=== PATIENT | male | born 1950 | race Caucasian/White ===

== ENCOUNTER 2021-04-12 08:37 | Outpatient (REF) | payer MEDICARE, SELFPAY ==
[2021-04-12 11:13] LABS: Hematocrit 36.9 % (42-52); Hemoglobin 12.3 g/dl (14.0-18.0); Mean Corpuscular HGB Conc 33.3 g/dl (31.0-36.0); Mean Corpuscular Hemoglobin 29.5 pg (27.0-33.0); Mean Corpuscular Volume 88.5 fL (80-98); Mean Platelet Volume 10.5 fL (9.4-12.4); Platelet Count 209 X10*3/uL (160-400); Red Blood Count 4.17 X10*6/uL (4.60-5.80); Red Cell Distribution Width 12.6 % (11.0-16.0); White Blood Count 6.8 X10*3/uL (4.8-10.8)
[2021-04-12 11:21] LABS: Estimated Average Glucose 140 mg/dL; Hemoglobin A1c % 6.5 %
[2021-04-12 11:58] LABS: Alanine Aminotransferase 27 U/L (0-40); Albumin Level 4.5 g/dL (3.5-5.0); Alkaline Phosphatase 73 U/L (39-117); Anion Gap 16 (12-20); Aspartate Amino Transferase 19 U/L (5-37); Bilirubin Total 0.4 mg/dL (0.0-1.0); Blood Urea Nitrogen 15 mg/dL (9-16); Calcium 9.6 mg/dL (8.4-10.2); Carbon Dioxide 24 mmol/L (22-29); Chloride 105 mmol/L (96-108); Estimated Glomerular Filt Rate > 60; Glucose Random 151 mg/dL (60-115); Potassium 4.7 mmol/L (3.3-5.1); Sodium 140 mmol/L (135-145)
[2021-04-12 12:09] LABS: Creatinine Urine 68.89 mg/dL; Microalbum/Creatinine Ratio Ur 18.8 ug/mg cr
== END 2021-04-12 08:38 | disposition home or self-care (01) ==
LOC: HO.MANLDS 08:37
PROVIDERS: Visit Provider Internal Medicine
DX: E11.9 Type 2 diabetes mellitus without complications (principal)
CPT/HCPCS: 36415; 80053; 82043; 83036; 85027

== ENCOUNTER 2021-08-16 11:55 | Outpatient (REF) | payer MEDICARE, SELFPAY ==
[2021-08-16 13:17] LABS: Alanine Aminotransferase 41 U/L (0-40); Albumin Level 4.4 g/dL (3.5-5.0); Alkaline Phosphatase 77 U/L (39-117); Anion Gap 14 (12-20); Aspartate Amino Transferase 26 U/L (5-37); Bilirubin Total 0.5 mg/dL (0.0-1.0); Blood Urea Nitrogen 17 mg/dL (9-16); Calcium 9.2 mg/dL (8.4-10.2); Carbon Dioxide 25 mmol/L (22-29); Chloride 103 mmol/L (96-108); Cholesterol 176 mg/dL; Estimated Glomerular Filt Rate > 60; Glucose Fasting 160 mg/dL (60-99); HDL Cholesterol 40 mg/dL; LDL Cholesterol Calculated 71 mg/dl; Potassium 5.2 mmol/L (3.3-5.1); Sodium 137 mmol/L (135-145); Total Protein 7.2 g/dL (6.5-8.0); Triglycerides 326 mg/dL
[2021-08-16 13:19] LABS: Creatinine Urine 61.64 mg/dL; Microalbum/Creatinine Ratio Ur 38.9 ug/mg cr
[2021-08-16 13:43] LABS: Estimated Average Glucose 137 mg/dL; Hemoglobin A1c % 6.4 %
== END 2021-08-16 11:56 | disposition home or self-care (01) ==
LOC: HO.MANLDS 11:55
PROVIDERS: PCP Internal Medicine; Visit Provider Internal Medicine
DX: E11.9 Type 2 diabetes mellitus without complications (principal)
CPT/HCPCS: 36415; 80053; 80061; 82043; 83036

== ENCOUNTER 2022-02-28 11:05 | Outpatient (REF) | payer MEDICARE, SELFPAY ==
[2022-02-28 13:27] LABS: Estimated Average Glucose 128 mg/dL; Hemoglobin A1C 150.8502 umol/L; Hemoglobin A1c % 6.1 %
[2022-03-03 04:04] LABS: ~HepC Num1 0.07 S/CO (0.00-0.79); ~Hepatitis C Antibody Nonreactive (Nonreactive)
== END 2022-02-28 11:06 | disposition home or self-care (01) ==
LOC: HO.MANLDS 11:05
PROVIDERS: PCP Internal Medicine; Visit Provider Internal Medicine
DX: Z11.59 Encounter for screening for other viral diseases (principal); E11.9 Type 2 diabetes mellitus without complications
CPT/HCPCS: 36415; 83036; 86803

== ENCOUNTER 2022-07-23 12:10 | Outpatient (REF) | payer MEDICARE, SELFPAY ==
[2022-07-23 19:16] LABS: Alanine Aminotransferase 32 U/L (0-40); Albumin Level 4.4 g/dL (3.5-5.0); Alkaline Phosphatase 75 U/L (39-117); Anion Gap 20 (12-20); Aspartate Amino Transferase 26 U/L (5-37); Bilirubin Total 0.5 mg/dL (0.0-1.0); Blood Urea Nitrogen 15 mg/dL (9-16); Calcium 9.6 mg/dL (8.4-10.2); Carbon Dioxide 22 mmol/L (22-29); Chloride 104 mmol/L (96-108); Estimated Glomerular Filt Rate > 60; Glucose Random 64 mg/dL (60-115); Magnesium 1.9 mg/dL (1.6-2.6); Potassium 4.7 mmol/L (3.3-5.1); Sodium 141 mmol/L (135-145); Total Protein 7.2 g/dL (6.5-8.0)
[2022-07-25 12:06] LABS: Calcium (PTHI) 9.8 mg/dL (8.6-10.3); PTHI 22 pg/mL (16-77)
== END 2022-07-23 12:11 | disposition home or self-care (01) ==
LOC: HO.MANLDS 12:10
PROVIDERS: Visit Provider Physician Assistant
DX: I21.4 Non-ST elevation (NSTEMI) myocardial infarction (principal); R53.83 Other fatigue
CPT/HCPCS: 36415; 80053; 83735; 83970

== ENCOUNTER 2022-12-26 11:22 | Outpatient (REF) | payer MEDICARE, SELFPAY ==
[2022-12-26 13:27] LABS: Estimated Average Glucose 134 mg/dL; Hemoglobin A1c % 6.3 %
== END 2022-12-26 11:23 | disposition home or self-care (01) ==
LOC: HO.MANLDS 11:22
PROVIDERS: Visit Provider Internal Medicine
DX: E11.9 Type 2 diabetes mellitus without complications (principal)
CPT/HCPCS: 36415; 83036

== ENCOUNTER 2023-01-10 20:06 | Emergency (ER) | payer MEDICARE, SELFPAY ==
[2023-01-10] VITALS (7 sets, daily range): BP systolic 151–200; BP diastolic 53–74; PULSE 82–102; RESP 12–20; TEMP 36.7–36.8; O2SAT 96–99; BMI 29.8
--- NOTE | ~2023-01-10 | CT_ITS ---
EXAMINATION CTA CHEST, ABDOMEN AND PELVIS CLINICAL INFORMATION: Pain. Rule out aortic dissection. COMPARISON: None. TECHNIQUE: Multidetector volumetric CT imaging of the chest, abdomen and pelvis was obtained after the administration of 70 mL Omnipaque 350 intravenous contrast without immediate adverse reactions. Coronal and sagittal reformats were reviewed. This CT examination was performed using dose optimization techniques as appropriate, variously including the following: *Automated exposure control *Adjustment of mA and/or kV according to patient size (this includes techniques or standardized protocols for targeted exams where dose is matched to indication/reason for exam; i.e. extremities or head) *Use of iterative reconstruction technique DLP: 1091 mGy-cm FINDINGS: VASCULAR: No aortic aneurysm, penetrating atherosclerotic ulceration or dissection. Assessment for intramural hematoma is limited due to the lack of a noncontrast phase, however there is no obvious intimal thickening to suggest that diagnosis. The aorta that show moderate calcific atherosclerotic change. 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 There is high-grade focal stenosis of the superior mesenteric artery just distal to the takeoff of a replaced right hepatic artery. Inferior mesenteric artery is patent. Bilateral iliac and femoral arteries are patent. NONVASCULAR: CHEST: Mild emphysema. Diffuse mild bronchial wall thickening without bronchiectasis. No parenchymal consolidation or pneumonitis. Mild cardiomegaly. No pericardial effusion. Triple vessel coronary calcifications. No mediastinal, hilar or supraclavicular lymphadenopathy. Imaged thyroid gland is normal. Chest wall are unremarkable. ABDOMEN/PELVIS: Liver normal in size, contour and morphology. No focal liver lesions. Cholecystectomy. Pancreas, spleen, adrenal glands and kidneys are unremarkable. A simple cyst in the lower pole of the right kidney is benign. No follow-up imaging recommended. No bowel related abnormalities. Fiducial markers in the prostate. Bladder unremarkable. MUSCULOSKELETAL: No acute or suspicious osseous abnormalities. CT/CT angio abdomen pelvis IMPRESSION: * No aortic aneurysm or dissection. * No acute findings within the chest, abdomen or pelvis. * Triple vessel coronary calcifications. * Mild emphysema and airways disease. 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
--- NOTE | ~2023-01-10 | CT_ITS ---
EXAMINATION: CT HEAD WITHOUT CONTRAST CLINICAL INFORMATION: Altered mental status COMPARISON: None available. TECHNIQUE: Contiguous axial imaging was performed from the skull base to vertex without intravenous administration of contrast. This CT examination was performed using dose optimization techniques as appropriate, variously including the following: *Automated exposure control *Adjustment of mA and/or kV according to patient size (this includes techniques or standardized protocols for targeted exams where dose is matched to indication/reason for exam; i.e. extremities or head) *Use of iterative reconstruction technique DLP: 884 mGy-cm FINDINGS: Residual intravascular contrast from the previous CTA of the chest, abdomen and pelvis is present. This limits assessment for intracranial bleeding. No significant intraparenchymal hemorrhage. No extra-axial collection. Butts-white matter interfaces distinct. Mild patchy subcortical and periventricular white matter low-attenuation changes statistically relates to chronic small vessel ischemic disease. No calvarial skull base fracture. Paranasal sinuses are clear. CT/CT head/brain wo IV con IMPRESSION: * No acute intracranial pathology. * Mild chronic white matter small vessel ischemic changes.
--- NOTE | 2023-01-10 08:47 | ECG_ITS ---
Test Reason : cp Blood Pressure : / mmHG Vent. Rate : 094 BPM Atrial Rate : 094 BPM P-R Int : 154 ms QRS Dur : 086 ms QT Int : 328 ms P-R-T Axes : 061 055 055 degrees QTc Int : 410 ms Normal sinus rhythm Normal ECG When compared with ECG of 10-JAN-2023 20:11, Premature ventricular complexes are no longer Present Referred By: Laya Meneses Electronically Signed By:Dallas Elaine
--- NOTE | 2023-01-10 20:09 | ECG_ITS ---
Test Reason : cp Blood Pressure : / mmHG Vent. Rate : 097 BPM Atrial Rate : 097 BPM P-R Int : 210 ms QRS Dur : 078 ms QT Int : 366 ms P-R-T Axes : 026 019 016 degrees QTc Int : 464 ms Sinus rhythm with 1st degree A-V block with occasional Premature ventricular complexes Nonspecific ST abnormality Abnormal ECG No previous ECGs available Referred By: Laya Meneses Electronically Signed By:KRISTEL MEZA
--- NOTE | 2023-01-10 20:19 | ED_ITS ---
HPI - Chest Pain General Chief Complaint: Chest Pain Stated Complaint: chest pain Time Seen by Provider: 01/10/23 20:09 History of Present Illness HPI narrative: Patient is a 72-year-old male presented today with having chest pain sudden onset radiating to the back. [place] with a history of coronary artery disease status post stent complaining of excruciating chest pain going from the front radiating to the back. Has a history of hypertension. Unable to give any more detail as to what kind of past medical history he has. Patient denies any fever chills no coughing or congestion upper respiratory symptom. Screaming in pain. Related Data Allergies Allergy/AdvReac Type Severity Reaction Status Date / Time Unable to Assess Allergy Verified 01/10/23 20:10 Review of Systems Review of Systems: Positive chest pain Yes all other systems are reviewed and are negative [facility] Past Medical History Attestation statement: The following information was validated with the patient. Social History Social History Advance Directives: No Advance Directives Information Provided: Yes Physical Exam Vital Signs: Vital Signs: Last Vital Signs Temp 98.1 F 01/10/23 21:45 Pulse 82 01/10/23 23:40 Resp 12 01/10/23 23:40 BP 153/53 H 01/10/23 23:40 Pulse Ox 96 01/10/23 23:40 O2 Del Method Room Air 01/10/23 23:40 O2 Flow Rate 2 01/10/23 21:45 BMI result Body Mass Index 29.8 Appearance: Alert. Oriented X3. Complaining of excruciating pain. Eyes: Pupils equal, round and reactive to light. ENT: Pharynx normal. Neck: Normal inspection. Neck supple. No lymph nodes noted. No crepitus CVS: Normal heart rate and rhythm. Pulses normal. Normal S1 and S2 Respiratory: No respiratory distress. Breath sounds normal. No Wheezing. No rales Abdomen: Soft and nontender. No rigidity. No distention. good BS x4 Skin: Skin warm and dry. Normal skin color. Normal skin turgor. Extremities: No lower extremity edema. Neurovascular intact to all extremities. No Lacerations. No Rash Neuro: Oriented X 3. No motor deficit. No sensory deficit. Moving all extermities. No slurred speech Medications Administered Discontinued Medications Generic Name Dose Route Start Last Admin Trade Name Farida PRN Reason Stop Dose Admin Al Hydroxide/Mg Hydroxide 30 ml 01/11/23 00:24 01/11/23 00:33 Magnesium Hydrox/Alum Hydrox 30 Ml Oral.Susp PO 01/11/23 00:25 30 ml ONCE ONE Administration Dicyclomine HCl 10 mg 01/11/23 00:24 01/11/23 00:33 Dicyclomine Hcl 10 Mg Capsule PO 01/11/23 00:25 10 mg ONCE ONE Administration Iohexol 100 ml 01/10/23 20:47 01/10/23 20:47 Iohexol 350 Mg/Ml 100 Ml Infus..Btl IV 01/10/23 20:48 70 ml ONCE ONE Administration Lidocaine HCl 15 ml 01/11/23 00:24 01/11/23 00:33 Lidocaine Hcl Viscous 2 % 15 Ml Solution MUCOUS MEM 01/11/23 00:25 15 ml ONCE ONE Administration Morphine Sulfate 4 mg 01/10/23 20:15 01/10/23 20:44 Morphine Sulfate 4 Mg/Ml Cartridge IVPUSH 01/10/23 20:16 4 mg ONCE ONE Administration Protocol Medical Decision Making Medical Decision Making [facility] Narrative: Patient presents today with having extreme chest pain that goes from the front to the back. Patient appears lethargic when he arrived. Appears grossly intoxicated. Patient's EKG showed no evidence for a STEMI. Patient's blood pressure elevated. Grabbing his chest with a previous history of coronary artery disease and stents a CTA of the chest abdomen pelvis was done to rule out the possibility of dissection. This CTA was negative. No dissection noted. No pneumonia no pneumothorax no rib fracture. No gross abdominal pathology noted. Patient's troponin was 10, 2nd set was also about 10. Third set was 13. Grossly negative. No evidence for ACS. Patient's alcohol is elevated. At 140. Explained to patient the need to not drive when he is grossly intoxicated. Patient states understanding. He is being discharged home. Close follow-up on an outpatient basis. His symptom improved after GI cocktail. His history is not consistent with a pulmonary emboli. Differential Diagnosis Differential Diagnoses: The differential diagnosis associated with the presentation includes ACS, dissection, pneumonia, pneumothorax Lab Data [facility] Lab Attestation statement: I reviewed the patient's lab results. 01/10/23 20:18 01/10/23 20:18 Labs: Lab Results 01/10/23 01/10/23 01/10/23 Range/Units 20:18 20:18 20:18 WBC 11.6 H (4.8-10.8) X10*3/uL RBC 4.25 L (4.60-5.80) X10*6/uL Hgb 12.8 L (14.0-18.0) g/dl Hct 37.3 L (42.0-52.0) % MCV 87.8 (80.0-98.0) fL MCH 30.1 (27.0-33.0) pg MCHC 34.3 (31.0-36.0) g/dl RDW 12.4 (11.0-16.0) % Plt Count 238 (160-400) X10*3/uL MPV 10.2 (9.4-12.4) fL Immature Gran % (Auto) 0.3 (0.0-0.4) % Neut % (Auto) 58.3 (45-73) % Lymph % (Auto) 27.2 (20-40) % [place] % (Auto) 11.4 H (2-11) % Eos % (Auto) 2.2 (0-4) % Baso % (Auto) 0.6 (0-2) % Lymph # (Auto) 3.2 (1.2-4.9) X10*3/uL [place] # (Auto) 1.3 H (0.1-1.2) X10*3/uL Eos # (Auto) 0.3 (0.0-0.4) X10*3/uL Baso # (Auto) 0.1 (0.0-0.2) X10*3/uL Abs Immat Gran (auto) 0.04 H (0.00-0.03) X10*3/uL Absolute Neuts (auto) 6.7 (2.0-8.3) x10*3/uL Absolute Nucleated RBC 0.000 (0.0-0.012) X10*3/uL Nucleated RBC % (auto) 0.0 (0.0-0.2) /100WBC PT 10.2 (10.0-13.1) SEC INR 0.9 (0.9-1.1) D-Dimer High Sensitivty 345 NG/ML Sodium 140 (135-145) mmol/L Potassium 4.7 (3.3-5.1) mmol/L Chloride 105 (96-108) mmol/L Carbon Dioxide 22 (22-29) mmol/L Anion Gap 18 (12-20) BUN 17 H (9-16) mg/dL Creatinine 1.10 (0.5-1.4) mg/dL Estim Creat Clear Calc 62.5 Estimated GFR > 60 Random Glucose 130 H (60-115) mg/dL Calcium 9.3 (8.4-10.2) mg/dL Magnesium 2.2 (1.6-2.6) mg/dL Troponin I High Sens (<3.5-35.0) ng/L Ethyl Alcohol mg/dL COVID-19 ([facility]) (Negative) COVID-19 Clin Com 01/10/23 01/10/23 01/10/23 Range/Units 20:18 20:18 22:07 WBC (4.8-10.8) X10*3/uL RBC (4.60-5.80) X10*6/uL Hgb (14.0-18.0) g/dl Hct (42.0-52.0) % MCV (80.0-98.0) fL MCH (27.0-33.0) pg MCHC (31.0-36.0) g/dl RDW (11.0-16.0) % Plt Count (160-400) X10*3/uL MPV (9.4-12.4) fL Immature Gran % (Auto) (0.0-0.4) % Neut % (Auto) (45-73) % Lymph % (Auto) (20-40) % [place] % (Auto) (2-11) % Eos % (Auto) (0-4) % Baso % (Auto) (0-2) % Lymph # (Auto) (1.2-4.9) X10*3/uL [place] # (Auto) (0.1-1.2) X10*3/uL Eos # (Auto) (0.0-0.4) X10*3/uL Baso # (Auto) (0.0-0.2) X10*3/uL Abs Immat Gran (auto) (0.00-0.03) X10*3/uL Absolute Neuts (auto) (2.0-8.3) x10*3/uL Absolute Nucleated RBC (0.0-0.012) X10*3/uL Nucleated RBC % (auto) (0.0-0.2) /100WBC PT (10.0-13.1) SEC INR (0.9-1.1) D-Dimer High Sensitivty NG/ML Sodium (135-145) mmol/L Potassium (3.3-5.1) mmol/L Chloride (96-108) mmol/L Carbon Dioxide (22-29) mmol/L Anion Gap (12-20) BUN (9-16) mg/dL Creatinine (0.5-1.4) mg/dL Estim Creat Clear Calc Estimated GFR Random Glucose (60-115) mg/dL Calcium (8.4-10.2) mg/dL Magnesium (1.6-2.6) mg/dL Troponin I High Sens 10.0 10.8 (<3.5-35.0) ng/L Ethyl Alcohol 140 mg/dL COVID-19 ([facility]) (Negative) COVID-19 Clin Com 01/10/23 01/11/23 Range/Units 23:00 00:54 WBC (4.8-10.8) X10*3/uL RBC (4.60-5.80) X10*6/uL Hgb (14.0-18.0) g/dl Hct (42.0-52.0) % MCV (80.0-98.0) fL MCH (27.0-33.0) pg MCHC (31.0-36.0) g/dl RDW (11.0-16.0) % Plt Count (160-400) X10*3/uL MPV (9.4-12.4) fL Immature Gran % (Auto) (0.0-0.4) % Neut % (Auto) (45-73) % Lymph % (Auto) (20-40) % [place] % (Auto) (2-11) % Eos % (Auto) (0-4) % Baso % (Auto) (0-2) % Lymph # (Auto) (1.2-4.9) X10*3/uL [place] # (Auto) (0.1-1.2) X10*3/uL Eos # (Auto) (0.0-0.4) X10*3/uL Baso # (Auto) (0.0-0.2) X10*3/uL Abs Immat Gran (auto) (0.00-0.03) X10*3/uL Absolute Neuts (auto) (2.0-8.3) x10*3/uL Absolute Nucleated RBC (0.0-0.012) X10*3/uL Nucleated RBC % (auto) (0.0-0.2) /100WBC PT (10.0-13.1) SEC INR (0.9-1.1) D-Dimer High Sensitivty NG/ML Sodium (135-145) mmol/L Potassium (3.3-5.1) mmol/L Chloride (96-108) mmol/L Carbon Dioxide (22-29) mmol/L Anion Gap (12-20) BUN (9-16) mg/dL Creatinine (0.5-1.4) mg/dL Estim Creat Clear Calc Estimated GFR Random Glucose (60-115) mg/dL Calcium (8.4-10.2) mg/dL Magnesium (1.6-2.6) mg/dL Troponin I High Sens 13.4 (<3.5-35.0) ng/L Ethyl Alcohol mg/dL COVID-19 ([facility]) Negative (Negative) COVID-19 Clin Com See Note Independent Interpretation I performed an independent interpretation of an: EKG Interpretation: Patient's EKG showed a heart rate of 80 MO QRS QTC within normal limits there is no acute ST segment elevation noted. Radiology Impression Discussion of test interpretation with radiology: I have reviewed the radiologist's reading. External Record Review External record reviewed: Inpatient record Chronic Conditions Patient?s care impacted by: Hypertension ACS Discharge Plan Discharge Clinical Impression: Chest pain, Alcohol intoxication Patient Disposition: Home, Self-Care Instructions: Chest Pain (DC), Alcohol Intoxication (ED) Referrals: Physician,Unknown J [Primary Care Provider] - 01/13/23
[2023-01-10 20:23] LABS: MANUAL DIFF FLAG NO
[2023-01-10 20:24] LABS: Basophils Absolute Auto 0.1 X10*3/uL (0.0-0.2); Basophils Percent Auto 0.6 % (0-2); Eosinophils Absolute Auto 0.3 X10*3/uL (0.0-0.4); Eosinophils Percent Auto 2.2 % (0-4); Hematocrit 37.3 % (42.0-52.0); Hemoglobin 12.8 g/dl (14.0-18.0); Imm Gran Abs Auto 0.04 X10*3/uL (0.00-0.03); Imm Gran Pct Auto 0.3 % (0.0-0.4); Lymphocytes Absolute Auto 3.2 X10*3/uL (1.2-4.9); Lymphocytes Percent Auto 27.2 % (20-40); Mean Corpuscular HGB Conc 34.3 g/dl (31.0-36.0); Mean Corpuscular Hemoglobin 30.1 pg (27.0-33.0); Mean Corpuscular Volume 87.8 fL (80.0-98.0); Mean Platelet Volume 10.2 fL (9.4-12.4); Monocytes Absolute Auto 1.3 X10*3/uL (0.1-1.2); Monocytes Percent Auto 11.4 % (2-11); Neutrophils Absolute Auto 6.7 x10*3/uL (2.0-8.3); Neutrophils Percent Auto 58.3 % (45-73); Platelet Count 238 X10*3/uL (160-400); Red Blood Count 4.25 X10*6/uL (4.60-5.80); Red Cell Distribution Width 12.4 % (11.0-16.0); White Blood Count 11.6 X10*3/uL (4.8-10.8)
--- NOTE | 2023-01-10 20:25 | PC.NURSE ---
Pt alert and oriented to self and situation. Reports severe chest pain. Guarding at the chest area. Speaking in short sentences. EKG obtained. 20G IV line started on the left hand after multiple attempts. Labs drawn and sent. MD at bedside. Pt currently at Ct scan.
[2023-01-10 20:30] LABS: INTERNATIONAL NORM RATIO 0.9 (0.9-1.1); Prothrombin Time 10.2 SEC (10.0-13.1)
[2023-01-10 20:32] LABS: D Dimer High Sensitivity 345 NG/ML
[2023-01-10 20:40] LABS: Ethanol 140 mg/dL
[2023-01-10 20:44] LABS: Anion Gap 18 (12-20); Blood Urea Nitrogen 17 mg/dL (9-16); Calcium 9.3 mg/dL (8.4-10.2); Carbon Dioxide 22 mmol/L (22-29); Chloride 105 mmol/L (96-108); Creatinine Clr Calc Pharmacy 62.5; Estimated Glomerular Filt Rate > 60; Glucose Random 130 mg/dL (60-115); Magnesium 2.2 mg/dL (1.6-2.6); Potassium 4.7 mmol/L (3.3-5.1); Sodium 140 mmol/L (135-145)
[2023-01-10] MEDS: Morphine Sulfate 4 MG/ML CARTRIDGE IVPUSH (20:44)
[2023-01-10] MEDS: iohexoL 350 MG/ML 100 ML INFUS..BTL IV (20:47)
--- NOTE | 2023-01-10 21:50 | MHC.EDTECH ---
Patients vitals were obtained and patient voided in urinal 850cc of clear yellow urine. call landers in reach
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
[2023-01-10 22:34] LABS: Troponin-I High Sensitivity 10.8 ng/L (<3.5-35.0)
[2023-01-10 23:21] LABS: COVID-19 Test Negative (Negative); IDNOW Serial# 6674DD1D
[2023-01-11] MEDS: Dicyclomine HCl 10 MG CAPSULE PO (00:33)
[2023-01-11] MEDS: Lidocaine HCl Viscous 2 % 15 ML SOLUTION MUCOUS MEM (00:33)
[2023-01-11] MEDS: Magnesium Hydrox/Alum Hydrox 30 ML ORAL.SUSP PO (00:33)
--- NOTE | 2023-01-11 00:57 | PC.NURSE ---
Pt medicated as ordered. Tolerated well. Lab sample collected and sent to the lab. Pt aware of plan of care.
[2023-01-11 01:19] LABS: Troponin-I High Sensitivity 13.4 ng/L (<3.5-35.0)
[2023-01-11 01:51] VITALS: BP 169/53; PULSE 77; RESP 14; TEMP 36.8; O2SAT 93
--- NOTE | 2023-01-11 01:52 | PC.NURSE ---
Pt aox4 resting at the bedside in no apparent distress. IV line removed with no complications. Pt tolerated well. Discharge instructions reviewed with pt. Pt verbalizes understanding.
== END 2023-01-11 01:53 | disposition home or self-care (01) ==
PROVIDERS: Emergency Provider Emergency Medicine Emergency Medical Services
DX: R07.9 Chest pain, unspecified (principal); F10.920 Alcohol use, unspecified with intoxication, uncomplicated; Y90.6 Blood alcohol level of 120-199 mg/100 ml; Z20.822 Contact with and (suspected) exposure to COVID-19; I10 Essential (primary) hypertension
CPT/HCPCS: 36415; 70450; 71275; 74174; 80048; 82077; 83735; 84484; 85025; 85379; 85610; 87635; 93005; 96374; 99284; J2270; Q9967

== ENCOUNTER 2023-07-14 12:40 | Outpatient (REF) | payer MEDICARE, SELFPAY ==
[2023-07-14 15:17] LABS: Estimated Average Glucose 140 mg/dL; Hemoglobin A1c % 6.5 % (<6.0)
[2023-07-14 15:23] LABS: Alanine Aminotransferase 12 U/L (0-40); Albumin Level 4.6 g/dL (3.5-5.0); Alkaline Phosphatase 85 U/L (39-117); Anion Gap 15 (12-20); Aspartate Amino Transferase 15 U/L (5-37); Bilirubin Total 0.5 mg/dL (0.0-1.0); Blood Urea Nitrogen 20 mg/dL (9-16); Calcium 10.2 mg/dL (8.4-10.2); Carbon Dioxide 24 mmol/L (22-29); Chloride 101 mmol/L (96-108); Estimated Glomerular Filt Rate > 60; Glucose Random 152 mg/dL (60-115); Potassium 4.2 mmol/L (3.3-5.1); Sodium 136 mmol/L (135-145); Total Protein 7.8 g/dL (6.5-8.0)
== END 2023-07-14 12:41 | disposition home or self-care (01) ==
LOC: HO.MANLDS 12:40
PROVIDERS: Visit Provider Internal Medicine
DX: I10 Essential (primary) hypertension (principal); E11.9 Type 2 diabetes mellitus without complications
CPT/HCPCS: 36415; 80053; 83036

== ENCOUNTER → 2024-06-05 23:59 | Outpatient (BNV) | payer MEDICARE, SELFPAY | PROVIDERS: Visit Provider Internal Medicine Cardiovascular Disease | DX: I21.11 ST elevation (STEMI) myocardial infarction involving right coronary artery (principal) | CPT/HCPCS: 92941; 92944; 92978; 93458; 99152 ==

== ENCOUNTER 2025-03-17 10:48 | Outpatient (REF) | payer MEDICARE, SELFPAY ==
[2025-03-17 13:22] LABS: MANUAL DIFF FLAG NO
[2025-03-17 13:31] LABS: Basophils Percent Auto 0.4 % (0-2); Eosinophils Absolute Auto 0.2 X10*3/uL (0.0-0.4); Eosinophils Percent Auto 1.7 % (0-4); Hematocrit 35.9 % (42.0-52.0); Imm Gran Abs Auto 0.03 X10*3/uL (0.00-0.03); Imm Gran Pct Auto 0.3 % (0.0-0.4); Lymphocytes Absolute Auto 1.9 X10*3/uL (1.2-4.9); Lymphocytes Percent Auto 20.5 % (20-40); Mean Corpuscular HGB Conc 33.4 g/dl (31.0-36.0); Mean Corpuscular Hemoglobin 29.1 pg (27.0-33.0); Mean Corpuscular Volume 86.9 fL (80.0-98.0); Monocytes Absolute Auto 0.9 X10*3/uL (0.1-1.2); Monocytes Percent Auto 9.6 % (2-11); Neutrophils Absolute Auto 6.2 x10*3/uL (2.0-8.3); Neutrophils Percent Auto 67.5 % (45-73); Platelet Count 220 X10*3/uL (160-400); Red Blood Count 4.13 X10*6/uL (4.60-5.80); Red Cell Distribution Width 12.2 % (11.0-16.0); White Blood Count 9.2 X10*3/uL (4.8-10.8)
[2025-03-17 14:06] LABS: Estimated Average Glucose 177 mg/dL; Hemoglobin A1c % 7.8 % (<6.0)
[2025-03-17 14:09] LABS: Creatinine Urine 55.67 mg/dL; Microalbum/Creatinine Ratio Ur 23.3 ug/mg cr (<30)
[2025-03-17 14:35] LABS: Prostate Specific Antigen < 0.10 ng/mL (<0.05-4.0)
[2025-03-17 14:53] LABS: Anion Gap 10 (12-20)
[2025-03-17 14:56] LABS: Alanine Aminotransferase 25 U/L (0-40); Albumin Level 4.3 g/dL (3.5-5.0); Alkaline Phosphatase 80 U/L (39-117); Aspartate Amino Transferase 23 U/L (5-37); Bilirubin Total 0.4 mg/dL (0.0-1.0); Blood Urea Nitrogen 17 mg/dL (9-16); Calcium 9.5 mg/dL (8.4-10.2); Carbon Dioxide 28 mmol/L (22-29); Chloride 104 mmol/L (96-108); Cholesterol 118 mg/dL (<200); Estimated Glomerular Filt Rate > 60; Glucose Random 203 mg/dL (60-115); HDL Cholesterol 41 mg/dL (>40); LDL Cholesterol Calculated 41 mg/dL (<100); Potassium 4.6 mmol/L (3.3-5.1); Sodium 137 mmol/L (135-145); Total Protein 6.9 g/dL (6.5-8.0); Triglycerides 181 mg/dL (<150)
== END 2025-03-17 10:49 | disposition home or self-care (01) ==
LOC: HO.MANLDS 10:48
PROVIDERS: Visit Provider Internal Medicine
DX: E78.2 Mixed hyperlipidemia (principal); I10 Essential (primary) hypertension; E11.9 Type 2 diabetes mellitus without complications; Z12.5 Encounter for screening for malignant neoplasm of prostate
CPT/HCPCS: 36415; 80053; 80061; 82043; 82570; 83036; 84153; 85025

== ENCOUNTER 2025-06-28 15:36 | Outpatient (REF) | payer MEDICARE, SELFPAY ==
--- OUTSIDE RECORDS SUMMARY | 2016-11-17 01:00 | XMS_ITS | Encounter Summary ---
Author Organization [facility] Address [address] [place] [address] Phone Care Team Providers Care Business Assistant Name Role Phone MariluzFredrick thornton Cody DANIELS Primary Care Provider [phone] Reason for Visit * MRI/CAT Scan - Closed Specialty Diagnoses / Procedures Referred By Tina coles Referred To Contact Procedures MRI Abdomen Outside (No Interpretation) Juan Billy MD [address] [place] [address] Phone: tel: [email or web address] Referral ID Status Reason Start Date Expiration Date Visits Re quested Visits Authorized [id number] Closed 12/02/2016 12/02/2017 1 1 Encounter Details Date Type Department Care Team (Late st Contact Info) Description 11/17/2016 Hospital Encounter [facility] [address] [place] [address] Juan Billy MD [address] [place] [address] Social History Tobacco Use Types Packs/Day Years Used Date Smoking Tobacco: Never Smokeless Tobacco: Never Alcohol Use Standard Drinks/Week Comments Not Currently 0 (1 standard drink = 0.6 oz pur e alcohol) Occ Home Health Assessment: Transportation Answer Date Recorded Lack of Transportation (Medical) Yes 06/14/2025 Lack of Transportation (Non-Medical) Yes 06/14/2025 Patient Unable or Declines to Respond No 06/14/2025 Education Answer Date Recorded Are you interested in more education? Not on carlos alberto e 02/05/2023 Are you concerned about learning? Not on file 02/05/2023 No 02/05/2023 No 02/05/2023 Food Answer Date Recorded Within the past 6 months we worried whether our food would run out before we got money to buy more. Never True 06/23/2025 Within the past 6 months the food we bought just didn't last and we didn't have enough money to get more. Never True Residential Stability Answer Date Recor ded What is your housing situation today? I have indra sing 06/23/2025 How many times have you move d in the past 12 months? Zero (I did not move) 06/23/2025 Paying for Meds Answer Date Recorded Do you have trouble paying for medicines? No 06/23/2025 Paying Utility Bills Answer Date Record ed Do you have trouble paying your heating or elect ricity bill? No 06/23/2025 Transportation Answer Date Recorded Has the lack of transportati on kept you from medical appointments or from getting medications? No 06/23/2025 Digital Access Answer Date Recorded No 06/23/2025 Yes 06/23/2025 Do you have reliable internet access at home? Ye s 06/23/2025 Do you have a device (e.g., phone, tablet, computer) with a working camera? Yes 06/23/2025 Intimate Partner Violence Answer Date R ecorded Are you denied basic needs s uch as food, clothing, or medical care? No 06/23/2025 In the past 12 months have y ou been in a relationship with a person who hurts, threatens, or tries to control you? No 06/23/2025 Are you denied basic needs s uch as food, clothing, or medical care? No 06/23/2025 In the past 12 months have y ou been in a relationship with a person who hurts, threatens, or tries to control you? No 06/23/2025 Sex and Gender Information Value Date Recorded Sex Assigned at Male 04/12/2018 10:53 AM EDT Legal Sex Male 5:57 PM EST Gender Identity Male 04/12/2018 10:53 AM EDT Sexual Orientation Straight 10/19/2017 9: 43 AM EST Occupation Industry Job Start Date Job End Date retired, worked 34 yrs at [employer] Not on file Not on file Not on file documented as of this encounter Functional Status * Calculated C-SSRS Risk Score (Lifetime/Recent) Answer Date of Assessment Author No Risk Indicated 06/23/2025 3:28 PM EDT Cheli Melchor, MARCELINA * [place] Suicide Severity Rating Scale (Screener/Recent Self-Report) Question Answer Date of Assessment Author 1. Wish to be (Past 1 Month) No 06/23/2025 3:28 PM EDT Cheli Melchor, MARCELINA 2. Non-Specific Active Suicidal Thoughts (Past 1 Month) No 06/23/2025 3:28 PM EDT Cheli Melchor, MARCELINA 6. Suicidal Behavior (Lifetime) No 06/23/2025 3:28 PM EDT Cheli Melchor RN documented as of this encounter Plan of Treatment Upcoming Encounters Date Type Department Care Team (Late st Contact Info) Description 06/23/2025 Procedure Pass Event Monitor [address] [place] [id number] 07/12/2025 8:30 AM EDT Appointment Non-Invasive Cardiology [address] [place] [address] Gene Oreilly, CATTLE DIPPER [address] [place] [id number] 07/21/2025 9:15 AM EDT Appointment Event Monitor [address] [place] [address] [place] [address] Gene Oreilly, CATTLE DIPPER [address] [place] [id number] 09/05/2025 9:30 AM EST Office Visit [facility] [address] [place] [address] Manpreet Huber MD [address] [place] [id number] 09/25/2025 11:00 AM EST Office Visit [facility] [address], [address] [place] [address] Gene Oreilly, CATTLE DIPPER [address] [place] [address] [email or web address] documented as of this encounter Goals Goal Patient Goal Type Associated Problems Recent Progress Patient-Stated? Author Acute Care Plan Acute Care Plan Cheli Pal RN Note: Current Management Plans: Clinical: Jesus is a 69 yo male with history of asthma, laryngeal spasm, vocal cord dysfunction and pseudoseizures who has had an increase in presentation to our hospital in acute respiratory distress. The intent of this acute care plan is to alert medical staff when patient arrives of noninvasive measures that should be reviewed and provided to patient prior to intubation. Patient does have anxiety and depression, and this has been a albarran factor in increasing his level of vocal cord dysfunction and leading to increase respiratory distress. Psychosocial updates include: early jail, loss of financial stability, psychological and physical limitations, and most recently separation and planned divorce Current Homecare: Patient is followed by [facility] Sheet Rock Applicator Nancy who is working to connect patient with home TELEVISION INSTALLER and BH services. On Arrival to ED: When patient presents with respiratory distress utilize the follow techniques to assist in prevention of intubation: 1. Remind patient to take deep breath 2. Encourage patient to pant with tongue out 3. Medicate with Ativan 4. Typical medical workup can still be obtained during this period (CXR and ABG) 5. Review possibility of BIPAP instead of intubation to relieve laryngospasms 6. Review current stressors and if consult should be made for BH 7. Verify patient compliance of medication administration If patient is to be discharged home from ED: Send Case Management Consult in [facility] to follow up that homecare services are in place and if additional services are needed this can then be coordinated If patient is to be admitted to Hospital: Consult should be made for BH and services upon admission [facility] Psychiatric and Psychosocial Considerations: Anxiety and Depression and recent separation and pending divorce Issues/Plan: Lack of connection to therapist in the community. Plan SW to connect with INSURANCE PROCESSING CLERK to determine if appointment has been made for outpatient mental health follow up and patient assigned a therapist.CM also will work with [facility] to connect patient to SW/RN home services. SW will also discuss the possibility of LYSSA. Issues/Plan: High risk of respiratory distress. Plan once patient is admitted to the unit medical staff should follow the same noninvasive strategies provided in the ED: When patient presents with respiratory distress utilize the follow techniques to assist in prevention of intubation: 1. Remind patient to take deep breath 2. Encourage patient to pant with tongue out 3. Medicate with Ativan 4. Typical medical workup can still be obtained during this period (CXR and ABG) 5. Review possibility of BIPAP instead of intubation to relieve laryngospasms 6. Review current stressors and if consult should be made for BH 7. Verify patient compliance of medication administration Patient Care Team: Patient Care Team: Fredrick Barkley DO as PCP - General (Internal Medicine) Manpreet Huber MD (Intensive Care) Al[facility] Specialists: Care Plan Endorsed or authored by: Cheli Busby RN Director of Case Management and Social Work Reviewed on 04/27/2019 with Ute alcantar CM , Ava GARCIA, Romana RUGGIERO, Kelsie Musa CM documented as of this encounter Procedures Procedure Name Priority Date/Time Associated Diagnosis Comments MRI ABDOMEN OUTSIDE (NO INTERPRETATION) Routine 11/17/2016 12:00 AM EST documented in this encounter Results * MRI Abdomen Outside (No Interpretation) (11/17/2016 12:00 AM EST) Narrative [facility] IMG INTERFACES - 12/02/2016 10:01 AM EST This study is for PACS storage only and not for interpretation. us Juan Billy MD IMG OUTSIDE IMAGING W/OUT INTERPRETATION Final Result [facility] INTERFACES documented in this encounter Visit Diagnoses Not on filedocumented in this encounter Additional Health Concerns Infection Onset Date Last Indicated Resolved Time CoV-Risk 05/14/2020 05/16/2020 05/30/2020 1:23 AM EDT CoV-Risk 06/11/2022 06/11/2022 06/22/2022 1:22 AM EDT CoV-Risk 06/04/2024 06/04/2024 06/15/2024 1:21 AM EDT CoV-Risk Comment:Per note documentation 05/13/2025 05/13/2025 11:51 PM EDT documented as of this encounter Care Teams Business Assistant Relationship Specialty Start Date End Date Fredrick Barkley DO [address] [place] [address] [email or web address] PCP - General 04/11/14 08/16/17 documented as of this encounter Additional Source Comments The information contained in this document represents components of the legal health record. It is not the complete legal health record.[facility]
--- OUTSIDE RECORDS SUMMARY | 2025-06-23 10:30 | XMS_ITS | Encounter Summary ---
Author Organization [facility] Address [address] [place] [address] Phone Care Team Providers Care Scratch Brusher Name Role Phone Manpreet Huber MD Unavailable [phone] Alfonzo Luis DO Unavailable [phone] Mary Willard SALESPERSON [employer] Unavailable [phone] Fredrick Barkley DO Primary Care Provider [phone] Reason for Referral * MRI/CAT Scan - New Request Specialty Diagnoses / Procedures Referred By Tina coles Referred To Contact Radiology Diagnoses Chest pain, unspecified type Procedures NC Myocardial Perfusion Pharmacologic Stress Multiple Gene Oreilly CNP [address] [place] [address] Phone: tel: fax: mailto:[email or web address] Referral ID Status Reason Start Date Expiration Date V isits Requested Visits Authorized [id number] New Request 06/23/2025 1 1 * - New Request Specialty Diagnoses / Procedures Referred By Tina coles Referred To Contact Diagnoses Paroxysmal atrial fibrillation Procedures MCT (Mobile Cardiac Telemetry) Gene Oreilly CNP [address] [place] [address] Phone: tel: fax: mailto:[email or web address] Referral ID Status Reason Start Date Expiration Date V isits Requested Visits Authorized [id number] New Request 06/23/2025 1 1 Reason for Visit * Consultation (Routine) - Authorized Specialty Diagnoses / Procedures Referred By Tina coles Referred To Contact Cardiology Diagnoses fuv Procedures FOLLOW UP Fredrick Barkley, DO [address] [place] [address] [place] [address] Phone: tel: fax: mailto:[email or web address] [address] Floor, [address] [place] [address] Phone: tel: fax: Referral ID Status Reason Start Date Expiration Date V isits Requested Visits Authorized [id number] Authorized 05/24/2025 05/24/2026 99 99 Encounter Details Date Type Department Care Team (Latest Contact Info) Description 06/23/2025 10:30 AM EDT Office Visit [facility] [address] [place] [address] [address]rd Floor, [address] [place] [address] Gene Oreilly CNP [address] [place] [address] [email or web address] Atrial fibrillation (Primary Dx); Paroxysmal atrial fibrillation; Chest pain, unspecified type; Coronary artery disease involving [place] coronary artery of [place] heart without angina pectoris Social History Tobacco Use Types Packs/Day Years [...] End Date retired, worked 34 yrs at [employer] Not on file Not on file Not on file documented as of this encounter Last Filed Vital Signs Vital Sign Reading Time Taken Comments Blood Pressure 124/80 06/23/2025 10:38 AM EDT Pulse 98 06/23/2025 10:38 AM EDT Temperature - - Respiratory Rate - - Oxygen Saturation 99% 06/23/2025 10:38 AM EDT Inhaled Oxygen Concentration - - Weight 105.7 kg (233 lb) 06/23/2025 10:38 AM EDT Height 177.8 cm (5' 10 ) 06/23/2025 10:38 AM EDT Body Mass Index 33.43 06/23/2025 10:38 AM EDT documented in this encounter Functional Status * Calculated C-SSRS Risk Score (Lifetime/Recent) Answer Date of Assessment Author No Risk Indicated 06/23/2025 3:28 PM EDT Cheli Melchor RN * [place] Suicide Severity Rating Scale (Screener/Recent Self-Report) Question Answer Date of Assessment Author 1. Wish to be (Past 1 Month) No 06/23/2025 3:28 PM EDT Cheli Melchor RN 2. Non-Specific Active Suicidal Thoughts (Past 1 Month) No 06/23/2025 3:28 PM EDT Cheli Melchor, MARCELINA 6. Suicidal Behavior (Lifetime) No 06/23/2025 3:28 PM EDT Cheli Melchor, MARCELINA documented as of this encounter Miscellaneous Notes * Assessment & Plan Note - Gene Oreilly CNP - 06/23/2025 11:11 AM EDT Associated Problem(s): Atrial fibrillation EKG today showing sinus rhythm at rate 94 bpm, normal axis, no significant ST or T wave abnormality. There is a first-degree AV block. He was recently taken off of beta-mark therapy due to symptomatic bradycardia. Will continue Xarelto 20 mg daily He was supposed to get a MCT monitor on discharge from the hospital, this was never done for some reason. I am reordering the MCT monitor. * Assessment & Plan Note - Gene Oreilly CNP - 06/23/2025 11:10 AM EDT Associated Problem(s): Coronary artery disease involving [place] coronary artery of [place] heart S/p PCI to LAD in Jul 2022 and to mid RCA in May 2024. For the past 2 months has been experiencing chest discomfort which can happen at rest but notably worsens with exertion. Previously this has been attributed to his cervical spinal stenosis however heis concerned because he states this is the exact same symptom he had prior to his PCI a year ago. Will try to expedite an updated nuclear stress test Continue current doses of Plavix/Xarelto Continue rosuvastatin 40 mg For antianginal therapy I would have him start amlodipine 5 mg daily, I am going to reduce his lisinopril to 5 mg daily as his blood pressure is typically in the 120s systolic. I did give him a prescription for sublingual nitroglycerin to be taken as needed. ED precautions discussed documented in this encounter Plan of Treatment Upcoming Encounters Date Type Department Care Team (Late st Contact Info) Description 06/23/2025 Procedure Pass Event Monitor [address] [place] [address] 07/12/2025 8:30 AM EDT Appointment Non-Invasive Cardiology [address] [place] [address] Gene Oreilly CNP [address] [place] [address] 07/21/2025 9:15 AM EDT Appointment Event Monitor [address] [place] [address] Gene Oreilly CNP [address] [place] [address] 09/05/2025 9:30 AM EST Office Visit [facility] [address] [place] [address] Manpreet Huber MD [address] [place] [address] 09/25/2025 11:00 AM EST Office Visit [facility] [address] Floor, [address] [place] [address] Gene Oreilly, ENVIRONMENTAL HEALTH SANITARIAN [address] [place] [address] [email or web address] Scheduled Orders Name Type Priority Associated Diagnoses Orde r Schedule ECG 12-LEAD ECG Routine Atrial fibrillation Ordered: 06/23/2025 MCT (Mobile Cardiac Telemetry) Cardiac Monitors Routine Paroxysmal atrial fibrillation Expected: 06/23/2025, Expires: 12/21/2025 NC Myocardial Perfusion Pharmacologic Stress Multiple Nuclear Cardiology Routine Chest pain, unspecified type Expected: 06/23/2025, Expires: 09/22/2025 documented as of this encounter Goals Goal [...] increase respiratory distress. Psychosocial updates include: early care home, loss of financial stability, psychological and physical limitations, and most recently separation and planned divorce Current Homecare: Patient is followed by [facility] Insurance Marine Gear Keeper Nancy who is working to connect patient with home [employer] REPA[employer] SUPERVISOR and services. On Arrival to ED: When patient [...] from ED: Send Case Management Consult in [facility] to follow up that homecare services are in place and if additional services are needed this can then be coordinated If patient is to be admitted to Hospital: Consult should be made for and services upon admission [facility] Psychosocial Considerations: Anxiety and Depression and recent separation and pending divorce Issues/Plan: Lack of connection to therapist in the community. Plan SW to connect with [employer] OPER[employer] to determine if appointment has been made for outpatient mental health follow up and patient assigned a therapist.CM also will work with Clary MOSLEY to connect patient to SW/RN home services. SW will also discuss the possibility of [facility]. Issues/Plan: High risk of respiratory distress. Plan [...] and if consult should be made for 7. Verify patient compliance of medication administration Patient Care Team: Patient Care Team: Fredrick Barkley DO as PCP - General (Internal Medicine) Manpreet Huber MD (Intensive Care) [facility] Specialists: Care Plan Endorsed or authored by: Cheli Busby RN Director of Case Management and Social Work Reviewed on 04/27/2019 with Ute alcantar CM , Ava GARCIA, Romana RUGGIERO, Kelsie Musa documented as of this encounter Visit Diagnoses Diagnosis Atrial fibrillation- Primary Paroxysmal atrial fibrillation Atrial fibrillation Chest pain, unspecified type Coronary artery disease involving [place] coronary artery of [place] heart without angina pectoris documented in this encounter Additional Health Concerns Assessment Noted Time PHQ-9 Depression Total Score: 8 09/02/20 22 9:53 AM EST documented as of this encounter Care Teams Scratch Brusher Relationship Specialty Start Date End Date Fredrick Barkley DO [address] [place] [id number] [email or web address] PCP - General Internal Medicine 05/05/25 Manpreet Huber MD [address] [place] [id number] [email or web address] Intensive Care 02/24/19 Alfonzo Luis DO [address] [place] [id number] [email or web address] Oncologist Hematology and Oncology 09/03/20 Mary Willard FNP [address] [place] [phone] [email or web address] Registered Nurse Nurse Practitioner 12/01/24 documented as of this encounter Additional Source Comments The information contained in this document represents components of the legal health record. It is not the complete legal health record.[facility]
--- OUTSIDE RECORDS SUMMARY | 2025-06-23 18:49 | XMS_ITS | Encounter Summary ---
Author Organization [facility] Address [address] [place] [address] Phone Care Team Providers Care Lining Layer Name Role Phone Manpreet Huber MD Unavailable [phone] Alfonzo Luis DO Unavailable [phone] Mary Willard IN CLASSROOM TUTOR Unavailable [phone] Fredrick Barkley DO Primary Care Provider [phone] Reason for Visit * Reason Comments Chest Pain Encounter Details Date Type Department Care Team (Late st Contact Info) Description 06/23/2025 6:49 PM EDT - 06/24/2025 2:01 AM EDT Emergency [facility] [address] [place] [address] Ly Cho MD [address] [place] [address] [email or web address] Discharge Disposition: Home or Self Care Social History Tobacco Use Types Packs/Day Years [...] ecorded Are you denied basic needs [facility] as food, clothing, or medical care? No 06/23/2025 In the past 12 months have y ou been in a relationship with a person who hurts, threatens, or tries to control you? No 06/23/2025 Are you denied basic needs [facility] as food, clothing, or medical care? No [...] End Date retired, worked 34 yrs at [employer] Not on file Not on file Not on file documented as of this encounter Last Filed Vital Signs Vital Sign Reading Time Taken Comments Blood Pressure 123/56 06/24/2025 1:15 AM EDT Pulse 85 06/24/2025 1:15 AM EDT Temperature 36.7 C (98.1 F) 06/24/2025 1:15 AM EDT Respiratory Rate 17 06/24/2025 1:15 AM EDT Oxygen Saturation 96% 06/24/2025 1:15 AM EDT Inhaled Oxygen Concentration - - Weight 105.7 kg (233 lb) 06/23/2025 10:58 PM EDT Height 177.8 cm (5' 10 ) 06/23/2025 10:58 PM EDT Body Mass Index 33.43 06/23/2025 10:58 PM EDT documented in this encounter Functional Status * Calculated C-SSRS Risk Score (Lifetime/Recent) Answer Date of Assessment Author No Risk Indicated 06/23/2025 3:28 PM EDT Cheli Melchor RN * [place] Suicide Severity Rating Scale (Screener/Recent Self-Report) Question Answer Date of Assessment Author 1. Wish to be (Past 1 Month) No 06/23/2025 3:28 PM EDT Cheli Melchor RN 2. Non-Specific Active Suicidal Thoughts (Past 1 Month) No 06/23/2025 3:28 PM EDT Cheli Melchor, MARCELINA 6. Suicidal Behavior (Lifetime) No 06/23/2025 3:28 PM EDT Cheli Melchor RN documented as of this encounter Discharge Instructions * Discharge Instructions* Ly Cho MD - 06/24/2025 1:10 AM EDT You were seen in the emergency department for chest pain. Your EKG did not show evidence of a heartattack or abnormal heart rhythm and your blood work is reassuring without evidence of injury to theheart or any other organ dysfunction. The CAT scans of your abdomen and chest did show some narrowing of the arteries in your stomach, your celiac artery and your superior mesenteric artery. I have included the contact information for one of the local vascular surgeons, Dr. Singh, I recommend youschedule a follow-up appointment to keep a close eye on these blood vessels. Please also follow-up with a finisher cold rolling as well as your primary care physician. Return to the emergency department at any time for any new or worsening symptoms including abdominal pain, nausea or vomiting, fevers, chest pain, shortness of breath or leg swelling, or for any other concerns * Attachments The following attachments cannot be sent through Care Everywhere. * Chest Pain (Kiswahili) documented in this encounter Medications at Time of Discharge abiraterone (ZYTIGA) 250 mg TabIndications:Pro state cancer Take 4 tablets (1,000 mg total) by mouth daily. 120 tablet 11 07/06/2024 acetaminophen (TYLENOL) 325 mg tablet Take 3 tablets (975 mg total) by mouth every 8 (eight) hours as needed for pain (specific location in comments). 05/21/2025 amLODIPine (NORVASC) 5 MG tablet Take 1 tablet (5 mg total) by mouth daily. 30 tablet 5 06/23/2025 azelastine (ASTELIN) 137 mcg (0.1 %) nasal spray 1 spray by Nasal route 2 (two) times a day. Use in each nostril as directed 30 mL 12 03/22/2024 blood sugar diagnostic (GLUCOSE BLOOD) Strp strips ONETOUCH ULTRA BLUE TEST STRIPS test once a day blood sugar diagnostic (ONETOUCH ULTRA TEST) Strp strips OneTouch Ultra Blue Test Strips test once a day blood-glucose Misc meter OneTouch Verio Flex Meter cholecalciferol (VITAMIN D3) 25 MCG (1,000 unit) tablet Take 1,000 Units by mouth daily. clopidogrel (PLAVIX) 75 mg tablet Take 1 tablet (75 mg total) by mouth daily. 90 tablet 3 12/06/2024 DULoxetine (CYMBALTA) 60 MG capsule Take 1 capsule (60 mg total) by mouth 2 (two) times a day. 60 capsule 2 08/23/2019 ferrous gluconate 324 mg (38 mg elemental) tablet Take 1 tablet (324 mg total) by mouth daily. 60 tablet 05/22/2025 fluticasone propionate (FLONASE) 50 mcg/actuation nasal spray 1 spray by Nasal route daily. 16 g 2 05/16/2025 gabapentin (NEURONTIN) 100 MG capsule Take 2 capsules (200 mg total) by mouth 3 (three) times a day. 300 capsule 05/21/2025 glipiZIDE (GLUCOTROL) 5 MG tablet Take 5 mg by mouth daily. 05/08/2021 lancets 28 gauge Misc lidocaine 4 % Place 1 patch onto the skin daily. 30 patch 05/22/2025 lisinopril (PRINIVIL,ZESTRIL) 10 MG tablet Take 0.5 tablets (5 mg total) by mouth daily. 45 tablet 3 06/23/2025 LORazepam (ATIVAN) 0.5 MG tablet Take 1 tablet (0.5 mg total) by mouth every 8 (eight) hours as needed for anxiety (Symptoms of vocal cord dysfunction). 20 tablet 05/16/2025 nitroglycerin (NITROSTAT) 0.[address] 1 tablet (0.4 mg total) under the tongue every 5 (five) minutes as needed for chest pain. 25 tablet 3 06/23/2025 OLANZapine (ZYPREXA) 5 MG tablet Take 0.5 tablets (2.5 mg total) by mouth nightly at bedtime. 30 tablet 1 05/16/2025 rivaroxaban (XARELTO) 20 mg TabIndications:Par oxysmal atrial fibrillation Take 1 tablet (20 mg total) by mouth daily with dinner. 90 tablet 3 12/06/2024 rosuvastatin (CRESTOR) 40 MG tablet Take 1 tablet (40 mg total) by mouth daily. 90 tablet 3 12/06/2024 tamsulosin (FLOMAX) 0.4 mg Cap Take 0.4 mg by mouth nightly. 1/2 HOUR AFTER LAST MEAL OF THE DAY traZODone (DESYREL) 150 MG tablet Take 150 mg by mouth nightly. azelastine (ASTEPRO) 205.5 mcg (0.15 %) E. Lopez 1 spray by Each Nare route daily. 30 mL 11 03/17/2024 predniSONE (DELTASONE) 5 MG tablet TAKE 1 TABLET(5 MG) BY MOUTH DAILY WITH BREAKFAST 90 tablet 3 04/06/2024 documented as of this encounter ED Notes * Estrella Bello RN - 06/24/2025 2:00 AM EDT ED Discharge Nursing Note Reviewed D/C instructions with Pt. Pt verbalized understanding. Pt assisted out of department with EMS. Report given to EMS. * Kimberly Montes RN - 06/23/2025 9:30 PM EDT ED Nursing Progress Note Attempted to place IV on patient at this time per provider. Pt adamant that he needs an US guided IV. Pt let this RN look for a vein, but midway though looking, pt again insisted on US. US RN notified, reports he will be able to place IV shortly. * Cheli Melchor RN - 06/23/2025 3:27 PM EDT BIBA, bedside report given. Pt started with CP this am and saw finisher cold rolling who did an EKG and scheduled pt for a F/U appt in July. CP continued at home and pt took Nitro spray x 3 without relief.Asa 324mg given by EMS.HR 110-130 pre hospital. afib hx. Pain mid chest that radiates into his shoulder blades. Pain worse with movement. Critical QTC on EKG, reviewed with RADHA Davis. * Karen Pena PA-C - 06/23/2025 3:21 PM EDT Chief Complaint Chief Complaint Patient presents with Chest Pain History of Present Illness 75-year-old male, with PMHx A-fib on Xarelto, pulmonary embolism, DM 2, CAD s/p PCI into the LAD and RCA, hypertension, hyperlipidemia, presenting for evaluation of chest pain. The patient reports that he developed chest pain this morning as he was laying down. The pain is substernal and radiates throughout his chest to his shoulder blades and down his right arm. He describes the pain as a grabbing sensation, but also ripping. He reports some sweats and exertional shortness of breath. Painful to sit upright and take a deep breath. He took nitroglycerin at home, but reports this did not have an effect of his pain. He was provided a loading dose of aspirin by EMS. He had a cardiology appointment today where he did mention this pain. He was ordered for a Holter monitorand stress test which he says will not be done until next month and that he cannot wait this long. Unless otherwise specified, I have reviewed and agree with the triage and nursing notes. ROS A ten point review of systems was negative except what was noted in the HPI. Review of Systems Past Medical History Past Medical History: Diagnosis Date Alcohol abuse Anxiety Asthma [id number] NML FEV1, uses Xopenex as needed, meter tester primary Cecile Atrial fibrillation Benign prostatic hyperplasia Callosity Chronic rhinitis Coronary artery disease s/p PCI in 2020 Depressive disorder Episodes of decreased attentiveness and alertness felt c/w a conversion disorder GERD (gastroesophageal reflux disease) History of pulmonary embolism 04/04/2019 Hyperlipidemia Hypertensive disorder Laryngospasm laryngospasm and vocal cord dysfunction due to Sz/panic attacks and possible conversion d/o, improved on phenobarb. STEFAN on CPAP Since 12/20 (decreased to 5mgH20) Panic disorder with agoraphobia Parkinsons Prostate cancer [address] Luis, leuprolide every 3 months, diagnosis 2016 radiation treatment, recurrence 2019 PTSD (post-traumatic stress disorder) Pulmonary embolism Seizures with fevers as a child. Type 2 diabetes mellitus with diabetic neuropathy With neuropathy Past Surgical History Past Surgical History: Procedure Laterality Date ATRIAL ABLATION SURGERY ablation for AVNRT CARDIAC CATHETERIZATION cardiac catheterization, no coronary disease CHOLECYSTECTOMY ESOPHAGOGASTRODUODENOSCOPY N/A 12/17/2017 Performed by Manpreet Fuentes MD at [facility] ENDOSCOPY [facility] Home Medications Prior to Admission medications Medication Sig abiraterone (ZYTIGA) 250 mg Tab 1,000 mg, Oral, Daily acetaminophen (TYLENOL) 325 mg tablet 975 mg, Oral, Every 8 hours PRN amLODIPine (NORVASC) 5 MG tablet 5 mg, Oral, Daily azelastine (ASTELIN) 137 mcg (0.1 %) nasal spray 1 spray, Nasal, 2 times daily, Use in each nostrilas directed blood sugar diagnostic (GLUCOSE BLOOD) Strp strips ONETOUCH ULTRA BLUE TEST STRIPS test once a day blood sugar diagnostic (ONETOUCH ULTRA TEST) Strp strips OneTouch Ultra Blue Test Strips test once a day blood-glucose Misc meter OneTouch Verio Flex Meter cholecalciferol (VITAMIN D3) 25 MCG (1,000 unit) tablet 1,000 Units, Daily clopidogrel (PLAVIX) 75 mg tablet 75 mg, Oral, Daily DULoxetine (CYMBALTA) 60 MG capsule 60 mg, Oral, 2 times daily ferrous gluconate 324 mg (38 mg elemental) tablet 324 mg, Oral, Daily fluticasone propionate (FLONASE) 50 mcg/actuation nasal spray 1 spray, Nasal, Daily gabapentin (NEURONTIN) 100 MG capsule 200 mg, Oral, 3 times daily glipiZIDE (GLUCOTROL) 5 MG tablet 5 mg, Daily lancets 28 gauge Misc lidocaine 4 % 1 patch, Transdermal, Every 24 hours lisinopril (PRINIVIL,ZESTRIL) 10 MG tablet 5 mg, Oral, Daily LORazepam (ATIVAN) 0.5 MG tablet 0.5 mg, Oral, Every 8 hours PRN nitroglycerin (NITROSTAT) 0.4 MG SL tablet 0.4 mg, Sublingual, Every 5 min PRN OLANZapine (ZYPREXA) 5 MG tablet 2.5 mg, Oral, Nightly predniSONE (DELTASONE) 5 MG tablet TAKE 1 TABLET(5 MG) BY MOUTH DAILY WITH BREAKFAST rivaroxaban (XARELTO) 20 mg Tab 20 mg, Oral, Daily with dinner rosuvastatin (CRESTOR) 40 MG tablet 40 mg, Oral, Daily tamsulosin (FLOMAX) 0.4 mg Cap 0.4 mg, Nightly traZODone (DESYREL) 150 MG tablet 150 mg, Nightly azelastine (ASTEPRO) 205.5 mcg (0.15 %) E. Lopez 1 spray, Each Nare, Daily Allergies Allergies Allergen Reactions Albuterol Shortness Of Breath and Unknown Quetiapine Swelling Buspar [Buspirone] Tremor Social and Family History Social History Tobacco Use Smoking status: Never Smokeless tobacco: Never Substance Use Topics Alcohol use: Not Currently Comment: Occ Social History Substance and Sexual Activity Drug Use No Family History Problem Relation Age of Onset Diabetes mellitus Sibling Cancer Sibling Breast cancer Mother Alcohol abuse Father Physical Exam Vital Signs: ED Triage Vitals [06/23/25 1528] Encounter Vitals Group BP 106/64 Systolic BP Percentile Diastolic BP Percentile Heart Rate (!) 109 Respiratory Rate 20 Temperature 36 ??C (96.8 ??F) Temp Source Tympanic SpO2 92 % Weight Height Head Circumference Peak Flow Pain Score Pain Loc Pain Education Exclude from Growth Chart Physical Exam Vitals and nursing note reviewed. Constitutional: General: He is not in acute distress. Appearance: He is obese. HENT: Head: Normocephalic. Cardiovascular: Rate and Rhythm: Normal rate and regular rhythm. Pulses: Radial pulses are 2+ on the right side and 2+ on the left side. Heart sounds: Murmur heard. Pulmonary: Effort: Pulmonary effort is normal. Breath sounds: Normal breath sounds. Chest: Chest wall: Tenderness present. Abdominal: Palpations: Abdomen is soft. Tenderness: There is no abdominal tenderness. Musculoskeletal: Right lower leg: No tenderness. No edema. Left lower leg: No tenderness. No edema. Skin: General: Skin is warm and dry. Neurological: General: No focal deficit present. Mental Status: He is alert. Laboratory Testing Results for orders placed or performed during the hospital encounter of 06/23/25 Troponin Specimen: Blood Result Value Ref Range Troponin-T, HS Gen5 13 0 - 14 ng/L Troponin Specimen: Blood Result Value Ref Range Troponin-T, HS Gen5 13 0 - 14 ng/L Basic metabolic panel Specimen: Blood Result Value Ref Range SODIUM 138 133 - 146 mmol/L CHLORIDE 101 96 - 108 mmol/L POTASSIUM 4.2 3.3 - 5.1 mmol/L CO2 23 21 - 35 mmol/L BUN 18 6 - 19 mg/dL CREATININE 1.10 0.5 - 1.5 mg/dL GLUCOSE 287 (H) 70 - 99 mg/dL CALCIUM 9.7 8.4 - 10.3 mg/dL EGFR 70 >59 mL/min/1.73m2 ANION GAP 18 10 - 20 mmol/L CBC and differential Specimen: Blood Result Value Ref Range WBC 7.37 4.00 - 11.00 K/uL RBC 3.80 (L) 4.50 - 5.90 M/uL HGB 11.1 (L) 13.5 - 17.5 g/dL HCT 33.6 (L) 41.0 - 53.0 % PLT 225 150 - 450 K/uL MCV 88.4 80.0 - 100.0 fL MCH 29.2 27.0 - 31.0 pg MCHC 33.0 32.0 - 36.0 g/dL RDW 12.6 11.5 - 14.5 % MPV 11.0 8.4 - 12.0 fL NRBC 0.00 0.00 /100 WBCs ABSOLUTE NRBC 0.00 0.00 K/uL DIFF METHOD Auto NEUTS 68.3 48.0 - 76.0 % LYMPHS 20.2 18.0 - 41.0 % MONOS 9.5 4.0 - 11.0 % EOS 1.1 0.0 - 5.0 % BASOS 0.5 0.0 - 1.5 % Granulocytes, immature (%) 0.4 0.0 - 0.9 % ABSOLUTE NEUTS 5.03 1.92 - 7.60 K/uL ABSOLUTE LYMPHS 1.49 0.72 - 4.10 K/uL ABSOLUTE MONOS 0.70 0.16 - 1.10 K/uL ABSOLUTE EOS 0.08 0.00 - 0.50 K/uL ABSOLUTE BASOS 0.04 0.00 - 0.15 K/uL Granulocytes, immature 0.03 0.00 - 0.09 K/uL Radiology Testing XR Chest Final Result No acute abnormality. Angio Chest (Results Pending) CT Angio Abdomen/Pelvis (Results Pending) ED Medication from 06/23/2025 1521 to 06/23/2025 2337 Date/Time Order Dose Route Action Action by Comments 06/23/2025 8201 EDT iohexoL (OMNIPAQUE-350) 350 mg iodine/mL solution 100 mL 100 mL Intravenous Given Gilmar Raygoza -- [facility] Assessment and Plan: 75 y/o M presents to the emergency department for evaluation of chest pain. EKG obtained on arrival showing sinus tachycardia, heart rate 109, QTc 568 ms. High-sensitivity troponins are normal. Patient is describing chest pain radiating to his shoulders with some element of ripping in nature;murmur on exam. History of aortic valve disease. CTA obtained to rule out dissection. Considered acute coronary syndrome. The patient has coronary artery disease with prior stenting. Initial EKG and troponins are reassuring. I did repeat his EKG given that he has been in the department for 6 hours at time of initial provider contact still complaining of chest pain. New EKG shows sinus rhythm withfirst-degree AV block, inferior infarct cited on prior EKGs. No significant ST segment depression or elevation. His pain did not respond to nitroglycerin at home. Plan to consult cardiology as patient does have a moderate HEART score. With pleuritic pain, pulmonary embolism was considered; however,the patient is anticoagulated. This seems less likely. When having the patient sit upright to auscultate his lungs, he did report worsening pain. Pushing over the chest wall did seem to provoke this pain as well. There could be a strong musculoskeletal component. Category 1: Tests, Studies or Independent Historians: Prior Data Reviewed: Prior notes reviewed. ED Course as of 06/23/252336Jun 23, [id number] On my read of CTA, I do not see evidence of dissection. Pending discussion with cardiology. [AR] 2335 Dr. Whiteside reassured that troponins are normal. With pain since this morning, if truly ischemic pain, troponins would be abnormally high. Does not feel this is insurance follow up representative of ACS. If normalCTA, anticipate discharge home with close outpatient follow-up. [AR] ED Course User Index [AR] Karen Pena PA-C Clinical Impressions as of 06/23/252336 Chest pain, unspecified type Clinical Impression Diagnosis Description Comment Final diagnosis Chest pain, unspecified type Chest pain, unspecified type -- Disposition: Signed out Karen Pena PA-C 06/23/252336 * Ly Cho MD - 06/23/2025 3:21 PM EDT ED Course ED Course as of 06/24/25108Jun 23, [id number] On my read of CTA, I do not see evidence of dissection. Pending discussion with cardiology. [AR] 2335 Dr. Whiteside reassured that troponins are normal. With pain since this morning, if truly ischemic pain, troponins would be abnormally high. Does not feel this is insurance follow up representative of ACS. If normalCTA, anticipate discharge home with close outpatient follow-up. [AR] ED Course User Index [AR] Karen Pena PA-C Clinical Impressions as of 06/24/25108 Chest pain, unspecified type Assessment and Plan: Signed out to me pending CTA results which demonstrate no acute pathology but noted severe stenosisof the celiac and SMA. No abdominal pain, chest pain resolved with GI cocktail. Cardiac workup is negative with flat troponins, nonischemic EKG. Stable for discharge with outpatient PCP, vascular and cardiology follow-up and strict return precautions. Patient understands and agrees with plan peer Attestation: I saw the patient as part of a shared visit with the advanced practice practitioner. I personally made or approved the management plan and take responsibility for the patient management. Ly Cho MD 06/24/25108 documented in this encounter Plan of Treatment Upcoming Encounters Date Type Department Care Team (Late st Contact Info) Description 06/23/2025 Procedure Pass Event Monitor [address] [place] [address] 07/12/2025 8:30 AM EDT Appointment Non-Invasive Cardiology [address] [place] [address] Gene Oreilly, ELENI [address] [place] [id number] 07/21/2025 9:15 AM EDT Appointment Event Monitor [address] [place] [address] Gene Oreilly, ELENI [address] [place] [id number] 09/05/2025 9:30 AM EST Office Visit [facility] [address] [place] [id number] Manpreet Huber MD [address] [place] [phone] 09/25/2025 11:00 AM EST Office Visit [facility] [address], [address] [place] [address] Gene Oreilly, FLOORING SALESPERSON [address] [place] [address] [email or web address] documented as of this encounter Goals Goal [...] increase respiratory distress. Psychosocial updates include: early custodial, loss of financial stability, psychological and physical limitations, and most recently separation and planned divorce Current Homecare: Patient is followed by [facility] [employer] Grocery Carrier Nancy who is working to connect patient with home ACCOUNTS PAYABLE OR RECEIVABLE CLERK and BH services. On Arrival to ED: [...] from ED: Send Case Management Consult in [facility] to follow up that homecare services [...] the community. Plan SW to connect with INJECTION MAINTENANCE TECHNICIAN to determine if appointment has been made for outpatient mental health follow up and patient assigned a therapist.CM also will work with Clary MOSLEY to connect patient to SW/RN home services. SW will also discuss the possibility of [facility]. Issues/Plan: High risk of respiratory distress. Plan [...] Procedure Name Priority Date/Time Associated Diagnosis Comments CT ANGIO ABDOMEN/PELVIS WITH AND WITHOUT CONTRAST Routine 06/23/2025 10:[address] ANGIO CHEST WITH AND WITHOUT CONTRAST Routine 06/23/2025 10:51 PM EDT ECG 12-LEAD STAT 06/23/2025 10:06 PM EDT XR CHEST PA AND LATERAL 2 VIEWS Routine 06/23/2025 9:28 PM EDT TROPONIN STAT 06/23/2025 5:03 PM EDT CBC AND DIFFERENTIAL STAT 06/23/2025 3:58 PM EDT TROPONIN STAT 06/23/2025 3:58 PM EDT BASIC METABOLIC PANEL STAT 06/23/2025 3:58 PM EDT ECG 12-LEAD STAT 06/23/2025 3:32 PM EDT documented in this encounter Results * CT ANGIO ABDOMEN/PELVIS WITH AND WITHOUT CONTRAST (06/23/2025 10:51 PM EDT) Anatomical Region Laterality Modality Abdomen, Abdominal Vasculature C omputed Tomography 06/24/2025 12:1 5 AM EDT Impressions 06/24/2025 12:30 AM EDT 1. No aortic dissection or alternative CT explanation for symptoms. 2. Mesenteric vessels are patent without evidence of end-organ hypoperfusion. 3. 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 Narrative 06/24/2025 12:[address] ANGIO ABDOMEN/PELVIS WITH AND WITHOUT CONTRAST, CT ANGIO CHEST WITH AND WITHOUT CONTRAST Referring clinician's provided indication for this examination in Epic: * Abdominal pain, aortic dissection suspected TECHNIQUE: 1. Multidetector-row CTA of the chest was performed before and after administration of intravenous contrast using tailored dose modulation techniques. Images were reconstructed in the axial, coronal, and sagittal planes, including angiographic image post-processing. 2. Multidetector-row CTA of the abdomen and pelvis was performed with intravenous contrast using tailored dose modulation techniques. Images were reconstructed in the axial, coronal, and sagittal planes, including angiographic image post- processing. COMPARISON: CT chest 06/04/2024, CT abdomen pelvis 12/02/2021. FINDINGS: VASCULAR: Aorta: There is no aortic dissection, aneurysm, intramural hematoma, or occlusion. Atherosclerosis. Contrast Extravasation: None. Pulmonary Arteries: Well opacified without pulmonary embolus. Branch Arteries: No stenosis, occlusion, or dissection involving the arch vessel origins. The celiac axis, SMA and JOSIAS are patent. Severe narrowing at the origin of the celiac axis due to atherosclerosis and mild narrowing at the origin of the SMA. There is severe narrowing proximally of the SMA due to atherosclerosis (8/) with distal reconstitution. Renal arteries are patent bilaterally. Aorto-iliac system is patent without significant stenosis bilaterally. NON-VASCULAR: CHEST: Devices/Tubes/Lines: None. Lungs: No pulmonary nodules or consolidation. The airways are clear. Pleura: No pleural effusion or pneumothorax. Mediastinum: No thyroid nodules. Heart and pericardium are normal. Moderate amount of coronary calcifications. Lymph Nodes: No enlarged supraclavicular, axillary, mediastinal, or hilar lymph nodes. Chest Wall: No chest wall mass. Bones/Soft Tissues: No significant abnormality. ABDOMEN/PELVIS: Liver: No focal lesions. Biliary: Cholecystectomy. No biliary ductal dilatation. Spleen: No splenomegaly or focal lesions. Pancreas: No masses or ductal dilatation. Adrenal Glands: No nodules. Kidneys/Ureters: Right parapelvic renal cyst. No solid masses, stones, or hydronephrosis. Bowel: Normal appendix. Normal small bowel and colon. Peritoneum/Retroperitoneum: No masses, pneumoperitoneum, or fluid. Lymph Nodes: No lymphadenopathy. Pelvic Organs/Bladder: No mass. Bones/Soft Tissues: No significant abnormality. L4-5 posterior fusion. Procedure Note César Grey MD - 06/24/2025 CT ANGIO ABDOMEN/PELVIS WITH AND WITHOUT CONTRAST, CT ANGIO CHEST WITH ANDWITHOUT CONTRAST Referring clinician's provided indication for this examination in Epic: *Abdominal pain, aortic dissection suspected TECHNIQUE: 1. Multidetector-row CTA of the chest was performed before and afteradministration of intravenous contrast using tailored dose modulationtechniques. Images were reconstructed in the axial, coronal, and sagittalplanes, including angiographic image post-processing. 2. Multidetector-row CTA of the abdomen and pelvis was performed withintravenous contrast using tailored dose modulation techniques. Imageswere reconstructed in the axial, coronal, and sagittal planes, includingangiographic image post- processing. COMPARISON: CT chest 06/04/2024, CT abdomen pelvis 12/02/2021. FINDINGS: VASCULAR: Aorta: There is no aortic dissection, aneurysm, intramural hematoma, orocclusion. Atherosclerosis. Contrast Extravasation: None. Pulmonary Arteries: Well opacified without pulmonary embolus. Branch Arteries: No stenosis, occlusion, or dissection involving the archvessel origins. The celiac axis, SMA and JOSIAS are patent. Severe narrowingat the origin of the celiac axis due to atherosclerosis and mild narrowingat the origin of the SMA. There is severe narrowing proximally of the SMAdue to atherosclerosis (8/102) with distal reconstitution. Renal arteriesare patent bilaterally. Aorto-iliac system is patent without significantstenosis bilaterally. NON-VASCULAR: CHEST: Devices/Tubes/Lines: None. Lungs: No pulmonary nodules or consolidation. The airways are clear. Pleura: No pleural effusion or pneumothorax. Mediastinum: No thyroid nodules. Heart and pericardium are normal.Moderate amount of coronary calcifications. Lymph Nodes: No enlarged supraclavicular, axillary, mediastinal, or hilarlymph nodes. Chest Wall: No chest wall mass. Bones/Soft Tissues: No significant abnormality. ABDOMEN/PELVIS: Liver: No focal lesions. Biliary: Cholecystectomy. No biliary ductal dilatation. Spleen: No splenomegaly or focal lesions. Pancreas: No masses or ductal dilatation. Adrenal Glands: No nodules. Kidneys/Ureters: Right parapelvic renal cyst. No solid masses, stones, orhydronephrosis. Bowel: Normal appendix. Normal small bowel and colon. Peritoneum/Retroperitoneum: No masses, pneumoperitoneum, or fluid. Lymph Nodes: No lymphadenopathy. Pelvic Organs/Bladder: No mass. Bones/Soft Tissues: No significant abnormality. L4-5 posterior fusion. IMPRESSION: 1. No aortic dissection or alternative CT explanation for symptoms. 2. Mesenteric vessels are patent without evidence of end-organhypoperfusion. 3. 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 Karen Pena PA-C IMG CT ABD/PELVIS Final Resu lt * CT ANGIO CHEST WITH AND WITHOUT CONTRAST (06/23/2025 10:51 PM EDT) Anatomical Region Laterality Modality Chest, Thoracic Vasculature Comp uted Tomography 06/24/2025 12:1 5 AM EDT Impressions 06/24/2025 12:30 AM EDT 1. No aortic dissection or alternative CT explanation for symptoms. 2. Mesenteric vessels are patent without evidence of end-organ hypoperfusion. 3. 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 Narrative 06/24/2025 12:[address] ANGIO ABDOMEN/PELVIS WITH AND WITHOUT CONTRAST, CT ANGIO CHEST WITH AND WITHOUT CONTRAST Referring clinician's provided indication for this examination in Epic: * Abdominal pain, aortic dissection suspected TECHNIQUE: 1. Multidetector-row CTA of the chest was performed before and after administration of intravenous contrast using tailored dose modulation techniques. Images were reconstructed in the axial, coronal, and sagittal planes, including angiographic image post-processing. 2. Multidetector-row CTA of the abdomen and pelvis was performed with intravenous contrast using tailored dose modulation techniques. Images were reconstructed in the axial, coronal, and sagittal planes, including angiographic image post- processing. COMPARISON: CT chest 06/04/2024, CT abdomen pelvis 12/02/2021. FINDINGS: VASCULAR: Aorta: There is no aortic dissection, aneurysm, intramural hematoma, or occlusion. Atherosclerosis. Contrast Extravasation: None. Pulmonary Arteries: Well opacified without pulmonary embolus. Branch Arteries: No stenosis, occlusion, or dissection involving the arch vessel origins. The celiac axis, SMA and JOSIAS are patent. Severe narrowing at the origin of the celiac axis due to atherosclerosis and mild narrowing at the origin of the SMA. There is severe narrowing proximally of the SMA due to atherosclerosis (8/102) with distal reconstitution. Renal arteries are patent bilaterally. Aorto-iliac system is patent without significant stenosis bilaterally. NON-VASCULAR: CHEST: Devices/Tubes/Lines: None. Lungs: No pulmonary nodules or consolidation. The airways are clear. Pleura: No pleural effusion or pneumothorax. Mediastinum: No thyroid nodules. Heart and pericardium are normal. Moderate amount of coronary calcifications. Lymph Nodes: No enlarged supraclavicular, axillary, mediastinal, or hilar lymph nodes. Chest Wall: No chest wall mass. Bones/Soft Tissues: No significant abnormality. ABDOMEN/PELVIS: Liver: No focal lesions. Biliary: Cholecystectomy. No biliary ductal dilatation. Spleen: No splenomegaly or focal lesions. Pancreas: No masses or ductal dilatation. Adrenal Glands: No nodules. Kidneys/Ureters: Right parapelvic renal cyst. No solid masses, stones, or hydronephrosis. Bowel: Normal appendix. Normal small bowel and colon. Peritoneum/Retroperitoneum: No masses, pneumoperitoneum, or fluid. Lymph Nodes: No lymphadenopathy. Pelvic Organs/Bladder: No mass. Bones/Soft Tissues: No significant abnormality. L4-5 posterior fusion. Procedure Note Potter, Christopher A, MD - 06/24/2025 CT ANGIO ABDOMEN/PELVIS WITH AND WITHOUT CONTRAST, CT ANGIO CHEST WITH ANDWITHOUT CONTRAST Referring clinician's provided indication for this examination in Epic: *Abdominal pain, aortic dissection suspected TECHNIQUE: 1. Multidetector-row CTA of the chest was performed before and afteradministration of intravenous contrast using tailored dose modulationtechniques. Images were reconstructed in the axial, coronal, and sagittalplanes, including angiographic image post-processing. 2. Multidetector-row CTA of the abdomen and pelvis was performed withintravenous contrast using tailored dose modulation techniques. Imageswere reconstructed in the axial, coronal, and sagittal planes, includingangiographic image post- processing. COMPARISON: CT chest 06/04/2024, CT abdomen pelvis 12/02/2021. FINDINGS: VASCULAR: Aorta: There is no aortic dissection, aneurysm, intramural hematoma, orocclusion. Atherosclerosis. Contrast Extravasation: None. Pulmonary Arteries: Well opacified without pulmonary embolus. Branch Arteries: No stenosis, occlusion, or dissection involving the archvessel origins. The celiac axis, SMA and JOSIAS are patent. Severe narrowingat the origin of the celiac axis due to atherosclerosis and mild narrowingat the origin of the SMA. There is severe narrowing proximally of the SMAdue to atherosclerosis () with distal reconstitution. Renal arteriesare patent bilaterally. Aorto-iliac system is patent without significantstenosis bilaterally. NON-VASCULAR: CHEST: Devices/Tubes/Lines: None. Lungs: No pulmonary nodules or consolidation. The airways are clear. Pleura: No pleural effusion or pneumothorax. Mediastinum: No thyroid nodules. Heart and pericardium are normal.Moderate amount of coronary calcifications. Lymph Nodes: No enlarged supraclavicular, axillary, mediastinal, or hilarlymph nodes. Chest Wall: No chest wall mass. Bones/Soft Tissues: No significant abnormality. ABDOMEN/PELVIS: Liver: No focal lesions. Biliary: Cholecystectomy. No biliary ductal dilatation. Spleen: No splenomegaly or focal lesions. Pancreas: No masses or ductal dilatation. Adrenal Glands: No nodules. Kidneys/Ureters: Right parapelvic renal cyst. No solid masses, stones, orhydronephrosis. Bowel: Normal appendix. Normal small bowel and colon. Peritoneum/Retroperitoneum: No masses, pneumoperitoneum, or fluid. Lymph Nodes: No lymphadenopathy. Pelvic Organs/Bladder: No mass. Bones/Soft Tissues: No significant abnormality. L4-5 posterior fusion. IMPRESSION: 1. No aortic dissection or alternative CT explanation for symptoms. 2. Mesenteric vessels are patent without evidence of end-organhypoperfusion. 3. 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 Karen Pena PA-C IMG CT CHEST Final Result * ECG 12-LEAD (06/23/2025 10:06 PM EDT) Ventricular Rate EKG/MIN 74 BPM [facility] Atrial Rate 74 BPM [facility] MI Interval 222 ms [facility] QRS Duration 80 ms [facility] QT Interval 414 ms [facility] QTC Interval 459 ms [facility] P Ware 9 degrees [facility] R Wave [place] -13 degrees [facility] T Wave [place] 10 degrees [facility] 06/23/2025 10:0 6 PM EDT 06/24/2025 11:23 AM EDT Narrative [facility] - 06/24/2025 11:23 AM EDT Sinus rhythm with 1st degree A-V block Inferior infarct (cited on or before 02-Apr-2010) Abnormal ECG When compared with ECG of 23-Jun-2025 15:32, MI interval has increased Vent. rate has decreased by 36 bpm Confirmed by Alex Whiteside ([id number]) on 06/24/2025 11:23:47 AM Karen Pena PA-C ECG ORDERABLES Final Result [facility] * XR CHEST PA AND LATERAL 2 VIEWS (06/23/2025 9:28 PM EDT) Anatomical Region Laterality Modality Chest Computed Radiogr aphy 06/23/2025 10:1 8 PM EDT Impressions 06/23/2025 10:20 PM EDT No acute abnormality. Narrative 06/23/2025 10:20 PM EDT XR CHEST PA AND LATERAL 2 VIEWS Referring clinician's provided indication for this examination in [facility]: Pain COMPARISON: XR CHEST PORTABLE FINDINGS: Devices/Tubes/Lines: None. Lungs: No focal consolidation or pulmonary edema. Pleura: No pleural effusion or pneumothorax. Heart/Mediastinum: Normal heart and mediastinum. Bones/Soft Tissues: No significant abnormality. Procedure Note Jaylene Sarmiento MD - 06/23/2025 XR CHEST PA AND LATERAL 2 VIEWS Referring clinician's provided indication for this examination in [facility]:Pain COMPARISON: XR CHEST PORTABLE FINDINGS: Devices/Tubes/Lines: None. Lungs: No focal consolidation or pulmonary edema. Pleura: No pleural effusion or pneumothorax. Heart/Mediastinum: Normal heart and mediastinum. Bones/Soft Tissues: No significant abnormality. IMPRESSION: No acute abnormality. Karen Pena PA-C IMG XR CHEST Final Result * Troponin (06/23/2025 5:03 PM EDT) Troponin-T, HS Gen5 13 0 - 14 ng/L [facility] Blood 06/23/2025 5:03 PM EDT 06/23/2025 5:25 PM EDT Wilber Davis PA-C LAB BLOOD ORDERABLES Final Res ult [address] [address] * Troponin (06/23/2025 3:58 PM EDT) Troponin-T, HS Gen5 13 0 - 14 ng/L [facility] Blood 06/23/2025 3:58 PM EDT 06/23/2025 4:10 PM EDT Wilber Davis PA-C LAB BLOOD ORDERABLES Final Res ult [address] [address] * (ABNORMAL) Basic metabolic panel (06/23/2025 3:58 PM EDT) SODIUM 138 133 - 146 mmol/L [facility] CHLORIDE 101 96 - 108 mmol/L [facility] POTASSIUM 4.2 3.3 - 5.1 mmol/L [facility] CO2 23 21 - 35 mmol/L [facility] BUN 18 6 - 19 mg/dL [facility] CREATININE 1.10 0.5 - 1.5 mg/dL [facility] GLUCOSE 287(H) 70 - 99 mg/dL [facility] CALCIUM 9.7 8.4 - 10.3 mg/dL [facility] EGFR 70 >59 mL/min/1.7 3m2 [facility] Comment:Estimated glomerular filtration rate calculated using the CKD-EPI refit equation. ANION GAP 18 10 - 20 mmol/L [facility] Blood 06/23/2025 3:58 PM EDT 06/23/2025 4:10 PM EDT Wilber Davis PA-C LAB BLOOD ORDERABLES Final Res ult [address] [address] * (ABNORMAL) CBC and differential (06/23/2025 3:58 PM EDT) WBC 7.37 4.00 - 11.00 K/uL [facility] RBC 3.80(L) 4.50 - 5.90 M/uL [facility] HGB 11.1(L) 13.5 - 17.5 g/dL [facility] HCT 33.6(L) 41.0 - 53.0 % [facility] PLT 225 150 - 450 K/uL [facility] MCV 88.4 80.0 - 100.0 fL [facility] MCH 29.2 27.0 - 31.0 pg [facility] MCHC 33.0 32.0 - 36.0 g/dL [facility] RDW 12.6 11.5 - 14.5 % [facility] MPV 11.0 8.4 - 12.0 fL [facility] NRBC 0.00 0.00 /100 WBCs [facility] ABSOLUTE NRBC 0.00 0.00 K/uL [facility] DIFF METHOD Auto [facility] NEUTS 68.3 48.0 - 76.0 % [facility] LYMPHS 20.2 18.0 - 41.0 % [facility] MONOS 9.5 4.0 - 11.0 % [facility] EOS 1.1 0.0 - 5.0 % [facility] BASOS 0.5 0.0 - 1.5 % [facility] Granulocytes, immature (%) 0.4 0.0 - 0.9 % [facility] ABSOLUTE NEUTS 5.03 1.92 - 7.60 K/uL [facility] ABSOLUTE LYMPHS 1.49 0.72 - 4.10 K/uL [facility] ABSOLUTE MONOS 0.70 0.16 - 1.10 K/uL [facility] ABSOLUTE EOS 0.08 0.00 - 0.50 K/uL [facility] ABSOLUTE BASOS 0.04 0.00 - 0.15 K/uL [facility] Granulocytes, immature 0.03 0.00 - 0.09 K/uL [facility] Blood 06/23/2025 3:58 PM EDT 06/23/2025 4:10 PM EDT Wilber Davis PA-C LAB BLOOD ORDERABLES Final Res ult [facility] [address] [place] [address] * ECG 12-LEAD (06/23/2025 3:32 PM EDT) Ventricular Rate EKG/MIN 110 BPM [facility] Atrial Rate 110 BPM [facility] MI Interval 136 ms [facility] QRS Duration 86 ms [facility] QT Interval 420 ms [facility] QTC Interval 568 ms [facility] R Wave [place] 8 degrees [facility] T Wave [place] 2 degrees [facility] 06/23/2025 3:32 PM EDT 06/24/2025 11:23 AM EDT Narrative [facility] - 06/24/2025 11:23 AM EDT Critical Test Result: Long QTc Sinus tachycardia Inferior infarct (cited on or before 02-Apr-2010) Prolonged QT Abnormal ECG When compared with ECG of 10-Jun-2025 00:08, Aberrant conduction is no longer Present MI interval has decreased Confirmed by Alex Whiteside ([id number]) on 06/24/2025 11:23:45 AM us Peter Levin MD ECG ORDERABLES Final Result [facility] documented in this encounter Visit Diagnoses Diagnosis Chest pain, unspecified type- Primary Celiac artery stenosis Stricture of artery documented in this encounter Administered Medications Inactive Administered Medications - up to 3 most recent administrations Medication Order MAR Action Action Date Dose Rate Site acetaminophen (TYLENOL) tablet 975 mg 975 mg, Oral, Once, On Thu06/23/25 at 2345, For 1 dose Given 06/23/2025 11:52 PM EDT 975 mg aluminum-magnesium hydroxide-simethicone (MAALOX) 200-200-20 mg/5 mL oral suspension 30 mL 30 mL, Oral, Once, On 06/24/25 at 0045, For 1 dose, Shake Well Given 06/24/2025 1:01 AM EDT 30 mL iohexoL (OMNIPAQUE-350) 350 mg iodine/mL solution 100 mL 100 mL, Intravenous, Once as needed, pre procedure/treatment, Starting on Thu06/23/25 at 2243, For 1 dose, Procedural Contrast/Med Active Now, Each mL contains 755 mg of iohexol equivalent to 350 mg of organic iodine. Given 06/23/2025 10:43 PM EDT 100 mL lidocaine 2 % oral solution 15 mL 15 mL, Mouth/Throat, Once, On 06/24/25 at 0045, For 1 dose Given 06/24/2025 1:02 AM EDT 15 mL sodium chloride (NS) 0.9 % syringe flush 3 mL 3 mL, Intravenous, As needed, line care, Starting on Thu06/23/25 at 1536, Per Institutional IV Line Care Policy. documented in this encounter Active and Recently Administered Medications Times are shown in EDT. Scheduled Medication Order 06/22/2025 06/23/2025 06/24/2025 acetaminophen (TYLENOL) tablet 975 mg (COMPLETED) 975 mg, Oral, Once, On Thu06/23/25 at 2345, For 1 dose 2352 (Given - Provider: Estrella Bello RN) aluminum-magnesium hydroxide-simethicone (MAALOX) 200-200-20 mg/5 mL oral suspension 30 mL (COMPLETED) 30 mL, Oral, Once, On 06/24/25 at 0045, For 1 dose, Shake Well 0101 (Given - Provid er: Estrella Bello RN) lidocaine 2 % oral solution 15 mL (COMPLETED) 15 mL, Mouth/Throat, Once, On 06/24/25 at 0045, For 1 dose 0102 (Given - Provid er: Estrella Bello RN) PRN Medication Order 06/22/2025 06/23/2025 06/24/2025 iohexoL (OMNIPAQUE-350) 350 mg iodine/mL solution 100 mL (COMPLETED) 100 mL, Intravenous, Once as needed, pre procedure/treatment, Starting on Thu06/23/25 at 2243, For 1 dose, Procedural Contrast/Med Active Now, Each mL contains 755 mg of iohexol equivalent to 350 mg of organic iodine. 2243 (Given - Provider: Gilmar Raygoza) sodium chloride (NS) 0.9 % syringe flush 3 mL 3 mL, Intravenous, As needed, line care, Starting on Thu06/23/25 at 1536, Per Institutional IV Line Care Policy. documented in this encounter Additional Health Concerns Assessment Noted Time PHQ-9 Depression Total Score: 8 09/02/20 22 9:53 AM EST documented as of this encounter Care Teams Lining Layer Relationship Specialty Start Date End Date Fredrick Barkley DO [address] [place] [phone] [email or web address] PCP - General Internal Medicine 05/05/25 Manpreet Huber MD [address] [place] [phone] [email or web address] Intensive Care 02/24/19 Alfonzo Luis DO [address] [place] [phone] [email or web address] Primary Oncologist Hematology and Oncology 09/03/20 Mary Willard FNP [address] [place] [phone] [email or web address] Registered Nurse Nurse Practitioner 12/01/24 documented as of this encounter Additional Source Comments The information contained in this document represents components of the legal health record. It is not the complete legal health record.[facility]
[2025-06-28 18:53] LABS: Hemoglobin A1C 176.8065 umol/L; Total Hemoglobin (HGBA1C) 2916.9904 umol/L
--- OUTSIDE RECORDS SUMMARY | 2025-06-28 18:56 | XMS_ITS | Encounter Summary ---
Author Organization [facility] Address [address] [place] [address] [place] [phone] Phone Care Team Providers Care [employer] Weapon System Operator Name Role Phone Fredrick Barkley DO Primary Care Provider [phone] Manpreet Huber MD Unavailable [phone] Alfonzo Luis DO Unavailable [phone] Mary Willard CORN GROWER Unavailable [phone] Aysha Clark COGNOS ANALYST Unavailable [phone] Fredrick Barkley DO Primary Care Provider [phone] Encounter Details Date Type Department Care Team (Late st Contact Info) Description 05/14/2020 Procedure Pass [facility], Ct Scan - [address] [address] Social History Tobacco Use Types Packs/Day Years Used Date Smoking Tobacco: Never Smokeless Tobacco: Never Alcohol Use Standard Drinks/Week Comments No 0 (1 standard drink = 0.6 oz pure alcohol) prior abuse, reports none since 2010 Sex and Gender Information Value Date Recorded Sex Assigned at Male 04/12/2018 10:53 AM EDT Legal Sex Male 5:57 PM EST Gender Identity Male 04/12/2018 10:53 AM EDT Sexual Orientation Straight 10/19/2017 9: 43 AM EST Occupation Industry Job Start Date Job End Date retired, worked 34 yrs at [employer] Not on file Not on file Not on file documented as of this encounter Plan of Treatment Upcoming Encounters Date Type Department Care Team (Late st Contact Info) Description 06/23/2025 Procedure Pass Event Monitor [address] [place] [address] 07/12/2025 8:30 AM EDT Appointment Non-Invasive Cardiology [address] [place] [place] [address] Gene Oreilly, ELENI [address] [place] [phone] 07/21/2025 9:15 AM EDT Appointment Event Monitor [address] [place] [address] Gene Oreilly, SEED CLEANING MACHINE OPERATOR [address] [place] [phone] 09/05/2025 9:30 AM EST Office [place] [facility] [place], Allergy and Critical Care Medicine [address] [place] [address] [place] [address] Manpreet Huber MD [address] 2nd [place] [address] 09/25/2025 11:00 AM EST Office Visit [facility] [address] Floor, [address] [place] [address] Gene Oreilly, EELNI [address] [place] [phone] documented as of this encounter Goals Goal [...] increase respiratory distress. Psychosocial updates include: early skilled nursing, loss of financial stability, psychological and physical limitations, and most recently separation and planned divorce Current Homecare: Patient is followed by [facility] [employer] Processing Worker Nancy who is working to connect patient with home COGNOS ANALYST and BH services. On Arrival to ED: [...] from ED: Send Case Management Consult in [facility] to follow up that homecare services are in place and if additional services are needed this can then be coordinated If patient is to be admitted to Hospital: Consult should be made for BH and SW services upon admission [facility] and Psychosocial Considerations: Anxiety and Depression and recent separation and pending divorce Issues/Plan: Lack of connection to therapist in the community. Plan SW to connect with TIMBER REPAIRER to determine if appointment has been made for outpatient mental health follow up and patient assigned a therapist. also will work with Clary MOSLEY to [...] 04/27/2019 with Ute alcantar CM , Ava Bland PA, Romana Bernardo SW, Kelsie Musa CM documented as of this encounter Visit Diagnoses Not on filedocumented in this encounter Additional Health Concerns Infection Onset Date Last Indicated Resolved Time CoV-Risk 05/14/2020 05/16/2020 05/30/2020 1:23 AM EDT CoV-Risk 06/11/2022 06/11/2022 06/22/2022 1:22 AM EDT CoV-Risk 06/04/2024 06/04/2024 06/15/2024 1:21 AM EDT [facility] Comment:Per note documentation 05/13/2025 05/13/2025 11:51 PM EDT documented as of this encounter Care Teams [employer] We[employer] System Operator Relationship Specialty Start Date End Date Fredrick Barkley DO [email or web address] PCP - General Internal Medicine 08/17/17 05/04/25 Fredrick Barkley DO [address] [place] [address] [email or web address] PCP - General Internal Medicine 05/05/25 Manpreet Huber MD [address] [place] [phone] [email or web address] Intensive Care 02/24/19 Alfonzo Luis DO [address] [place] [address] [email or web address] Primary Oncologist Hematology and Oncology 09/03/20 Mary Willard FNP [address] [place] [address] Registered Nurse Nurse Practitioner 12/01/24 Aysha Clark NP [address] [place], [place] [id number] [email or web address] Nurse Practitioner Nurse Practitioner 12/14/24 12/22/24 documented as of this encounter Additional Source Comments The information contained in this document represents components of the legal health record. It is not the complete legal health record.[facility]
--- OUTSIDE RECORDS SUMMARY | 2025-06-28 18:56 | XMS_ITS | Encounter Summary ---
Author Organization [facility] Address [address] [facility] [address] [place] [address] Phone Care Team Providers Care P D Driver Name Role Phone Fredrick Barkley DO Primary Care Provider [phone] Master Huber MD Unavailable [phone] Alfonzo Luis DO Unavailable [phone] Mary Willard ENGRAVING OPERATOR Unavailable [phone] Aysha Clark AVIONICS TECHNICIAN Unavailable [phone] Fredrick Barkley DO Primary Care Provider [phone] Reason for Referral * MRI/CAT Scan - Closed Specialty Diagnoses / Procedures Referred By Tina coles Referred To Contact Radiology Diagnoses Malignant neoplasm of prostate Procedures CT Pelvis Ary Martin PA Phone: tel: fax: [email or web address] Referral ID Status Reason Start Date Expiration Date Visits Re quested Visits Authorized [id number] Closed 01/24/2019 01/24/2020 1 1 Encounter Details Date Type Department Care Team (Latest Contact Info) Description 01/24/2019 Transcribe Orders [facility] Department [address] [place] [address] Ary Martin PA [address] [place] [address] [email or web address] Malignant neoplasm of prostate (Primary Dx) Social History Tobacco Use Types Packs/Day Years [...] End Date retired, worked 34 yrs at [employer] Not on file Not on file Not on file documented as of this encounter Plan of Treatment Upcoming Encounters Date Type Department Care Team (Late st Contact Info) Description 06/23/2025 Procedure Pass Event Monitor [address] [place] [address] 07/12/2025 8:30 AM EDT Appointment Non-Invasive Cardiology [address] [place] [address] Gene Oreilly, CLOTH BOIL OFF MACHINE OPERATOR [address] [place] [address] 07/21/2025 9:15 AM EDT Appointment Event Monitor [address] [place] [address] eGne Oreilly, CLOTH BOIL OFF MACHINE OPERATOR [address] [place] [address] 09/05/2025 9:30 AM EST Office Visit [facility] 10 [facility] [place] [address] Master Huber MD 10 [facility] 2nd [place] [address] 09/25/2025 11:00 AM EST Office Visit [facility] [address] 3rd Floor, [address] [place] [address] Gene Oreilly, CLOTH BOIL OFF MACHINE OPERATOR [address] [place] [address] [email or web address] documented as of this encounter Results * CT PELVIS WITH CONTRAST (02/07/2019 9:57 AM EDT) Anatomical Region Laterality Modality Pelvis Computed Tomogra phy 02/07/2019 10:2 0 AM EDT Impressions 02/07/2019 10:26 AM EDT No lymphadenopathy, metastatic deposits, or other significant interval change from 04/25/2017 apparent. TOTAL CTDIvol: 16.80 mGy POS [id number] Narrative 02/07/2019 10:26 AM EDT COMPARISON: 04/25/2017 CT TECHNIQUE: Helical scanning was performed from the iliac crests through the pubic symphysis following oral and intravenous administration of contrast material. Sagittal and coronal reformats were generated and reviewed. Automated exposure control was utilized. FINDINGS: Prostate bed is stable in appearance with radiation seeds again noted. No pelvic sidewall mass, inguinal, or iliac chain lymphadenopathy have developed in the interim. No free fluid collections are noted. Appendix and visualized bowel are unremarkable. Bladder is relatively collapsed. No abdominal wall hernia noted. No iliac aneurysm. Stable post-fusion changes are present at the L4-5 level. No traumatic or destructive bony lesions have developed. Chronic presumed post-surgical cystic changes are present in the medial iliac bones. Automated exposure control utilized. Procedure Note Master Delgado MD - 02/07/2019 COMPARISON: 04/25/2017 CT TECHNIQUE: Helical scanning was performed from the iliac crests throughthe pubic symphysis following oral and intravenous administration ofcontrast material. Sagittal and coronal reformats were generated andreviewed. Automated exposure control was utilized. FINDINGS: Prostate bed is stable in appearance with radiation seeds again noted. Nopelvic sidewall mass, inguinal, or iliac chain lymphadenopathy havedeveloped in the interim. No free fluid collections are noted. Appendixand visualized bowel are unremarkable. Bladder is relatively collapsed.No abdominal wall hernia noted. No iliac aneurysm. Stable post-fusionchanges are present at the L4-5 level. No traumatic or destructive bonylesions have developed. Chronic presumed post-surgical cystic changes arepresent in the medial iliac bones. Automated exposure control utilized. IMPRESSION: No lymphadenopathy, metastatic deposits, or other significant intervalchange from 04/25/2017 apparent. TOTAL CTDIvol: 16.80 mGy POS [id number] Ary GARCIA IMG CT XSPECIALTY ORDERABL ES Final Result documented in this encounter Visit Diagnoses Diagnosis Malignant neoplasm of prostate- Primary Malignant neoplasm of prostate documented in this encounter Additional Health Concerns Infection Onset Date Last Indicated Resolved Time CoV-Risk 05/14/2020 05/16/2020 05/30/2020 1:23 AM EDT CoV-Risk 06/11/2022 06/11/2022 06/22/2022 1:22 AM EDT CoV-Risk 06/04/2024 06/04/2024 06/15/2024 1:21 AM EDT CoV-Risk Comment:Per note documentation 05/13/2025 05/13/2025 11:51 PM EDT documented as of this encounter Care Teams P D Driver Relationship Specialty Start Date End Date Fredrick Barkley DO PCP - General Internal Medicine 08/17/17 05/04/25 Fredrick Barkley DO [address] [facility] [place] [address] PCP - General Internal Medicine 05/05/25 Master Huber MD [address] [place] [address] Intensive Care 02/24/19 Alfonzo Luis DO 30 [place] [address] [email or web address] Primary Oncologist Hematology and Oncology 09/03/20 Mary Willard FNP [address] [place] [address] [email or web address] Registered Nurse Nurse Practitioner 12/01/24 Aysha Clark NP [address] [place] [address] [email or web address] Nurse Practitioner Nurse Practitioner 12/14/24 12/22/24 documented as of this encounter Additional Source Comments The information contained in this document represents components of the legal health record. It is not the complete legal health record.[facility]
--- OUTSIDE RECORDS SUMMARY | 2025-06-28 18:56 | XMS_ITS | Encounter Summary ---
Author Organization [facility] Address [address] [facility] [address] [place] [address] Phone Care Team Providers Care Electrician Radio Name Role Phone Fredrick Barlkey DO Primary Care Provider [phone] Manpreet Huber MD Unavailable [phone] Alfonzo Luis DO Unavailable [phone] Mary Willard FIRE DEPARTMENT MARINE ENGINEER Unavailable [phone] Aysha Clark MMA FIGHTER Unavailable [phone] Fredrick Barkley DO Primary Care Provider [phone] Encounter Details Date Type Department Care Team (Late st Contact Info) Description 02/02/2021 Procedure Pass [facility], Ct Scan - [address] [address] Social History Tobacco Use Types Packs/Day Years Used Date Smoking Tobacco: Never Smokeless Tobacco: Never Alcohol Use Standard Drinks/Week Comments Not Currently 6 (1 standard drink = 0.6 oz pur e alcohol) 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 Sex and Gender Information Value Date Recorded Sex Assigned at Male 04/12/2018 10:53 AM EDT Legal Sex Male 5:57 PM EST Gender Identity Male 04/12/2018 10:53 AM EDT Sexual Orientation Straight 10/19/2017 9: 43 AM EST Occupation Industry Job Start Date Job End Date retired, worked 34 yrs at [employer] Not on file Not on file Not on file documented as of this encounter Functional Status * Calculated C-SSRS Risk Score (Lifetime/Recent) Answer Date of Assessment Author No Risk Indicated 02/02/2021 3:48 AM EDT Adeline Abarca, MARCELINA * [place] Suicide Severity Rating Scale (Screener/Recent Self-Report) Question Answer Date of Assessment Author 1. Wish to be (Past 1 Month) No 021 3:48 AM EDT Adeline Bryan, MARCELINA 2. Non-Specific Active Suici bryson Thoughts (Past 1 Month) No 02/02/2021 3:48 AM EDT Reggie Bryan, MARCELINA 6. Suicidal Behavior (Lifetime) No 3:48 AM EDT Adeline Bryan, MARCELINA documented as of this encounter Plan of Treatment Upcoming Encounters Date Type Department Care Team (Late st Contact Info) Description 06/23/2025 Procedure Pass Event Monitor [address] [place] [address] 07/12/2025 8:30 AM EDT Appointment Non-Invasive Cardiology [address] [place] [address] Gene Oreilly, LABORER/GRADE CHECK [address] [place] [address] 07/21/2025 9:15 AM EDT Appointment Event Monitor [address] [place] [address] Gene Oreilly, LABORER/GRADE CHECK [address] [place] [address] 09/05/2025 9:30 AM EST Office Visit [facility] Critical [facility] 10 [place] [address] Manpreet Huber MD [address] [address] 09/25/2025 11:00 AM EST Office Visit [facility] [address] Floor, [address] [place] [address] Gene Oreilly, LABORER/GRADE CHECK [address] [place] [address] [email or web address] documented as of this encounter Goals Goal [...] increase respiratory distress. Psychosocial updates include: early [place] [facility], loss of financial stability, psychological and physical limitations, and most recently separation and planned divorce Current Homecare: Patient is followed by [facility] [employer] [place] Pilot Nancy who is working to connect patient with home MMA FIGHTER and BH services. On Arrival to ED: [...] from ED: Send Case Management Consult in [facility] to follow up that homecare services are [...] the community. Plan SW to connect with COMBINE INSPECTOR to determine if appointment has been made [...] Onset Date Last Indicated Resolved Time CoV-Risk 06/11/2022 06/11/2022 06/22/2022 1:22 AM EDT CoV-Risk 06/04/2024 06/04/2024 06/15/2024 1:21 AM EDT CoV-Risk Comment:Per note documentation 05/13/2025 05/13/2025 11:51 PM EDT documented as of this encounter Care Teams Electrician Radio Relationship Specialty Start Date End Date Fredrick Barkley DO PCP - General Internal Medicine 08/17/17 05/04/25 Fredrick Barkley DO [address] [place] [address] PCP - General Internal Medicine 05/05/25 Manpreet Huber MD [address] [place] [address] [email or web address] Intensive Care 02/24/19 Alfonzo Luis DO [address] [place] [address] [email or web address] Primary Oncologist Hematology and Oncology 09/03/20 Mary Willard FNP [address] [place] [address] [email or web address] Registered Nurse Nurse Practitioner 12/01/24 Aysha Clark NP [address] [place] [address] [email or web address] Nurse Practitioner Nurse Practitioner 12/14/24 12/22/24 documented as of this encounter Additional Source Comments The information contained in this document represents components of the legal health record. It is not the complete legal health record.[facility]
--- OUTSIDE RECORDS SUMMARY | 2025-06-28 18:56 | XMS_ITS | Encounter Summary ---
Author Organization [facility] Address [address] [facility] [address] [place] [address] Phone Care Team Providers Care Video Game Designer Name Role Phone Fredrick Barkley DO Primary Care Provider [phone] Manpreet Huber MD Unavailable [phone] Alfonzo Luis DO Unavailable [phone] Mary Willard DISABILITY BENEFITS SPECIALIST Unavailable [phone] Aysha Clark TREATING MACHINE OPERATOR Unavailable [phone] Fredrick Barkley DO Primary Care Provider [phone] Encounter Details Date Type Department Care Team (Late st Contact Info) Description 01/28/2022 Procedure Pass [facility], Ct Scan - [address] [address] Social History Tobacco Use Types Packs/Day Years [...] End Date retired, worked 34 yrs at [employer] Not on file Not on file Not on file documented as of this encounter Functional Status * Calculated C-SSRS Risk Score (Lifetime/Recent) Answer Date of Assessment Author No Risk Indicated 01/28/2022 10:13 PM EDT Mary Pimentel RN * [place] Suicide Severity Rating Scale (Screener/Recent Self-Report) Question Answer Date of Assessment Author 1. Wish to be (Past 1 Month) No 022 10:13 PM EDT Mary Mccloud, MARCELINA 2. Non-Specific Active Suici bryson Thoughts (Past 1 Month) No 01/28/2022 10:13 PM EDT Sa christian Mccloud RN 6. Suicidal Behavior (Lifetime) No 10:13 PM EDT Mary Mccloud RN documented as of this encounter Plan of Treatment Upcoming Encounters Date Type Department Care Team (Late st Contact Info) Description 06/23/2025 Procedure Pass Event Monitor [address] [place] [address] 07/12/2025 8:30 AM EDT Appointment Non-Invasive Cardiology [address] [place] [address] Gene Oreilly, PLANT WRAPPER [address] [place] [address] 07/21/2025 9:15 AM EDT Appointment Event Monitor [address] [place] [address] Gene Oreilly, PLANT WRAPPER [address] [place] [address] 09/05/2025 9:30 AM EST Office Visit [facility], Allergy and Critical Care Medicine 10 [facility] [place] [address] Manpreet Huber MD 10 [facility] 2nd [place] [address] 09/25/2025 11:00 AM EST Office Visit [facility] [address] Floor, [address] [place] [address] Gene Oreilly, PLANT WRAPPER 50 [place] [address] [email or web address] documented as of this encounter Goals [...] increase respiratory distress. Psychosocial updates include: early nursing home, loss of financial stability, psychological and physical limitations, and most recently separation and planned divorce Current Homecare: Patient is followed by [facility] Insurance Railroad Worker Nancy who is working to connect patient with home TREATING MACHINE OPERATOR and BH services. On Arrival to ED: [...] Send Case Management Consult in [facility] to follow up that homecare services are [...] the community. Plan SW to connect with CHOIR SINGER to determine if appointment has been made [...] Ute alcantar CM , Ava GARCIA, Romana Bernardo SW, Kelsie Musa CM documented as of this encounter Visit Diagnoses Not on filedocumented in this encounter Additional Health Concerns Infection Onset Date Last Indicated Resolved Time CoV-Risk 06/11/2022 06/11/2022 06/22/2022 1:22 AM EDT CoV-Risk 06/04/2024 06/04/2024 06/15/2024 1:21 AM EDT CoV-Risk Comment:Per note documentation 05/13/2025 05/13/2025 11:51 PM EDT documented as of this encounter Care Teams Video Game Designer Relationship Specialty Start Date End Date Fredrick Barkley DO [email or web address] PCP - General Internal Medicine 08/17/17 05/04/25 Fredrick Barkley DO [address] [place] [address] PCP - General Internal Medicine 05/05/25 Manpreet Huber MD [address] [place] [address] [email or web address] Intensive Care 02/24/19 Alfonzo Luis DO [address] [place] [address] [email or web address] Primary Oncologist Hematology and Oncology 09/03/20 Mary Willard FNP [address] [place] [address] [email or web address] Registered Nurse Nurse Practitioner 12/01/24 Aysha Calrk NP [address] [place] [address] [email or web address] Nurse Practitioner Nurse Practitioner 12/14/24 12/22/24 documented as of this encounter Additional Source Comments The information contained in this document represents components of the legal health record. It is not the complete legal health record.[facility]
--- OUTSIDE RECORDS SUMMARY | 2025-06-28 18:56 | XMS_ITS | Encounter Summary ---
Author Organization [facility] Address [address] [facility] [address] [place] [address] Phone Care Team Providers Care Director Investor Relations Name Role Phone Fredrick Barkley DO Primary Care Provider [phone] Manpreet Huber MD Unavailable [phone] [email or web address] Luis DO Unavailable [phone] Mary Willard STAFF CONSULTANT Unavailable [phone] OPERATOR Unavailable [phone] Fredrick Barkley DO Primary Care Provider [phone] Encounter Details Date Type Department Care Team (Late st Contact Info) Description 09/27/2021 Procedure Pass [facility], Ct Scan - [address] [address] Social History Tobacco Use Types Packs/Day Years [...] End Date retired, worked 34 yrs at [employer] Not on file Not on file Not on file documented as of this encounter Plan of Treatment Upcoming Encounters Date Type Department Care Team (Late st Contact Info) Description 06/23/2025 Procedure Pass Event Monitor [address] [place] [address] 07/12/2025 8:30 AM EDT Appointment Non-Invasive Cardiology [address] [place] [address] Gene Oreilly, ELENI [address] [place] [address] [email or web address] 07/21/2025 9:15 AM EDT Appointment Event Monitor [address] [place] [address] Gene Oreilly, VETERINARY LABORATORY DIAGNOSTICIAN [address] [place] [address] [email or web address] 09/05/2025 9:30 AM EST Office Visit [facility] Pulmonary, Allergy and Critical Care Medicine 10 [facility] [place] [address] Manpreet Huber MD 10 [facility] 2nd [place] [address] 09/25/2025 11:00 AM EST Office Visit [facility] [address] [facility] 3rd Floor, [address] [place] [address] Gene Oreilly, ELENI [address] [place] [address] documented as of this encounter Goals Goal [...] divorce Current Homecare: Patient is followed by [facility] Insurance Imaging Account Manager Nancy who is working to connect patient with home CABLE WAY OPERATOR and BH services. On Arrival to [...] from ED: Send Case Management Consult in [facility] to follow up that homecare services [...] the community. Plan SW to connect with PHOTOCOMPOSING KEYBOARD OPERATOR to determine if appointment has been [...] documented as of this encounter Care Teams Director Investor Relations Relationship Specialty Start Date End Date Fredrick Barkley DO [email or web address] PCP - General Internal Medicine 08/17/17 05/04/25 Fredrick Barkley DO [address] [place] [address] [email or web address] PCP - General Internal Medicine 05/05/25 Manpreet Huber MD [address] [place] [address] [email or web address] Intensive Care 02/24/19 Alfonzo Luis DO 30 [place] [address] [email or web address] Primary Oncologist Hematology and Oncology 09/03/20 Mary Willard FNP [address] [place] [address] [email or web address] Registered Nurse Nurse Practitioner 12/01/24 Aysha Clark, CABLE WAY OPERATOR [address] [place] [address] [email or web address] Nurse Practitioner Nurse Practitioner 12/14/24 12/22/24 documented as of this encounter Additional Source Comments The information contained in this document represents components of the legal health record. It is not the complete legal health record.[facility]
--- OUTSIDE RECORDS SUMMARY | 2025-06-28 18:56 | XMS_ITS | Encounter Summary ---
Author Organization [facility] Address [address] [place] [address] Phone Care Team Providers Care Ceramic Tile Installation Helper Name Role Phone Fredrick Barkley DO Primary Care Provider [phone] Manpreet Huber MD Unavailable [phone] Alfonzo Luis DO Unavailable [phone] Mary Willard PRIMARY OPERATOR Unavailable [phone] Aysha Clark NP Unavailable [phone] Fredrick Barkley DO Primary Care Provider [phone] Encounter Details Date Type Department Care Team (Latest Contact Info) Description 06/11/2020 Transcribe Orders [facility] Laboratory [address] [place] [address] Alfonzo Luis DO [address] [place] [address] [email or web address] Prostate cancer (Primary Dx) Social History Tobacco Use Types [...] End Date retired, worked 34 yrs at [employer] Not on file Not on file Not on file documented as of this encounter Plan of Treatment Upcoming Encounters Date Type Department Care Team (Late st Contact Info) Description 06/23/2025 Procedure Pass Event Monitor [address] [place] [address] 07/12/2025 8:30 AM EDT Appointment Non-Invasive Cardiology [address] [place] [address] Gene Oreilly, CARD GRINDER HELPER [address] [place] [address] 07/21/2025 9:15 AM EDT Appointment Event Monitor [address] [place] [address] Gene Oreilly, CARD GRINDER HELPER [address] [place] [address] 09/05/2025 9:30 AM EST Office Visit [facility], Allergy and Critical Care Medicine [address] [facility] [place] [address] Manpreet Huber MD [address] [facility] 2nd [place] [address] 09/25/2025 11:00 AM EST Office Visit [facility] [address], [address] [place] [address] Gene Oreilly, CARD GRINDER HELPER [address] [place] [address] documented as of this encounter Goals Goal Patient Goal Type Associated Problems Recent Progress Patient-Stated? Author Acute Care Plan Acute Care Plan Cheli Pal, MARCELINA Note: Current Management Plans: Clinical: Jesus is [...] increase respiratory distress. Psychosocial updates include: early half-way, loss of financial stability, psychological and physical limitations, and most recently separation and planned divorce Current Homecare: Patient is followed by [facility] Insurance Ocular Care Technologist Nancy who is working to connect patient with home COMMUNITY OUTREACH MANAGER and BH services. On Arrival to ED: [...] from ED: Send Case Management Consult in [facility] to follow up that [...] the community. Plan SW to connect with PERMIT COORDINATOR to determine if appointment has been made for outpatient mental health follow up and patient assigned a therapist. also will work with Clary MOSLEY to connect patient to SW/ home services. SW will also discuss the [...] Musa CM documented as of this encounter Results * PSA (screening) (06/11/2020 12:06 PM EDT) PSA 2.18 0 - 4.00 ng/mL [facility] Blood 06/11/2020 12:0 6 PM EDT 06/11/2020 12:10 PM EDT us Alfonzo Luis DO LAB BLOOD ORDERABLES Final Result Performing Organization Address City/State/[facility] Co de Phone Number [address] [address] documented in this encounter Visit Diagnoses Diagnosis Prostate cancer- Primary Malignant neoplasm of prostate documented in this encounter Additional Health Concerns Infection Onset Date Last Indicated Resolved Time CoV-Risk 06/11/2022 06/11/2022 06/22/2022 1:22 AM EDT CoV-Risk 06/04/2024 06/04/2024 06/15/2024 1:21 AM EDT CoV-Risk Comment:Per note documentation 05/13/2025 05/13/2025 11:51 PM EDT documented as of this encounter Care Teams Ceramic Tile Installation Helper Relationship Specialty Start Date End Date Fredrick Barkley DO PCP - General Internal Medicine 08/17/17 05/04/25 Fredrick Barkley DO [address] [place] [address] PCP - General Internal Medicine 05/05/25 Manpreet Huber MD [address] [place] [address] [email or web address] Intensive Care 02/24/19 Alfonzo Luis DO [address] [place] [address] [email or web address] Primary Oncologist Hematology and Oncology 09/03/20 Mary Willard FNP [address] [place] [address] [email or web address] Registered Nurse Nurse Practitioner 12/01/24 Aysha Clark NP [address] [place] [address] [email or web address] Nurse Practitioner Nurse Practitioner 12/14/24 12/22/24 documented as of this encounter Additional Source Comments The information contained in this document represents components of the legal health record. It is not the complete legal health record.[facility]
--- OUTSIDE RECORDS SUMMARY | 2025-06-28 18:56 | XMS_ITS | Encounter Summary ---
Author Organization [facility] Address [address] [facility] [address] [place] [address] Phone Care Team Providers Care Diamond Polisher Name Role Phone Fredrick Barkley DO Primary Care Provider [phone] Manpreet Huber MD Unavailable [phone] Alfonzo Luis DO Unavailable [phone] Mary Willard PRINTING PRESSMAN Unavailable [phone] Aysha Clark TRAINING SPECIALIST Unavailable [phone] Fredrick Barkley DO Primary Care Provider + Encounter Details Date Type Department Care Team (Late st Contact Info) Description 06/24/2024 Procedure Pass Echo Lab [address] [place], [place] [id number] Social History Tobacco Use Types Packs/Day Years Used Date Smoking Tobacco: Never Smokeless Tobacco: Never Alcohol Use Standard Drinks/Week Comments Yes 0 (1 standard drink = 0.6 oz pur e alcohol) Occ Education Answer Date Recorded Are you interested in more education? Not on carlos alberto e 02/05/2023 Are you concerned about learning? Not on file 02/05/2023 No 02/05/2023 No 02/05/2023 Digital Access Answer Date Recorded No 03/08/2023 No 03/08/2023 Reliable internet access at home? Not on file 03/08/2023 Device with a working camera? Not on file Sex and Gender Information Value Date Recorded Sex Assigned at Male 04/12/2018 10:53 AM EDT Legal Sex Male 5:57 PM EST Gender Identity Male 04/12/2018 10:53 AM EDT Sexual Orientation Straight 10/19/2017 9: 43 AM EST Occupation Industry Job Start Date Job End Date retired, worked 34 yrs at [employer] Not on file Not on file Not on file documented as of this encounter Plan of Treatment Upcoming Encounters Date Type Department Care Team (Late st Contact Info) Description 06/23/2025 Procedure Pass Event Monitor [address] [place] [address] 07/12/2025 8:30 AM EDT Appointment Non-Invasive Cardiology [address] [place] [address] Gene Oreilly, CRUSHING MILL OPERATOR [address] [place] [address] 07/21/2025 9:15 AM EDT Appointment Event Monitor [address] [place] [address] Gene Oreilly, CRUSHING MILL OPERATOR [address] [place] [address] 09/05/2025 9:30 AM EST Office Visit [facility] Pulmonary, Allergy and Critical Care Medicine [address] [facility] [place] [address] Manpreet Huber MD [address] [facility] 2nd [place] [address] 09/25/2025 11:00 AM EST Office Visit [facility] [address], [address] [place] [address] Gene Oreilly, CRUSHING MILL OPERATOR [address] [place] [address] documented as of this encounter Goals Goal Patient Goal Type Associated Problems Recent Progress Patient-Stated? Author Acute Care Plan Acute Care Plan No Busby, Cheli, RN Note: Current Management Plans: Clinical: Jesus [...] increase respiratory distress. Psychosocial updates include: early residential, loss of financial stability, psychological and physical limitations, and most recently separation and planned divorce Current Homecare: Patient is followed by [facility] Insurance Electric Trucker Nancy who is working to connect patient with home TRAINING SPECIALIST and services. On Arrival to ED: When [...] ED: Send Case Management Consult in [facility] to follow up that homecare services are [...] the community. Plan SW to connect with [facility] to determine if appointment has been made [...] Onset Date Last Indicated Resolved Time CoV-Risk Comment:Per note documentation 05/13/2025 05/13/2025 11:51 PM EDT Assessment Noted Time PHQ-9 Depression Total Score: 8 09/02/20 22 9:53 AM EST documented as of this encounter Care Teams Diamond Polisher Relationship Specialty Start Date End Date Fredrick Barkley DO [email or web address] PCP - General Internal Medicine 08/17/17 05/04/25 Fredrick Barkley DO [address] [place] [address] [email or web address] PCP - General Internal Medicine 05/05/25 Manpreet Huber MD [address] [place] [address] [email or web address] Intensive Care 02/24/19 Alfonzo Luis DO [address] [place] [address] [email or web address] Primary Oncologist Hematology and Oncology 09/03/20 Mary Willard FNP 30 [place] [address] [email or web address] Registered Nurse Nurse Practitioner 12/01/24 Aysha Clark NP [address] [place] [address] [email or web address] Nurse Practitioner Nurse Practitioner 12/14/24 12/22/24 documented as of this encounter Additional Source Comments The information contained in this document represents components of the legal health record. It is not the complete legal health record.[facility]
--- OUTSIDE RECORDS SUMMARY | 2025-06-28 18:56 | XMS_ITS | Encounter Summary ---
Author Organization [facility] Address [address] [facility] [address] [place] [address] Phone Care Team Providers Care Musical String Maker Name Role Phone Fredrick Barkley DO Primary Care Provider [phone] Manpreet Huber MD Unavailable [phone] Alfonzo Luis DO Unavailable [phone] Mary Willard INTERNAL COMMUNICATIONS INTERN Unavailable [phone] Aysha Clark PATIENT REGISTRATION CLERK Unavailable [phone] Fredrick Barkley DO Primary Care Provider + Encounter Details Date Type Department Care Team (Late st Contact Info) Description 06/04/2024 Procedure Pass [facility], Ct Scan - [address] [address] Social History Tobacco Use Types Packs/Day Years [...] End Date retired, worked 34 yrs at [employer] Not on file Not on file Not on file documented as of this encounter Functional Status * Calculated C-SSRS Risk Score (Lifetime/Recent) Answer Date of Assessment Author No Risk Indicated 06/04/2024 12:59 PM EDT Molly Epstein RN * [place] Suicide Severity Rating Scale (Screener/Recent Self-Report) Question Answer Date of Assessment Author 1. Wish to be (Past 1 Month) No 06/04/2024 12:59 PM EDT Jennifer Bunn, MARCELINA 2. Non-Specific Active Suicidal Thoughts (Past 1 Month) No 06/04/2024 12:59 PM EDT Jennifer Bunn, MARCELINA 6. Suicidal Behavior (Lifetime) No 06/04/2024 12:59 PM EDT Jennifer Bunn RN documented as of this encounter Plan of Treatment Upcoming Encounters Date Type Department Care Team (Late st Contact Info) Description 06/23/2025 Procedure Pass Event Monitor [address] [place] [address] 07/12/2025 8:30 AM EDT Appointment Non-Invasive Cardiology [address] [place] [address] Gene Oreilly, TELEPHONE CLERK [address] [place] [address] 07/21/2025 9:15 AM EDT Appointment Event Monitor [address] [place] [address] Gene Oreilly, ELENI [address] [place] [address] 09/05/2025 9:30 AM EST Office Visit [facility] Pulmonary, Allergy and Critical Care Medicine [address] [place] [address], [place] [address] Manpreet Huber MD [address] [facility] [address] [facility] [address] 2nd [place] [address] [email or web address] 09/25/2025 11:00 AM EST Office Visit [facility] [address] [facility] [address] [place] [address] Gene Oreilly, TELEPHONE CLERK [address] [place] [address] [email or web address] documented as of this encounter Goals Goal [...] increase respiratory distress. Psychosocial updates include: early correction, loss of financial stability, psychological and physical limitations, and most recently separation and planned divorce Current Homecare: Patient is followed by [facility] Insurance Professor Of Food Biochemistry Nancy who is working to connect patient with home PATIENT REGISTRATION CLERK and BH services. On Arrival to [...] the community. Plan SW to connect with POWER TOOL REPAIRER to determine if appointment has been [...] Onset Date Last Indicated Resolved Time CoV-Risk 06/04/2024 06/04/2024 06/15/2024 1:21 AM EDT CoV-Risk Comment:Per note documentation 05/13/2025 05/13/2025 11:51 PM EDT Assessment Noted Time PHQ-9 Depression Total Score: 8 09/02/20 22 9:53 AM EST documented as of this encounter Care Teams Musical String Maker Relationship Specialty Start Date End Date Fredrick Barkley DO PCP - General Internal Medicine 08/17/17 05/04/25 Fredrick Barkley DO [address] [place] [address] [email or web address] PCP - General Internal Medicine 05/05/25 Manpreet Huber MD [address] [place] [address] [email or web address] Intensive Care 02/24/19 Alfonzo Luis DO [address] [place] [address] [email or web address] Primary Oncologist Hematology and Oncology 09/03/20 Mary Willard FNP [address] [place] [address] [email or web address] Registered Nurse Nurse Practitioner 12/01/24 Aysha Clark NP [address] [place] [address] [email or web address] Nurse Practitioner Nurse Practitioner 12/14/24 12/22/24 documented as of this encounter Additional Source Comments The information contained in this document represents components of the legal health record. It is not the complete legal health record.[facility]
--- OUTSIDE RECORDS SUMMARY | 2025-06-28 18:56 | XMS_ITS | Encounter Summary ---
Author Organization [facility] Address [address] [place] [address] [place] [address] Phone Care Team Providers Care Copy Editor Name Role Phone Fredrick Barkley DO Primary Care Provider [phone] Manpreet Huber MD Unavailable [phone] Alfonzo Luis DO Unavailable [phone] Mary Willard CAREERS ADVISER Unavailable [phone] Aysha Clark ACID EXTRACTOR Unavailable [phone] Fredrick Barkley DO Primary Care Provider [phone] Encounter Details Date Type Department Care Team (Late st Contact Info) Description 04/09/2019 Procedure Pass [facility], [address] [address] Social History Tobacco Use Types Packs/Day Years [...] Sign Reading Time Taken Comments Blood Pressure - - Pulse - - Temperature - - Respiratory Rate - - Oxygen Saturation - - Inhaled Oxygen Concentration - - Weight 98.4 kg (217 lb) 04/09/2019 10:33 AM EDT Height 175.3 cm (5' 9 ) 04/09/2019 10:33 AM EDT Body Mass Index 32.05 04/09/2019 10:33 AM EDT documented in this encounter Plan of Treatment Upcoming Encounters Date Type Department Care Team (Late st Contact Info) Description 06/23/2025 Procedure Pass Event Monitor [address] [place] [address] 07/12/2025 8:30 AM EDT Appointment Non-Invasive Cardiology [address] [place] [address] Gene Oreilly, PAPER AND PULP MILL WORKER [address] [place] [address] 07/21/2025 9:15 AM EDT Appointment Event Monitor [address] [place] [address] Gene Oreilly, PAPER AND PULP MILL WORKER [address] [place] [address] 09/05/2025 9:30 AM EST Office Visit [facility] Pulmonary, Allergy and Critical Care Medicine [address] [facility] [place] [address] Manpreet Huber MD [address] [place] [address] 2nd [place] [address] 09/25/2025 11:00 AM EST Office Visit [facility] [address]rd Floor, [address] [place] [address] Gene Oreilly, PAPER AND PULP MILL WORKER [address] [place] [address] documented as of this encounter Visit Diagnoses Not on filedocumented in this encounter Additional Health Concerns Infection Onset Date Last Indicated Resolved Time CoV-Risk 05/14/2020 05/16/2020 05/30/2020 1:23 AM EDT CoV-Risk 06/11/2022 06/11/2022 06/22/2022 1:22 AM EDT CoV-Risk 06/04/2024 06/04/2024 06/15/2024 1:21 AM EDT CoV-Risk Comment:Per note documentation 05/13/2025 05/13/2025 11:51 PM EDT documented as of this encounter Care Teams Copy Editor Relationship Specialty Start Date End Date Fredrick Barkley DO [email or web address] PCP - General Internal Medicine 08/17/17 05/04/25 Fredrick Barkley DO [address] [place] [address] [email or web address] PCP - General Internal Medicine 05/05/25 Manpreet Huber MD [address] [place] [address] [email or web address] Intensive Care 02/24/19 Alfonzo Luis DO [address] [place] [address] [email or web address] Primary Oncologist Hematology and Oncology 09/03/20 Mary Willard FNP [address] [place] [address] [email or web address] Registered Nurse Nurse Practitioner 12/01/24 Aysha Clark, ANDRÉS [address] [place] [address] [email or web address] Nurse Practitioner Nurse Practitioner 12/14/24 12/22/24 documented as of this encounter Additional Source Comments The information contained in this document represents components of the legal health record. It is not the complete legal health record.[facility]
--- OUTSIDE RECORDS SUMMARY | 2025-06-28 18:56 | XMS_ITS | Encounter Summary ---
Author Organization [facility] Address [address] [facility] [address] [place] [address] Phone Care Team Providers Care Director Of Restaurant Operations Name Role Phone Fredrick Barkley DO Primary Care Provider [phone] Manpreet Huber MD Unavailable [phone] Alfonzo Luis DO Unavailable [phone] Mary Willard BUFFING LINE SET UP WORKER Unavailable [phone] Aysha Clark STRAND AND BINDER CONTROLLER Unavailable [phone] Fredrick Barkley DO Primary Care Provider [phone] Reason for Referral * MRI/CAT Scan - Closed Specialty Diagnoses / Procedures Referred By Tina coles Referred To Contact Radiology Diagnoses Prostate cancer Procedures NM Bone Scan Whole Body Ary Martin PA Phone: tel: fax: [email or web address] Referral ID Status Reason Start Date Expiration Date Visits Re quested Visits Authorized [id number] Closed 01/24/2019 01/24/2020 2 2 Encounter Details Date Type Department Care Team (Latest Contact Info) Description 01/24/2019 Transcribe Orders [facility] Department [address] [place] [address] Ary Martin PA [address] [address] [place] [address] [email or web address] Prostate cancer (Primary Dx) Social History Tobacco [...] End Date retired, worked [address] [employer] [employer] [facility] [employer] Not on file Not on file Not on file documented as of this encounter Plan of Treatment Upcoming Encounters Date Type Department Care Team (Late st Contact Info) Description 06/23/2025 Procedure Pass Event Monitor [address] [place] [address] 07/12/2025 8:30 AM EDT Appointment Non-Invasive Cardiology [address] [place] [address] Gene Oreilly, CITRIX ADMINISTRATOR [address] [place] [address] [email or web address] 07/21/2025 9:15 AM EDT Appointment Event Monitor [address] [place] [address] Gene Oreilly, CITRIX ADMINISTRATOR [address] [place] [address] 09/05/2025 9:30 AM EST Office Visit [facility] 10 [place] [address] Manpreet Huber MD [address] [address] 09/25/2025 11:00 AM EST Office Visit [facility] [address] 3rd Floor, [address] [place] [address] Gene Oreilly, CITRIX ADMINISTRATOR [address] [place] [address] [email or web address] documented as of this encounter Results * NM Bone Scan Whole Body (02/07/2019 11:22 AM EDT) Anatomical Region Laterality Modality Shoulder Right, Shoulder Lef t, Arm Left, Arm Right, Elbow Left, Elbow Right, Forearm Left, Forearm Right, Wrist Right, Wrist Left, Hand Left, Hand Right, Hip Left, Hip Right, Hip Bilateral, Thigh Left, Thigh Right, Knee Left, Knee Right, Knee Bilateral, Leg Left, Leg Right, Ankle Left, Ankle Right, Foot Left, Foot Right, Pelvis Nucle ar Medicine 02/07/2019 11:2 3 AM EDT Impressions 02/07/2019 11:28 AM EDT No definitive findings of bony metastatic disease are confirmed. S/S: Elevated PSA, history of prostate carcinoma POS - [id number] Narrative 02/07/2019 11:28 AM EDT DOSE: 24.9 mCi Tc-99m labeled MDP COMPARISON: Prior bone scan 01/07/[address] pelvis 02/07/2019 FINDINGS: Whole body imaging is obtained. There are 2 functioning kidneys. The increased activity evident previously in the approximate L2 vertebral body centrum is less intense and is likely secondary to degenerative change. Minor activity at the manubrial sternal junction is also noted and is unchanged. This is likely degenerative in nature. There is slight activity in the left hip which is also likely degenerative. No definitive findings of bony metastatic disease are seen. Procedure Note Jovani Rhodes MD - 02/07/2019 DOSE: 24.9 mCi Tc-99m labeled MDP COMPARISON: Prior bone scan 01/07/[address] pelvis 02/07/2019 FINDINGS: Whole body imaging is obtained. There are 2 functioning kidneys. The increased activity evident previously in the approximate L2 vertebralbody centrum is less intense and is likely secondary to degenerativechange. Minor activity at the manubrial sternal junction is also noted andis unchanged. This is likely degenerative in nature. There is slightactivity in the left hip which is also likely degenerative. No definitive findings of bony metastatic disease are seen. IMPRESSION: No definitive findings of bony metastatic disease are confirmed. S/S: Elevated PSA, history of prostate carcinoma POS - [id number] Ary GARCIA IMG NM BONE SCAN Final Res ult documented in this encounter Visit Diagnoses Diagnosis Prostate cancer- Primary Malignant neoplasm of prostate Prostate cancer Malignant neoplasm of prostate documented in this encounter Additional Health Concerns Infection Onset Date Last Indicated Resolved Time CoV-Risk 05/14/2020 05/16/2020 05/30/2020 1:23 AM EDT CoV-Risk 06/11/2022 06/11/2022 06/22/2022 1:22 AM EDT CoV-Risk 06/04/2024 06/04/2024 06/15/2024 1:21 AM EDT CoV-Risk Comment:Per note documentation 05/13/2025 05/13/2025 11:51 PM EDT documented as of this encounter Care Teams Director Of Restaurant Operations Relationship Specialty Start Date End Date Fredrick Barkley DO [email or web address] PCP - General Internal Medicine 08/17/17 05/04/25 Fredrick Barkley DO [address] [place] [address] PCP - General Internal Medicine 05/05/25 Manpreet Huber MD [address] [address] Intensive Care 02/24/19 Alfonzo Luis DO 30 [place] [address] [email or web address] Primary Oncologist Hematology and Oncology 09/03/20 Mary Willard FNP [address] [place] [address] [email or web address] Registered Nurse Nurse Practitioner 12/01/24 Aysha Clark NP [address] [place] [address] [email or web address] Nurse Practitioner Nurse Practitioner 12/14/24 12/22/24 documented as of this encounter Additional Source Comments The information contained in this document represents components of the legal health record. It is not the complete legal health record.[facility]
--- OUTSIDE RECORDS SUMMARY | 2025-06-28 18:56 | XMS_ITS | Encounter Summary ---
Author Organization [facility] Address [address] [facility] [address] [place] [address] Phone Care Team Providers Care Casual Shoe Inspector Name Role Phone Fredrick Barkley DO Primary Care Provider [phone] Manpreet Huber MD Unavailable [phone] Alfonzo Luis DO Unavailable [phone] Mary Willard DISHING MACHINE OPERATOR Unavailable [phone] Aysha Clark MARKETING ADMINISTRATIVE ASSISTANT Unavailable [phone] Fredrick Barkley DO Primary Care Provider + Encounter Details Date Type Department Care Team (Latest Contact Info) Description 01/18/2019 Transcribe Orders [facility] Laboratory [address] [facility] 2nd [place] [address] Ruby Honeycutt PA [address] [place] [address] [email or web address] Malignant neoplasm of prostate (Primary Dx) Social [...] worked [address] [facility] [facility] Not on file Not on file Not on file documented as of this encounter Plan of Treatment Upcoming Encounters Date Type Department Care Team (Late st Contact Info) Description 06/23/2025 Procedure Pass Event Monitor [address] [place] [address] 07/12/2025 8:30 AM EDT Appointment Non-Invasive Cardiology [address] [place] [address] Gene Oreilly, EDUCATION PROFESSIONAL 50 [place] [address] 07/21/2025 9:15 AM EDT Appointment Event Monitor [address] [place] [address] Gene Oreilly, EDUCATION PROFESSIONAL [address] [place] [address] 09/05/2025 9:30 AM EST Office Visit [facility] [address] [facility] [place] [address] Manpreet Huber MD 10 [facility] 2nd [place] [address] 09/25/2025 11:00 AM EST Office Visit [facility] [address], [address] [place] [address] Gene Oreilly, EDUCATION PROFESSIONAL 50 [place] [address] documented as of this encounter Results * PSA (screening) (01/18/2019 8:52 AM EDT) PSA 2.23 0 - 4.00 ng/mL [facility] Blood 01/18/2019 8:52 AM EDT 01/18/2019 8:59 AM EDT us Ruby GARCIA LAB BLOOD ORDERABLES Final Result [facility] 30 [place] [address] documented in this encounter Visit Diagnoses Diagnosis Malignant neoplasm of prostate- Primary documented in this encounter Additional Health Concerns Infection Onset Date Last Indicated Resolved Time CoV-Risk 05/14/2020 05/16/2020 05/30/2020 1:23 AM EDT CoV-Risk 06/11/2022 06/11/2022 06/22/2022 1:22 AM EDT CoV-Risk 06/04/2024 06/04/2024 06/15/2024 1:21 AM EDT CoV-Risk Comment:Per note documentation 05/13/2025 05/13/2025 11:51 PM EDT documented as of this encounter Care Teams Casual Shoe Inspector Relationship Specialty Start Date End Date Fredrick Barkley DO [email or web address] PCP - General Internal Medicine 08/17/17 05/04/25 Fredrick Barkley DO [address] [place] [address] PCP - General Internal Medicine 05/05/25 Manpreet Huber MD [address] [place] [address] [email or web address] Intensive Care 02/24/19 Alfonzo Luis DO 30 [place] [address] [email or web address] Primary Oncologist Hematology and Oncology 09/03/20 Mary Willard FNP [address] [place] [address] [email or web address] Registered Nurse Nurse Practitioner 12/01/24 Aysha Clark NP [address] [place] [address] [email or web address] Nurse Practitioner Nurse Practitioner 12/14/24 12/22/24 documented as of this encounter Additional Source Comments The information contained in this document represents components of the legal health record. It is not the complete legal health record.[facility]
--- OUTSIDE RECORDS SUMMARY | 2025-06-28 18:56 | XMS_ITS | Encounter Summary ---
Author Organization [facility] Address [address] [place] [address] [place] [address] Phone Care Team Providers Care Toolroom Attendant Name Role Phone Fredrick Barkley DO Primary Care Provider [phone] Manpreet Huber MD Unavailable [phone] Alfonzo Luis DO Unavailable [phone] Mary Willard TEST ENGINEERING TECHNICIAN Unavailable [phone] Aysha Clark DECK BUILDER Unavailable [phone] Fredrick Barkley DO Primary Care Provider [phone] Reason for Referral * Speech Therapy (Routine) - Closed Specialty Diagnoses / Procedures Referred By Tina t Referred To Contact Speech Pathology Diagnoses Encounter for rehabilitation Jackie Vásquez PA Phone: tel: fax: [facility] 30 [place] [address] Phone: tel: Referral ID Status Reason Start Date Expiration Date Visits Re quested Visits Authorized [id number] Closed 05/25/2020 10/11/2020 6 6 Encounter Details Date Type Department Care Team (Latest Contact Info) Description 05/25/2020 Transcribe Orders [facility] 8 [place] [address] Jackie Vásquez PA 6 [facility] [place] [address] Encounter for rehabilitation (Primary Dx) Social History Tobacco Use Types [...] Date retired, worked 34 yrs at [employer] [employer] [employer] Not on file Not on file Not on file documented as of this encounter Plan of Treatment Upcoming Encounters Date Type Department Care Team (Late st Contact Info) Description 06/23/2025 Procedure Pass Event Monitor [address] [place] [address] 07/12/2025 8:30 AM EDT Appointment Non-Invasive Cardiology [address] [place] [address] Gene Oreilly, RAILROAD COMMISSIONER [address] [place] [address] 07/21/2025 9:15 AM EDT Appointment Event Monitor [address] [place] [address] Gene Oreilly, RAILROAD COMMISSIONER [address] [place] [address] 09/05/2025 9:30 AM EST Office Visit [facility] 10 [place] [address] Manpreet Huber MD [address] [address] 09/25/2025 11:00 AM EST Office Visit [facility] [address] 3rd Floor, [address] [place] [address] Gene Oreilly, RAILROAD COMMISSIONER 50 [place] [address] [email or web address] Scheduled Referrals Name Type Priority Associated Diagnoses Orde r Schedule Ambulatory referral to [facility] Speech Language Pathology Outpatient Referral Routine Encounter for rehabilitation Ordered: 05/25/2020 documented as of this encounter Goals Goal [...] divorce Current Homecare: Patient is followed by [facility] [employer] Occ Therapist Nancy who is working to connect patient with home DECK BUILDER and BH services. On Arrival to ED: [...] the community. Plan SW to connect with HAT FINISHING MATERIALS PREPARER to determine if appointment has been made [...] as of this encounter Visit Diagnoses Diagnosis Encounter for rehabilitation- Primary documented in this encounter Additional Health Concerns Infection Onset Date Last Indicated Resolved Time CoV-Risk 05/14/2020 05/16/2020 05/30/2020 1:23 AM EDT CoV-Risk 06/11/2022 06/11/2022 06/22/2022 1:22 AM EDT CoV-Risk 06/04/2024 06/04/2024 06/15/2024 1:21 AM EDT CoV-Risk Comment:Per note documentation 05/13/2025 05/13/2025 11:51 PM EDT documented as of this encounter Care Teams Toolroom Attendant Relationship Specialty Start Date End Date Fredrick Barkley DO PCP - General Internal Medicine 08/17/17 05/04/25 Fredrick Barkley DO [address] [place] [address], [place] [address] [email or web address] PCP - General Internal Medicine 05/05/25 Manpreet Huber MD [address] [place] [address] [email or web address] Intensive Care 02/24/19 Alfonzo Luis DO 30 [place] [address] [email or web address] Primary Oncologist Hematology and Oncology 09/03/20 Mary Wlilard FNP [address] [place] [address] [email or web address] Registered Nurse Nurse Practitioner 12/01/24 Aysha Clark NP [address] [place] [address] [email or web address] Nurse Practitioner Nurse Practitioner 12/14/24 12/22/24 documented as of this encounter Additional Source Comments The information contained in this document represents components of the legal health record. It is not the complete legal health record.[facility]
--- OUTSIDE RECORDS SUMMARY | 2025-06-28 18:56 | XMS_ITS | Encounter Summary ---
Author Organization [facility] Address [address] [facility] [address] [place] [address] Phone Care Team Providers Care Beef Splitter Name Role Phone Fredrick Barkley DO Primary Care Provider [phone] Manpreet Huber MD Unavailable [phone] Alfonzo Luis DO Unavailable [phone] Mary Willard DATA COLLECTION TECHNICIAN Unavailable [phone] Aysha Clark REGULATORY ANALYST Unavailable [phone] Fredrick Barkley DO Primary Care Provider [phone] Encounter Details Date Type Department Care Team (Late st Contact Info) Description 07/01/2021 Procedure Pass [facility], Ct Scan - [address] [address] Social History Tobacco Use Types Packs/Day Years [...] retired, worked 34 yrs at [employer] Not on file Not on file Not on file documented as of this encounter Functional Status * Calculated C-SSRS Risk Score (Lifetime/Recent) Answer Date of Assessment Author No Risk Indicated 07/01/2021 1:08 PM EDT Ava Colindres RN * [place] Suicide Severity Rating Scale (Screener/Recent Self-Report) Question Answer Date of Assessment Author 1. Wish to be (Past 1 Month) No 021 1:08 PM EDT Ava Colindres, MARCELINA 2. Non-Specific Active Suici bryson Thoughts (Past 1 Month) No 07/01/2021 1:08 PM EDT Ava Colindres, MARCELINA 6. Suicidal Behavior (Lifetime) No 1:08 PM EDT Ava Colindres RN documented as of this encounter Plan of Treatment Upcoming Encounters Date Type Department Care Team (Late st Contact Info) Description 06/23/2025 Procedure Pass Event Monitor [address] [place] [address] 07/12/2025 8:30 AM EDT Appointment Non-Invasive Cardiology [address] [place] [address] Gene Oreilly, CLOTHES IRONER [address] [place] [address] 07/21/2025 9:15 AM EDT Appointment Event Monitor [address] [place] [address] Gene Oreilly, CLOTHES IRONER [address] [place] [address] 09/05/2025 9:30 AM EST Office Visit [facility] 10 [place] [address] Manpreet Huber MD [address] [address] 09/25/2025 11:00 AM EST Office Visit [facility] [address] Floor, [address] [place] [address] Gene Oreilly, CLOTHES IRONER 50 [place] [address] [email or web address] documented as of this encounter Goals [...] increase respiratory distress. Psychosocial updates include: early fdc, loss of financial stability, psychological and physical limitations, and most recently separation and planned divorce Current Homecare: Patient is followed by [facility] Insurance Nursery Rn Nancy who is working to connect patient with home REGULATORY ANALYST and BH services. On Arrival to [...] from ED: Send Case Management Consult in [facility] to follow up that homecare [...] the community. Plan SW to connect with ANIMAL SHELTER SUPERVISOR to determine if appointment has been made for outpatient mental health follow up and patient assigned a therapist.CM also will work with Clary MOSLEY to connect patient to SW/RN home services. SW will also discuss the possibility of CUSTODIAL. Issues/Plan: High risk of respiratory distress. Plan [...] documented as of this encounter Care Teams Beef Splitter Relationship Specialty Start Date End Date Fredrick Barkley DO PCP - General Internal Medicine 08/17/17 05/04/25 Fredrick Barkley DO [address] [place] [address] PCP - General Internal Medicine 05/05/25 Manpreet Huber MD [address] [place] [address] [email or web address] Intensive Care 02/24/19 Alfonzo Luis DO [address] [place] [address] [email or web address] Primary Oncologist Hematology and Oncology 09/03/20 Mary Willard FNP [address] [place] [address] [email or web address] Registered Nurse Nurse Practitioner 12/01/24 Aysha Clark NP [address] [place] [address] [email or web address] Nurse Practitioner Nurse Practitioner 12/14/24 12/22/24 documented as of this encounter Additional Source Comments The information contained in this document represents components of the legal health record. It is not the complete legal health record.[facility]
--- OUTSIDE RECORDS SUMMARY | 2025-06-28 18:56 | XMS_ITS | Encounter Summary ---
Author Organization [facility] Address [address] [facility] [address] [place] [address] Phone Care Team Providers Care Warp Tier Name Role Phone Fredrick Barkley DO Primary Care Provider [phone] Manpreet Huber MD Unavailable [phone] Alfonzo Luis DO Unavailable [phone] Mary Willard BUSINESS INTELLIGENCE DIRECTOR Unavailable [phone] Aysha Clark KENNEL WORKER Unavailable [phone] Fredrick Barkley DO Primary Care Provider [phone] Encounter Details Date Type Department Care Team (Late st Contact Info) Description 05/26/2021 Procedure Pass [facility], Ct Scan - [address] [address] Social History Tobacco Use Types Packs/Day Years [...] Date retired, worked 34 yrs at [employer] Not on file Not on file Not on file documented as of this encounter Functional Status * Calculated C-SSRS Risk Score (Lifetime/Recent) Answer Date of Assessment Author No Risk Indicated 05/26/2021 2:11 PM EDT Rachel Cardenas RN * [place] Suicide Severity Rating Scale (Screener/Recent Self-Report) Question Answer Date of Assessment Author 1. Wish to be (Past 1 Month) No 05/26/2021 2:11 PM EDT Garry Hitchcock RN 2. Non-Specific Active Suicidal Thoughts (Past 1 Month) No 05/26/2021 2:11 PM EDT Garry Hitchcock RN 6. Suicidal Behavior (Lifetime) No 05/26/2021 2:11 PM EDT Garry Hitchcock RN documented as of this encounter Plan of Treatment Upcoming Encounters Date Type Department Care Team (Late st Contact Info) Description 06/23/2025 Procedure Pass Event Monitor [address] [place] [address] 07/12/2025 8:30 AM EDT Appointment Non-Invasive Cardiology [address] [place] [address] Gene Oreilly, DOOR TO DOOR LEAD GENERATION 50 [place] [address] 07/21/2025 9:15 AM EDT Appointment Event Monitor [address] [place] [address] Gene Oreilly, DOOR TO DOOR LEAD GENERATION [address] [place] [address] 09/05/2025 9:30 AM EST Office Visit [facility] 10 [facility] [place] [address] Manpreet Huber MD [address] [address] 09/25/2025 11:00 AM EST Office Visit [facility] [address], [address] [place] [address] Gene Oreilly, DOOR TO DOOR LEAD GENERATION [address] [place] [address] [email or web address] documented as of this encounter Goals Goal [...] increase respiratory distress. Psychosocial updates include: early long term, loss of financial stability, psychological and physical limitations, and most recently separation and planned divorce Current Homecare: Patient is followed by [facility] Insurance Shoe Stitcher Nancy who is working to connect patient with home KENNEL WORKER and BH services. On Arrival to ED: [...] from ED: Send Case Management Consult [facility] to follow up that homecare services [...] the community. Plan SW to connect with NEON PUMPER to determine if appointment has been made [...] documented as of this encounter Care Teams Warp Tier Relationship Specialty Start Date End Date Fredrick Barkley DO PCP - General Internal Medicine 08/17/17 05/04/25 Fredrick Barkley DO [address] [place] [address] PCP - General Internal Medicine 05/05/25 Manpreet Huber MD [address] [place] [address] [email or web address] Intensive Care 02/24/19 Alfonzo Luis DO [address] [place] [address] [email or web address] Primary Oncologist Hematology and Oncology 09/03/20 Mary Willard FNP [address] [place] [address] [email or web address] Registered Nurse Nurse Practitioner 12/01/24 Aysha Clark NP [address] [place] [address] [email or web address] Nurse Practitioner Nurse Practitioner 12/14/24 12/22/24 documented as of this encounter Additional Source Comments The information contained in this document represents components of the legal health record. It is not the complete legal health record.[facility]
--- OUTSIDE RECORDS SUMMARY | 2025-06-28 18:56 | XMS_ITS | Encounter Summary ---
Author Organization [facility] Address [address] [place] [address] [place] [address] Phone Care Team Providers Care Bankruptcy Judge Name Role Phone Fredrick Barkley DO Primary Care Provider [phone] Manpreet Huber MD Unavailable [phone] Alfonzo Luis DO Unavailable [phone] Mary Willard QUICK SERVICE TECHNICIAN Unavailable [phone] Aysha Clark TOBACCO SCRAP SIFTER Unavailable [phone] Fredrick Barkley DO Primary Care Provider + Encounter Details Date Type Department Care Team (Late st Contact Info) Description 06/28/2020 Procedure Pass [facility] Endoscopy Admitting Dept Virtual Department [address] [place] [address] Social History Tobacco Use Types Packs/Day Years [...] End Date retired, worked 34 yrs at [employer] [facility] Not on file Not on file Not on file documented as of this encounter Plan of Treatment Upcoming Encounters Date Type Department Care Team (Late st Contact Info) Description 06/23/2025 Procedure Pass [facility] [address] [place] [address] 07/12/2025 8:30 AM EDT Appointment Non-Invasive Cardiology [address] [place] [address] Gene Oreilly, STREET INSPECTOR [address] [place] [address] [email or web address] 07/21/2025 9:15 AM EDT Appointment Event Monitor [address] [place] [address] Gene Oreilly, STREET INSPECTOR [address] [place] [address] [email or web address] 09/05/2025 9:30 AM EST Office [place] [facility] [place], Allergy and Critical Care Medicine 10 [facility] [place] [address] Manpreet Huber MD 10 [facility] 2nd [place] [address] 09/25/2025 11:00 AM EST Office Visit [facility] 22 [facility] 3rd Floor, [address] [place] [address] Gene Oreilly, ELENI [address] [place] [address] documented as of this encounter Goals Goal [...] increase respiratory distress. Psychosocial updates include: early shelter, loss of financial stability, psychological and physical limitations, and most recently separation and planned divorce Current Homecare: Patient is followed by [facility] Insurance Opener Tender Nancy who is working to connect patient with home TOBACCO SCRAP SIFTER and BH services. On Arrival to ED: [...] from ED: Send Case Management Consult in [facility] to follow up that [...] the community. Plan SW to connect with TRAIN ATTENDANT to determine if appointment has been made [...] documented as of this encounter Care Teams Bankruptcy Judge Relationship Specialty Start Date End Date Fredrick Barkley DO [email or web address] PCP - General Internal Medicine 08/17/17 05/04/25 Fredrick Barkley DO [address] [place] [address] [email or web address] PCP - General Internal Medicine 05/05/25 Manpreet Huber MD [address] [place] [address] [email or web address] Intensive Care 02/24/19 Alfonzo Luis DO 30 [place] [address] [email or web address] Primary Oncologist Hematology and Oncology 09/03/20 Mary Willard FNP [address] [place] [address] [email or web address] Registered Nurse Nurse Practitioner 12/01/24 Aysha ClarkANDRÉS [address] [place] [address] [email or web address] Nurse Practitioner Nurse Practitioner 12/14/24 12/22/24 documented as of this encounter Additional Source Comments The information contained in this document represents components of the legal health record. It is not the complete legal health record.[facility]
--- OUTSIDE RECORDS SUMMARY | 2025-06-28 18:56 | XMS_ITS | Encounter Summary ---
Author Organization [facility] Address [address] [facility] [address] [place] [address] Phone Care Team Providers Care Safe Deposit Clerk Name Role Phone Fredrick Barkley DO Primary Care Provider [phone] Manpreet Huber MD Unavailable [phone] Alfonzo Luis DO Unavailable [phone] Mary Willard STAGE SET DESIGNER Unavailable [phone] Aysha Clark NP Unavailable [phone] Fredrick Barkley DO Primary Care Provider [phone] Encounter Details Date Type Department Care Team (Late st Contact Info) Description 06/11/2020 Transcribe Orders [facility] Laboratory 30 [place] [address] Alfonzo Luis DO 30 [place] [address] [email or web address] Social History Tobacco Use Types Packs/Day Years [...] End Date retired, worked 34 yrs at [employer] [employer] [employer] Not on file Not on file Not on file documented as of this encounter Plan of Treatment Upcoming Encounters Date Type Department Care Team ([facility] Contact Info) Description 06/23/2025 Procedure Pass Event Monitor [address] [place] [address] 07/12/2025 8:30 AM EDT Appointment Non-Invasive Cardiology [address] [place] [address] Gene Oreilly, RADIOLOGIC THERAPIST [address] [place] [address] 07/21/2025 9:15 AM EDT Appointment Event Monitor [address] [place] [address] Gene Oreilly, RADIOLOGIC THERAPIST [address] [place] [address] 09/05/2025 9:30 AM EST [facility] [place] [facility] [place], Allergy and Critical Care Medicine 10 [facility] [place] [address] Manpreet Huber MD [address] [place] [address] 2nd [place] [address] 09/25/2025 11:00 AM EST Office Visit [facility] 22 [facility] 3rd Floor, [address] [place] [address] Gene Oreilly, RADIOLOGIC THERAPIST [address] [place] [address] documented as of this encounter Goals Goal Patient Goal Type Associated Problems Recent Progress Patient-Stated? Author Acute Care Plan Acute Care Plan Cheli Pal RN Note: Current Management Plans: Clinical: Jessu is a 69 yo male with history [...] and depression, and this has been a cano factor in increasing his level of vocal cord dysfunction and leading to increase respiratory distress. Psychosocial updates include: early [facility], loss of financial stability, psychological and physical limitations, and most recently separation and planned divorce Current Homecare: Patient is followed by [facility] Insurance Security And Compliance Analyst Nancy who is working to connect patient with home BABY FORMULA MIXER and BH services. On Arrival to ED: [...] from ED: Send Case Management Consult in [facility] to follow up that homecare services are in place and if additional services are needed this can then be coordinated If patient is to be admitted to Hospital: Consult should be made for and SW services upon admission [facility] Psychiatric and Psychosocial Considerations: Anxiety and Depression and recent separation and pending divorce Issues/Plan: Lack of connection to therapist in the community. Plan SW to connect with FINE SANDER to determine if appointment has been made for outpatient mental health follow up and patient assigned a therapist. also will work with Clary MOSLEY to connect patient to SW/RN home services. SW will also discuss the possibility of SENIOR LIVING. Issues/Plan: High risk of respiratory distress. Plan [...] (Internal Medicine) Manpreet Huber MD (Intensive Care) Cano Specialists: Care Plan Endorsed or authored by: [...] documented as of this encounter Care Teams Safe Deposit Clerk Relationship Specialty Start Date End Date Fredrick Barkley DO [email or web address] PCP - General Internal Medicine 08/17/17 05/04/25 Fredrick Barkley DO [address] [place] [address] [email or web address] PCP - General Internal Medicine 05/05/25 Manpreet Huber MD [address] [place] [address] [email or web address] Intensive Care 02/24/19 Alfonzo Luis DO [address] [place] [address] [email or web address] Primary Oncologist Hematology and Oncology 09/03/20 Mary Willard FNP [address] [place] [address] [email or web address] Registered Nurse Nurse Practitioner 12/01/24 Aysha Clark NP [address] [place] [address] [email or web address] Nurse Practitioner Nurse Practitioner 12/14/24 12/22/24 documented as of this encounter Additional Source Comments The information contained in this document represents components of the legal health record. It is not the complete legal health record.[facility]
--- OUTSIDE RECORDS SUMMARY | 2025-06-28 18:57 | XMS_ITS | Encounter Summary ---
Author Organization [facility] Address [address] [facility] [address] [place] [address] Phone Care Team Providers Care Cafeteria Food Server Name Role Phone Fredrick Barkley DO Primary Care Provider [phone] Manpreet Huber MD Unavailable [phone] Alfonzo Luis DO Unavailable [phone] Mary Willard RESIDENT SERVICES SUPERVISOR Unavailable [phone] Aysha Clark ADDICTION NURSE Unavailable [phone] Fredrick Barkley DO Primary Care Provider [phone] Encounter Details Date Type Department Care Team (Late st Contact Info) Description 12/02/2021 Procedure Pass [facility], Ct Scan - [address] [address] Social History Tobacco Use Types Packs/Day Years [...] retired, worked 34 yrs at [employer] Not on file Not on file Not on file documented as of this encounter Functional Status * Calculated C-SSRS Risk Score (Lifetime/Recent) Answer Date of Assessment Author No Risk Indicated 12/02/2021 11:43 AM Luis Alberto Yang, MARCELINA * [place] Suicide Severity Rating Scale (Screener/Recent Self-Report) Question Answer Date of Assessment Author 1. Wish to be (Past 1 Month) No 12/02/2021 11:43 AM Aretha Herrera, MARCELINA 2. Non-Specific Active Suicidal Thoughts (Past 1 Month) No 12/02/2021 11:43 AM Aretha Herrera, MARCELINA 6. Suicidal Behavior (Lifetime) No 12/02/2021 11:43 AM Aretha Herrera, MARCELINA documented as of this encounter Plan of Treatment Upcoming Encounters Date Type Department Care Team (Late st Contact Info) Description 06/23/2025 Procedure Pass Event Monitor [address] [place] [address] 07/12/2025 8:30 AM EDT Appointment Non-Invasive Cardiology [address] [place] [address] Gene Oreilly, APPLIED BIOLOGY PROFESSOR [address] [place] [address] 07/21/2025 9:15 AM EDT Appointment Event Monitor [address] [place] [address] [place] [address] Gene Oreilly, APPLIED BIOLOGY PROFESSOR [address] [place] [address] 09/05/2025 9:30 AM EST Office Visit [facility] Pulmonary, Allergy and Critical Care Medicine 10 [facility] [place] [address] Mapnreet Huber MD 10 [facility] 2nd [place] [address] 09/25/2025 11:00 AM EST Office Visit [facility] [address] Floor, [address] [place] [address] Gene Oreilly, APPLIED BIOLOGY PROFESSOR 50 [place] [address] [email or web address] documented as of this encounter Goals Goal [...] increase respiratory distress. Psychosocial updates include: early alf, loss of financial stability, psychological and physical limitations, and most recently separation and planned divorce Current Homecare: Patient is followed by [facility] Insurance Hearing Specialist Nancy who is working to connect patient with home ADDICTION NURSE and BH services. On Arrival to ED: [...] from ED: Send Case Management Consult in [facility] to follow up that homecare services [...] the community. Plan SW to connect with PUBLIC HEALTH ADVISOR to determine if appointment has been made for outpatient mental health follow up and patient assigned a therapist. also will work with Clary MOSLEY to connect patient to SW/RN home services. SW will also discuss the possibility of GROUP HOME. Issues/Plan: High risk of respiratory distress. Plan [...] documented as of this encounter Care Teams Cafeteria Food Server Relationship Specialty Start Date End Date Fredrick Barkley DO [email or web address] PCP - General Internal Medicine 08/17/17 05/04/25 Fredrick Barkley DO [address] [place] [address] PCP - General Internal Medicine 05/05/25 Manpreet Huber MD [address] [place] [address] [email or web address] Intensive Care 02/24/19 Alfonzo Luis DO [address] [place] [address] [email or web address] Primary Oncologist Hematology and Oncology 09/03/20 Mary Willard FNP [address] [place] [address] [email or web address] Registered Nurse Nurse Practitioner 12/01/24 Aysha Clark NP [address] [place] [address] [email or web address] Nurse Practitioner Nurse Practitioner 12/14/24 12/22/24 documented as of this encounter Additional Source Comments The information contained in this document represents components of the legal health record. It is not the complete legal health record.[facility]
--- OUTSIDE RECORDS SUMMARY | 2025-06-28 18:57 | XMS_ITS | Clinical Summary ---
Author Organization [facility] Address [address] [place] [address] Phone Care Team Providers Care Senior Energy Trader Name Role Phone Manpreet Huber MD Unavailable [phone] Alfonzo Luis DO Unavailable [phone] Mary Willard DOUGHNUT MACHINE OPERATOR HELPER Unavailable [phone] Fredrick Barkley DO Primary Care Provider [phone] Allergies Active Allergy Reactions Criticality Noted Date Comments Albuterol Shortness Of Breath,Unknown High 05/16/20 11 Buspirone Tremor Low 06/09/2020 Quetiapine Swelling Medium 05/16/2011 Medications * This document contains information received from the source organization and may not represent a complete record from that organization. traZODone (DESYREL) 150 MG tablet Take 150 mg by mouth nightly. Active tamsulosin (FLOMAX) 0.4 mg Cap Take 0.4 mg by mouth nightly. 1/2 HOUR AFTER LAST MEAL OF THE DAY Active DULoxetine (CYMBALTA) 60 MG capsule Take 1 capsule (60 mg total) by mouth 2 (two) times a day. 60 capsule 2 08/23/20 19 Active blood sugar diagnostic (GLUCOSE BLOOD) Strp strips ONETOUCH ULTRA BLUE TEST STRIPS test once a day Active blood-glucose Misc meter OneTouch Verio Flex Meter Active lancets 28 gauge Misc Active glipiZIDE (GLUCOTROL) 5 MG tablet Take 5 mg by mouth daily. 07/28/20 21 Active blood sugar diagnostic (ONETOUCH ULTRA TEST) Strp strips OneTouch Ultra Blue Test Strips test once a day Active cholecalciferol (VITAMIN D3) 25 MCG (1,000 unit) tablet Take 1,000 Units by mouth daily. Active azelastine (ASTELIN) 137 mcg (0.1 %) nasal spray 1 spray by Nasal route 2 (two) times a day. Use in each nostril as directed 30 mL 12 03/22/20 24 Active abiraterone (ZYTIGA) 250 mg TabIndications:P rostate cancer Take 4 tablets (1,000 mg total) by mouth daily. 120 tablet 11 07/06/20 24 Active rosuvastatin (CRESTOR) 40 MG tablet Take 1 tablet (40 mg total) by mouth daily. 90 tablet 12/06/19 25 Active rivaroxaban (XARELTO) 20 mg TabIndications:P aroxysmal atrial fibrillation Take 1 tablet (20 mg total) by mouth daily with dinner. 90 tablet 3 12/06/19 25 Active clopidogrel (PLAVIX) 75 mg tablet Take 1 tablet (75 mg total) by mouth daily. 90 tablet 3 12/06/19 25 Active LORazepam (ATIVAN) 0.5 MG tablet Take 1 tablet (0.5 mg total) by mouth every 8 (eight) hours as needed for anxiety (Symptoms of vocal cord dysfunction). 20 tablet 05/16/20 25 Active fluticasone propionate (FLONASE) 50 mcg/actuation nasal spray 1 spray by Nasal route daily. 16 g 2 05/16/20 25 Active OLANZapine (ZYPREXA) 5 MG tablet Take 0.5 tablets (2.5 mg total) by mouth nightly at bedtime. 30 tablet 1 05/16/20 25 Active gabapentin (NEURONTIN) 100 MG capsule Take 2 capsules (200 mg total) by mouth 3 (three) times a day. 300 capsule 05/21/20 25 Active acetaminophen (TYLENOL) 325 mg tablet Take 3 tablets (975 mg total) by mouth every 8 (eight) hours as needed for pain (specific location in comments). 05/21/20 25 Active ferrous gluconate 324 mg (38 mg elemental) tablet Take 1 tablet (324 mg total) by mouth daily. 60 tablet 05/22/20 25 Active lidocaine 4 % Place 1 patch onto the skin daily. 30 patch 05/22/20 25 Active nitroglycerin (NITROSTAT) 0.[address] 1 tablet (0.4 mg total) under the tongue every 5 (five) minutes as needed for chest pain. 25 tablet 3 06/23/20 25 Active amLODIPine (NORVASC) 5 MG tablet Take 1 tablet (5 mg total) by mouth daily. 30 tablet 5 06/23/20 25 Active lisinopril (PRINIVIL,ZESTRI L) 10 MG tablet Take 0.5 tablets (5 mg total) by mouth daily. 45 tablet 3 06/23/20 25 Active predniSONE (DELTASONE) 5 MG tablet TAKE 1 TABLET(5 MG) BY MOUTH DAILY WITH BREAKFAST 90 tablet 3 06/27/20 25 Active azelastine (ASTEPRO) 205.5 mcg (0.15 %) [place] 1 spray by Each Nare route daily. 30 mL 11 03/17/20 24 Discontinued predniSONE (DELTASONE) 5 MG tablet TAKE 1 TABLET(5 MG) BY MOUTH DAILY WITH BREAKFAST 90 tablet 3 04/06/20 24 025 Discontinued lisinopril (PRINIVIL,ZESTRI L) 10 MG tablet Take 1 tablet (10 mg total) by mouth daily. 60 tablet 05/22/20 25 025 Discontinued Active Problems Patient Care Coordination No te Formatting of this note migh t be different from the original. Height 171.4 cm no shoes. 12/25/2022 Problem Noted Date Diagnosed Date ANDREAS (acute kidney injury) 05/20/2025 Assessment & Plan (05/20/2025 11:44 AM EDT): Patient with a baseline creatinine of 1.0. ANDREAS on admission with creatinine up to 1.3. Plan to continue IV fluid hydration as patient was very dehydrated on admission. Likely prerenal azotemia. - Bladder scan - Monitor BMP - Continue IV fluid, encourage p.o. hydration - Urinalysis noninfectious - Patient denies abdominal pain, flank pain, hematuria, dysuria. Consider imaging if no improvement after IV hydration Iron deficiency anemia 05/20/2025 Assessment & Plan (05/20/2025 12:18 PM EDT): Patient with mild anemia appears chronic over the past year. Anemia of chronic disease prostate CA w mets likely also contributing. - Iron studies showed iron saturation 14, iron deficiency contributing daily iron supplementation ordered - Normocytic, normochromic will check LDH, haptoglobin, reticulocyte count - FIT test pending. - Follow up outpatient with PCP/ oncology Symptomatic bradycardia 05/19/2025 Assessment & Plan (05/20/2025 10:24 AM EDT): Patient presented for right arm pain and paresthesias. He was incidentally found to be hypotensive, bradycardic. Patient also appeared dehydrated on admission hypotension and bradycardia possibly secondary to metoprolol use as well. Hypotension resolved with IV fluids and holding metoprolol. - EKG sinus bradycardia first-degree AV block reviewed with cardiology pt will need outpatient ischemic workup - Home metoprolol 25 XL daily discontinued -Troponin 110/102 - proBNP 1,460 - Cardiology consulted patient appeared dehydrated on admission, stopped metoprolol - Continue Plavix status post PCI of LAD - Continue Xarelto for A-fib - TSH wnl - Echo pending Assessment & Plan (05/19/2025 1:54 PM EDT): Patient presented for right arm pain and paresthesias. He was incidentally found to be hypotensive, bradycardic. Patient also appeared dehydrated on admission hypotension and bradycardia possibly secondary to metoprolol use as well. Hypotension resolved with IV fluids. - EKG sinus bradycardia first-degree AV block - Home metoprolol 25 XL daily discontinued -Troponin 110/102 - proBNP pending - Cardiology consulted patient appeared dehydrated on admission, stopped metoprolol - Continue Plavix status post PCI of LAD - Continue Xarelto for A-fib - TSH pending Penetrating ulcer of aorta 05/13/2025 Assessment & Plan (05/13/2025 11:48 PM EDT): See on CTA in late March at [facility]. CTA showed penetrating atherosclerotic ulcers measuring 0.3 cm in depth, roughly 0.4cm in width and 0.5cm in length. There is no associated aneurysm or dissection. This is to be followed up as outpatient with [facility] vascular surgery. If he were to decompensate, having exceedingly high pressures, chest or abdominal pain would get CTA. Assessment & Plan (05/13/2025 10:39 PM EDT): Mr. Zepeda is a 75 year old male with a history of diabetes, hypertension, bilateral lower extremity neuropathy, previous back surgery, coronary artery disease status PCI with drug-eluting stent of the LAD in 2021, NSTEMI status post diagnostic cath and drug-eluting stent x 2 in the RCA and May 2024 who presents to [facility] on 04/10 with concerns of bilateral upper extremity weakness. Out of concern for aortic dissection a CTA was obtained that does show penetrating atherosclerotic ulcers measuring 0.3 cm in depth, roughly 0.4cm in width and 0.5cm in length. There is no associated aneurysm or dissection. He is hemodynamically stable in the emergency department and afebrile. He is hypertensive with systolics in the 160s, he is not tachycardic though he has beta blocked. He has no leukocytosis, H&H is stable, electrolytes within normal limits. Troponin of 14. Patient is compliant with his medications including anticoagulation and antihypertensives. Given his stability and reliability he is appropriate for outpatient follow-up in the vascular surgery office to further evaluate and discuss management of his penetrating aortic ulcer. Spinal stenosis of cervical region 05/13/2025 Assessment & Plan (05/20/2025 10:24 AM EDT): As per chart review April 11 was seen at [facility] for bilateral upper extremity parathesias - MRI cervical spine: C4-C5 stenosis with T2 signal change. - Neurosurgery evaluated and planning for outpatient with [facility]. - PT/OT consulted - Tylenol PRN, Gabapentin dose increased to 200 mg TID - Patient has not followed up with neurosurgery because he said he wanted to see his primary care provider first. Patient was advised that he should make an appointment to see neurosurgery as soon as possible. Assessment & Plan (05/19/2025 1:54 PM EDT): April 11 was seen at [facility] for bilateral upper extremity parathesias - MRI cervical spine: C4-C5 stenosis with T2 signal change. - Neurosurgery evaluated and planning for outpatient with [facility]. - PT/OT consulted - Tylenol PRN, Gabapentin dose increased to 200 mg TID - Patient has not followed up with neurosurgery because he said he wanted to see his primary care provider first. Patient was advised that he should make an appointment to see neurosurgery as soon as possible. Assessment & Plan (05/13/2025 11:48 PM EDT): April 11 was seen at [facility] ED for evaluation of sudden onset of bilateral (right>left) upper extremity MRI cervical spine was obtained which revealed C4- C5 stenosis with T2 signal change. Neurosurgery evaluated and planning for outpatient f/u. Home PT Class 1 obesity 05/13/2025 Hypertension 05/13/2025 Acute myocardial infarction of inferior wall 08/2024 Diabetic peripheral neuropathy 04/22/2024 Hot flashes 03/11/2024 Presence of stent in anterio r descending branch of left coronary artery 10/29/2022 Assessment & Plan (11/17/2023 10:53 AM EST): Stent is widely patent by nuclear imaging Coronary artery disease invo lving [place] coronary artery of [place]nee heart 07/29/2022 Assessment & Plan (06/23/2025 11:10 AM EDT): S/p PCI to LAD in Jul 2022 and to mid RCA in May 2024. For the past 2 months has been experiencing chest discomfort which can happen at rest but notably worsens with exertion. Previously this has been attributed to his cervical spinal stenosis however he is concerned because he states this is the [...] be taken as needed. ED precautions discussed Assessment & Plan (05/14/2025 5:30 PM EDT): S/p PCI to LAD in Jul 2022 and to mid RCA in May 2024. Currently without chest pain, ECG without ischemic changes, trop flat. Continue plavix. No cardiac conditions contributing to his hospitalization at this time. Assessment & Plan (05/13/2025 11:48 PM EDT): S/p PCI to LAD in Jul 2022 and to mid RCA in May 2024. Currently without chest pain, ECG without ischemic changes, trop flat. Continue plavix. Assessment & Plan (12/06/2024 11:46 AM EST): Status post PCI I also asked him to go back on his Plavix which she decided to stop on his own Assessment & Plan (06/24/2024 9:09 AM EDT): Recent non-ST elevation CT requiring a stent to the right coronary artery I am going to check his left ventricular function with an echocardiogram Assessment & Plan (04/19/2024 9:29 AM EDT): Asymptomatic from a CAD standpoint Assessment & Plan (11/17/2023 10:53 AM EST): As mentioned recent stress test shows normal LV function and no ischemia. Echo does show mild to moderate aortic regurgitation I will consider repeating an echo in a year Assessment & Plan (08/31/2023 10:53 AM EST): As mentioned we will order a stress test and an echo and I will see him thereafter in follow-up Assessment & Plan (07/29/2022 2:36 PM EDT): He also felt a mild shortness of breath and a stabbing pain. EMS was called and he was transferred to [facility] for evaluation. Currently he was brought to the [facility] on 07/16/2022, he was found to have a lesion in his proximal LAD ostial 90% stenosis. He did receive a drug-eluting stent. He was started on Brilinta 90 mg twice daily and recommended to continue this for 12 months post PCI in addition to his aspirin 81 mg daily. He listed an allergy to aspirin so he was desensitized to this while hospitalized. Post procedure echo showed ejection fraction 60 to 65% with no wall motion abnormalities. He had a moderate diastolic dysfunction, mild aortic regurgitation and thickening mitral valve with mild regurgitation. CT angio chest performed on 07/16/2022 for evaluation of aortic dissection which was negative. Post stent course complicated by shortness of breath. He was ultimately sent home on lisinopril 20 mg daily, Brilinta 90 mg twice daily, aspirin 81 mg daily and asked to follow-up in 1 week which she is here for today. He tells me he feels better after having his stents. We also discussed that he is having some leg pain while on pravastatin. I will discontinue this medication and start him on rosuvastatin 20 mg daily. We will repeat a lipid panel in 3 months. We will see him in follow-up in 3 months to check on how he is doing. He is currently receiving VNA services and once since he will be attending cardiac rehab. He was strongly encouraged to do continue with cardiac rehab. His blood pressure is elevated today at 160/70. He tells me checking blood pressure at home who ranges 120-140 systolic. He will continue on lisinopril 10 mg daily, metoprolol 25 mg daily. We did discuss at great length today about reducing sodium in his food where he could. He also should continue to be active and exercise. We will continue to optimize his cardiac risk factors. If his blood pressures remain elevated we will need to increase his lisinopril. Syncope 08/02/2021 Assessment & Plan (08/04/2021 5:09 PM EDT): Patient did not present with complaint of syncope or near syncope. He reports dizziness near syncope or syncope is not an ongoing issue for him at all electric accounting machine operator consulted who suggested symptoms could be due to Parkinson's- patient says he does not think he has Parkinson's unclear why this diagnosis is in old records Patient evaluated with echo and placed on monitor to evaluate syncope further. Patient had episode when he became quite dizzy and diaphoretic with PT yesterday. They were not in location where his blood pressure could be checked. Upon returning to his room his blood pressure was actually quite elevated. Nursing has checked orthostatics which have been negative. His episodes of syncope are quite puzzling. Suspect maybe due to something psych i.e. panic attacks-he has had strange episodes prompting medical evaluations in the past including multiple ED visits 2020 for shortness of breath ultimately attributed to a psychiatric cause as noted in patient's acute care plan that was developed then. Past medical history in [facility] has listed PTSD pseudoseizures panic agoraphobia possible conversion disorder Further investigate with EEG, increase propranolol dose today as well as ordered his regularly scheduled Ativan. Check catecholamines.? Psych consult if lab work is negative or interventions do not work Alcohol abuse 08/02/2021 Assessment & Plan (08/04/2021 5:11 PM EDT): Patient reported he does not use alcohol but when he was told his alcohol level was elevated on his lab work in the ED he did say that he is drinking. CIWA score was requested. Scoring low Vocal cord dysfunction 04/04/2019 Assessment & Plan (05/14/2025 5:30 PM EDT): Presented stridors,but improved with benzo and xeponex. Unclear etiology of his stridor. Most likely psychosocial stressors. Will consult social work and discussed with case management. Discharge plan is outlined in an advance care plan. No change in medications needed. No more benzodiazepines. Assessment & Plan (05/13/2025 11:02 PM EDT): Presented stridors,but improved with benzo and xeponex. Admitted to ICU for close airway watch and benzo administration. Refer to advanced care plan to prevent intubation. No hypoxia or hypercapnia at this time, but the significant distress with any conversation and movement makes him need close monitoring tonight. Does not appear to have an infectious etiology. No lower airway wheeze that would benefit from steroids, episodes wax and wane, escalating with interaction. Per care plan: When patient presents with respiratory distress utilize the follow techniques to assist in prevention of intubation: Remind patient to take deep breath Encourage patient to pant with tongue out Medicate with Ativan *(due to shortage we are using versed) Typical medical workup can still be obtained during this period (CXR and ABG) Review possibility of BIPAP instead of intubation to relieve laryngospasms Review current stressors and if consult should be made for Verify patient compliance of medication administration Assessment & Plan (03/17/2024 9:20 AM EDT): No recent episodes of vocal cord dysfunction or laryngospasm. Has done well on Cymbalta for his panic disorder. Will continue to monitor but hopefully this is a thing of the past. Assessment & Plan (01/16/2022 9:54 AM EDT): No recent exacerbations of VCD. Continue Cymbalta which has made a huge impact on prior flareups. If recurs, could consider resuming as needed Zydis. Assessment & Plan (05/23/2020 11:27 AM EDT): Ongoing difficulty with recurrent episodes of VCD and laryngospasm triggered by patient's anxiety and panic disorder. Encourage patient to continue compliance with antianxiety regimen Alcohol abstinence. We will refill patient's olanzapine to use as needed when develops recurrent panic attacks. Will defer to PCP regarding referrals for speech therapy which may be helpful, as well as ongoing psychiatric follow-up. Assessment & Plan (05/17/2019 4:45 PM EDT): Reviewed techniques for ameliorating laryngeal tension. Given progression to aries laryngospasm and multiple healthcare encounters, recommend resume use of only as needed sublingual olanzapine, 5 to 10 mg only as needed. Assessment & Plan (04/27/2019 1:45 PM EDT): He is under a lot of stress as he is going through a divorce. He had had a long period of time without episodes of laryngospasm up until about 2 weeks ago. Since that time episodes have been increasing in frequency. --Patient has already gone to speech therapy and does utilize some of the techniques learned there. --Continue with as needed IV Lorazepam. Added back SL formulation if able to take. --BiPAP PRN --Appreciate psych consult. BuSpar titrated up. I asked about a long acting PO benzo ie Clonazepam but we didn't want to make too many changes all at once. --C/w Cymbalta and trazodone. Olanzapine discontinued as discussed with psychiatry. --Pt has an upcoming appointment to establish care with a therapist. MUD CAR WORKER to see to help the patient connect with an outpatient psychiatrist. --Continue with treatment of GERD --Case management working to come up with a complex care plan due to recurrent readmissions. Meeting today at 2 pm. 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 Should discuss with Dr. Barkley, his primary care, who he is scheduled to see next week, if any issues. In addition, she discussed with Dr. Barkley either changing his olanzapine to regular tablet or increasing to 10 mg at night, possibly depending on response to higher dose of duloxetine. Assessment & Plan (05/17/2019 4:45 PM EDT): Recurrent worsening episodes with severe anxiety given multiple home stressors. Discussed again consideration for increasing Cymbalta dose. Patient awaiting new therapist, and if not a prescriber, referral to psychiatric nurse or psychiatrist. Also hoping symptoms improve in the near future with resolution of some of the home issues. Posttraumatic stress disorder 03/25/2019 Prostate cancer 02/21/2019 Assessment & Plan (05/20/2025 10:24 AM EDT): S/P radiation therapy. - Per Onc: PET CT scan activity within prostate gland, right-sided pelvic sidewall, left pelvic lymph node activity consistent with metastases. Pt does not want to have repeat radiation. - On abiraterone, azelastine and prednisone at home. Assessment & Plan (05/19/2025 1:54 PM EDT): S/P radiation therapy. - Per Onc: PET CT scan activity within prostate gland, right-sided pelvic sidewall, left pelvic lymph node activity consistent with metastases. Pt does not want to have repeat radiation. - On abiraterone, azelastine and prednisone at home. Assessment & Plan (07/21/2023 9:58 AM EDT): IMPRESSION: Jesus Zepeda is a 73 y.o. male who is here today for management of Prostate cancer. Patient had T1c disease on his initial diagnosis and was treated with radiation therapy. He subsequently developed biochemical recurrence. DISCUSSION: I discussed overall impression, natural history of the disease, prognosis and further management in this regard. Patient has been doing very well on current therapy with significant decline in his PSA. I reassured him about this. I discussed side effects from current therapy. Patient has been tolerating current therapy very well and will continue until disease progression or unacceptable toxicity. RECOMMENDATIONS: Continue current therapy with Eligard injection every 3 months, abiraterone 1000 mg p.o. daily and prednisone 5 mg p.o. twice daily Advised him to be compliant with his every 3-month injections I will follow-up on the labs pending at this time Patient is going to return for a follow-up appointment in 3 months Thank you very much allowing me to participate in his care Laryngospasm 12/16/2018 Overview (12/16/2018): laryngospasm and vocal cord dysfunction due to Sz/panic attacks and possible conversion d/o, and past response to Zyprexa and phenobarb Assessment & Plan (02/13/2023 9:57 AM EDT): Minimal recurrence, currently managed with behavioral management, Cymbalta, massage and Xopenex. Congratulated on avoiding worsening symptoms and need for acute medical intervention. Assessment & Plan (08/12/2021 8:48 AM EDT): No episodes of laryngospasm/vocal cord dysfunction since last visit. No longer has olanzapine which she is used previously. If were to recur, can use lorazepam in its place. Assessment & Plan (11/23/2020 10:47 AM EST): No recent recurrence of laryngospasm. Patient has Zyprexa ODT if needed. Remains on Cymbalta. Congratulated on ongoing alcohol abstinence. Assessment & Plan (12/29/2019 10:39 AM EDT): Multiple ER encounters for panic attacks with secondary laryngospasm. Using increased lorazepam as needed with good benefit. Continue PRN Zyprexa as well. Assessment & Plan (08/23/2019 10:27 AM EST): Multiple hospital encounters for recurrent laryngospasm. Discussed importance of maximizing treatment for chronic anxiety and use of as needed olanzapine before calling EMS. If ineffective, should use 10 mg of olanzapine as needed. Recommend refer back to speech therapy for refresher on techniques to reverse progressive attacks. Assessment & Plan (12/16/2018 8:18 AM EST): No recent exacerbations. Continue aggressive treatment for his underlying anxiety disorder with Cymbalta. Chronic rhinitis 12/16/2018 Overview (12/16/2018): Attributes to CPAP use Assessment & Plan (02/13/2023 9:56 AM EDT): Currently well controlled on Azelastine with occasional use of Flonase. Assessment & Plan (01/16/2022 9:55 AM EDT): Continue Azelastine nasal spray. Assessment & Plan (08/12/2021 8:48 AM EDT): Continue Azelastine daily for chronic rhinitis. Assessment & Plan (11/23/2020 10:47 AM EST): Continue Azelastine as needed. Assessment & Plan (08/23/2019 10:27 AM EST): Continue Azelastine once or twice daily as needed. Assessment & Plan (12/16/2018 8:20 AM EST): Continue Azelastine nasal spray with as needed saline. Anxiety 04/13/2018 Assessment & Plan (05/14/2025 5:30 PM EDT): Continue home cymbalta and trazodone. No indication for benzodiazepines. Will defer to outpatient. Assessment & Plan (05/13/2025 11:02 PM EDT): Continue home cymbalta and trazodone. As needed versed tonight for acute panic episodes. Assessment & Plan (04/27/2019 1:43 PM EDT): Psychiatry following, increased Buspar dose to 30 mg TID today. Prn ativan for anxiety episodes. Ongoing discussions with psychiatry. Assessment & Plan (04/09/2019 5:44 AM EDT): - seems likely is contributing to some degree, will cont as needed lorazepam - cont other chronic meds: duloxetine, olanzapine, trazodone Assessment & Plan (11/12/2018 6:05 PM EST): Continue cymbalta/lexapro Assessment & Plan (05/05/2018 5:45 PM EDT): Continue with the patient's olanzapine. Assessment & Plan (04/14/2018 12:32 PM EDT): Known history of anxiety attacks in the past including blackout. Had difficult time yesterday, see previous note. Today feels well, calm. Still resting tremor. Exam not consistent with Parkinson's. We will DC bronchodilator updraft today, expect improvement continues tomorrow Type 2 diabetes mellitus wit h diabetic mononeuropathy, without long-term current use of insulin 04/12/2018 Assessment & Plan (05/20/2025 10:24 AM EDT): Pt with a history of DM2 maintained on glipizide - HgbA1c 7.5 - Consistent carbohydrate diet - Low-dose sliding scale insulin Assessment & Plan (05/19/2025 1:54 PM EDT): Pt with a history of DM2 maintained on glipizide - Check hemoglobin A1c - Consistent carbohydrate diet - Low-dose sliding scale insulin Assessment & Plan (05/14/2025 5:30 PM EDT): Patient is on home glipizide. [id number]'s will be checked. Insulin sliding scale. I worry about a insulin secretagogue in a 75-year-old gentleman, but will defer diet outpatient for evaluation of appropriateness of this medication. Assessment & Plan (05/14/2025 8:33 AM EDT): >>ASSESSMENT AND PLAN FOR DIABETES WRITTEN ON 08/04/2021 5:10 PM BY CURTIS RANKIN MD Sliding scale insulin and Accu-Cheks requested. Glucose levels okay. Assessment & Plan (05/14/2025 8:33 AM EDT): >>ASSESSMENT AND PLAN FOR DIABETES WRITTEN ON 05/13/2025 11:02 PM BY RAJEEV EUCEDA PA-C, MPH Home glipizide. SSI for now Assessment & Plan (05/14/2025 8:33 AM EDT): >>ASSESSMENT AND PLAN FOR DIABETES WRITTEN ON 04/12/2018 4:50 PM BY JUANITO HAIR PA Metformin held at admission. POCC with ISS Assessment & Plan (05/14/2025 8:33 AM EDT): >>ASSESSMENT AND PLAN FOR DIABETES WRITTEN ON 05/05/2018 5:47 PM BY CURTIS RANKIN MD continue with the patient's metformin at this time. Assessment & Plan (05/14/2025 8:33 AM EDT): >>ASSESSMENT AND PLAN FOR DIABETES WRITTEN ON 11/15/2018 4:56 PM BY DEANDRE LLOYD MD - cont to hold metformin - cont insulin sliding scale Assessment & Plan (05/14/2025 8:33 AM EDT): >>ASSESSMENT AND PLAN FOR DIABETES WRITTEN ON 04/09/2019 5:46 AM BY DEANDRE LLOYD MD - hold metformin, us insulin sliding scale for now Assessment & Plan (05/14/2025 8:33 AM EDT): >>ASSESSMENT AND PLAN FOR DIABETES WRITTEN ON 04/27/2019 1:43 PM BY CARLOS GUERRA PA A1c 6.5. --C/w diabetic diet --Continue with lispro insulin sliding scale. Assessment & Plan (04/19/2024 9:29 AM EDT): LDL should be less than 70 mg/dL A1c should be less than 7 lipids are poorly controlled as mentioned we are starting Crestor 40 and we will recheck his lipids in 4 months Assessment & Plan (08/31/2023 10:54 AM EST): A1c by the guidelines should be less than 7 and LDL is less than 70 mg/dL. Parkinson's disease 12/09/2017 Assessment & Plan (04/19/2024 9:29 AM EDT): Present but stable Depressive disorder 12/09/2017 Carcinoma of prostate 12/09/2017 Assessment & Plan (05/13/2025 11:48 PM EDT): Follows with Dr Luis. S/p radiation therapy. PET CT scan does show activity within the prostate gland itself as well as a right-sided pelvic sidewall and left pelvic lymph node activity consistent with metastases. Did not want referral to tertiary center for possible re irradiation. Continue abiraterone and prednisone. Atrial fibrillation 12/09/2017 Assessment & Plan (06/23/2025 11:11 AM EDT): EKG today showing sinus rhythm at rate [...] reason. I am reordering the MCT monitor. Assessment & Plan (05/20/2025 10:24 AM EDT): Patient with history of atrial fibrillation on Xarelto and metoprolol. CHADS-VASc = 4 (4.8% risk of stroke per year) Hypertension (1 point) Diabetes (1 point) Vascular disease (1 point) Age 65-74 (1 point) - Metoprolol stopped due to bradycardia. Assessment & Plan (05/19/2025 1:54 PM EDT): Patient with history of atrial fibrillation on Xarelto and metoprolol. CHADS-VASc = 4 (4.8% risk of stroke per year) Hypertension (1 point) Diabetes (1 point) Vascular disease (1 point) Age 65-74 (1 point) Assessment & Plan (05/14/2025 5:30 PM EDT): Continue Xarelto. Rate controlled well at this time. No indication for monitoring. Assessment & Plan (05/13/2025 11:48 PM EDT): Continue Xarelto. Per documentation the patient has questionable compliance with this along with all of his medications, but at least he is pick it up from the pharmacy unlike his antihypertensives. Assessment & Plan (12/06/2024 11:45 AM EST): I explained to him the necessity for embolic protection of him taking oral anticoagulation he is going back on his Xarelto Assessment & Plan (06/24/2024 9:09 AM EDT): He is on oral anticoagulation and Plavix given the above mentioned situation of atrial fibrillation and recent drug-eluting stent placement Assessment & Plan (04/19/2024 9:29 AM EDT): He is completely asymptomatic and should be on blood thinners none are listed so we will call him to find out what is going on. Assessment & Plan (07/29/2022 2:34 PM EDT): He has a history for paroxysmal atrial fibrillation is not on anticoagulation due to his choice. He is in sinus rhythm here in the office rate controlled at 90 bpm. He is not on any antiarrhythmics but is on metoprolol tolerating this well. Assessment & Plan (09/03/2021 10:21 AM EST): As mentioned, there is talk of atrial fibrillation and declining anticoagulation in his note. I do not actually see any evidence that he had atrial fibrillation. I reviewed his records from [facility] as well. No anticoagulation. Mild intermittent asthma without complication Assessment & Plan (06/24/2024 9:09 AM EDT): Present but stable. Assessment & Plan (03/17/2024 9:20 AM EDT): No recent asthma symptoms. Continue Xopenex as needed. No need to continue maintenance ICS/LABA. Assessment & Plan (02/13/2023 9:56 AM EDT): Stable with minimal to no asthma symptoms in over a year off ICS/LAMA. Uses ESTUARDO therapy mainly for symptoms of VCD/laryngospasm. Would continue as needed Xopenex for now. If develops increased asthma symptoms, can always resume ICS/LABA. Assessment & Plan (01/16/2022 9:54 AM EDT): Significant improvement in asthma, technically no mild intermittent. Continue as needed Xopenex. Prescribed Brio Ellipta to keep on hand. Given excess cost, patient may not be able to afford, and thus may will call to request a sample if feels need to resume. Assessment & Plan (08/12/2021 8:47 AM EDT): History of moderate persistent asthma though off all inhalers for the past year almost, suggesting may have truly mild intermittent asthma. Question the if typically triggered by URIs or in the past pneumonia versus confused in the setting of vocal cord dysfunction. We will continue to monitor closely off all inhalers for this time. Assessment & Plan (11/23/2020 10:47 AM EST): Currently stable off all inhalers. Severity of asthma has always remained difficult to assess given concurrent vocal cord dysfunction. Discussed concern that may develop active asthma symptoms with spring pollen season. Gave patient alternative to either monitor closely and resume Breo Ellipta with first sign of symptoms, or start preventatively in late December. Continue Xopenex as needed. Plan repeat full PFTs in 6 months with Xopenex bronchodilator. Assessment & Plan (05/23/2020 11:27 AM EDT): Currently well controlled. We will continue high-dose Brio with PRN Xopenex. Encourage patient to avoid bronchodilators with clear episodes of VCD. Assessment & Plan (12/29/2019 10:39 AM EDT): Remains generally well controlled. Continue Breo, montelukast, and PRN Xopenex. In future, could consider discontinuing montelukast to ensure not causing any mood disruption, though at this point would not make any changes. Assessment & Plan (08/23/2019 10:25 AM EST): Clinically stable. Continue high-dose Brio Ellipta. Can use Xopenex MDI only as needed. Nebs as needed. High-dose flu vaccine today. Assessment & Plan (05/17/2019 4:46 PM EDT): No evidence of active asthma on exam today. Continue high-dose Brio Ellipta and as needed Xopenex. Assessment & Plan (04/27/2019 1:42 PM EDT): Treating for possible mild asthma exacerbation. Patient continues to complain of shortness of breath and is noted to have persistent sinus tachycardia on the monitor. On exam he is not wheezing. He does have a history of PE approximately 2 years ago per his recall. D-dimer was checked and was elevated; CTPA negative for PE. --Combivent QID. --Finishes 5 day course Prednisone 40mg today. --starting inhaled steroid, advair. Assessment & Plan (12/16/2018 8:19 AM EST): Resolved asthma exacerbation in the setting of concurrent influenza A infection. Lungs clear on exam. Continue high-dose Brio Ellipta with as needed Xopenex HFA or Atrovent nebs. Patient instructed K and use the latter 2 therapies as symptoms directed. Assessment & Plan (04/12/2018 4:48 PM EDT): Home inhalers were held during inpatient management. Treatment as above. Assessment & Plan (10/19/2017 9:14 AM EST): Lung exam clear today. Continue Breo Ellipta daily. Encouraged to try to decr use of Xopenex, OK to use neb. Call if any worsening. History of obstructive sleep apnea 10/19/2017 Overview (03/17/2024): Since 12/20 (13 mgH20), off CPAP since approximately 2020 Assessment & Plan (03/17/2024 9:19 AM EDT): Sleeping well does not feel that his sleep apnea is currently active. I suggested a compromise being checking an overnight oximetry study. If there is evidence of episodic desaturations, would strongly recommend return for repeat sleep eval. Assessment & Plan (11/17/2023 10:53 AM EST): Present but he gets treatment for it Assessment & Plan (08/31/2023 10:54 AM EST): Present but treated Assessment & Plan (02/13/2023 9:57 AM EDT): Reports being off CPAP for the last 2 years. Encouraged follow-up with sleep medicine services. Assessment & Plan (08/12/2021 8:47 AM EDT): Reports discontinuing CPAP since 2019. Strongly encouraged to follow-up with sleep medicine services of [facility] to ensure other indications other than sleep quality. Assessment & Plan (12/29/2019 10:38 AM EDT): Using CPAP as directed. Encouraged to continue strict cleaning. Assessment & Plan (08/23/2019 10:25 AM EST): Continue sleep apnea treatment with CPAP. Assessment & Plan (05/17/2019 4:46 PM EDT): Continue home CPAP. Assessment & Plan (12/16/2018 8:19 AM EST): Congratulated on ongoing good compliance with his CPAP. Assessment & Plan (11/13/2018 7:35 PM EST): - cont nighttime CPAP Assessment & Plan (05/05/2018 5:47 PM EDT): Usees cpap Assessment & Plan (04/12/2018 4:48 PM EDT): Will consult respiratory for home CPAP settings Assessment & Plan (10/19/2017 9:07 AM EST): Encouraged to call Sleep medicine back if any worsening of CPAP tolerance. Hyperlipidemia 10/19/2017 Assessment & Plan (05/14/2025 5:30 PM EDT): Home statin therapy to continue. Assessment & Plan (05/13/2025 11:48 PM EDT): Home statin Assessment & Plan (12/06/2024 11:46 AM EST): In addition he stopped his statin agent which we put him back on today we will recheck his lipids in 5 months time I will see him in 6 months time Assessment & Plan (08/13/2021 2:19 PM EDT): Patient reports that his lipid panel is followed by PCP and has been stable. Continue pravastatin. Assessment & Plan (04/12/2018 4:49 PM EDT): Unclear if patient is still on a statin as this is also listed on his allergy list. He does see Dr. Hollins as an outpatient with a history of atrial fibrillation and prior cardiac ablation. He also had a cardiac catheterization in approximately 2012 visit showed no coronary artery disease. Normal ETT in 07/2016. Unclear if CAD has since been diagnosed. Chronic gastroesophageal reflux disease 10/19/19 18 Assessment & Plan (04/12/2018 4:49 PM EDT): Continue PPI. Omeprazole not on formulary, will substitute pantoprazole. Assessment & Plan (10/19/2017 9:05 AM EST): Ongoing Symptoms and atypical chest pains, question esophageal spasm. Increase omeprazole to 40mg in the AM on an empty stomach. Refer to GI (Gina) for likely EGD. Resolved Problems Problem Noted Date Diagnosed Date Resolved Date Paresthesia of upper limb 05/04/2025 Shortness of breath 12/02/2022 05/13/20 Assessment & Plan (11/17/2023 10:54 AM EST): Completely absent at this time he feels well Chest pain 04/25/2019 05/14/2025 Assessment & Plan (12/06/2024 11:46 AM EST): No further chest pain he does have mild aortic stenosis we will check an echo once a year Assessment & Plan (06/26/2022 2:04 PM EDT): Continues to have chest discomfort. He has a long history for having atypical chest pain. He has had multiple emergency room visits for this chest pain in the recent weeks and all have resulted with no acute coronary syndrome. Ended that he undergo an outpatient nuclear stress test which has been ordered. He is quite concerned that he is going to . He tells me he does not feel well as good as he did in October. He tells me he is more tired, has more right and left arm pain in addition to right chest pain. He also reports having painful legs. He should have his stress test as scheduled. We did discuss today that it is likely his chest pain is atypical chest pain and not cardiac related. He was reassured that it is okay to wait for his stress test. He tells me he is unable to take metoprolol due to this making his blood pressure increase and he is no longer taking pravastatin as he states this makes his arms and legs feel worse. We will see him in follow-up after stress test has been completed. We did discuss him following up with pulmonary to get a properly fitting CPAP device so that he can use this. We also discussed the importance of reducing his sodium in his diet as well as sodium increasing his blood pressure. It is possible that his blood pressure being elevated quite high is giving him symptoms. His blood pressure is well controlled today at 130/88 and he will remain on his medications as he is. We will see him in follow-up after his stress test has been completed Assessment & Plan (01/16/2022 9:55 AM EDT): Atypical chest pain, extensive cardiac work-up with no evidence for cardiovascular cause. Nonetheless multiple ED visits. Appears to respond to lorazepam, the patient no longer taking. Does recall some benefit from nitroglycerin, suggesting possible esophageal spasm as an etiology. We will prescribe a lower dose nitroglycerin to try and in the hopes of preventing some of his emergency room encounters. Assessment & Plan (09/03/2021 10:21 AM EST): He has ongoing chest discomfort which has been present for years in reviewing his notes. He actually had a negative catheterization years ago. He recently had a stress test which was completely normal. His chest pain is not so bad now. I have reassured him. Follow-up 1 year. Assessment & Plan (08/13/2021 2:22 PM EDT): Patient reports that his episodic left-sided chest pain has persisted since discharge from [facility]. He states that he is motivated to get a stress test done to get to the bottom of this , he was very anxious in the hospital and feels that his anxiety contributed to the issues during the attempted inpatient stress test. He is motivated to reattempt this. We discussed the possibility of an exercise stress test. Patient does not feel that he will be able to walk for more than a minute or two on a treadmill (due to deconditioning). Pharmacological nuclear stress test ordered, patient may be a good candidate for a walking regadenoson. Assessment & Plan (08/05/2021 12:42 PM EDT): Patient presented to the ED with severe chest pain. He has had it throughout the day. Troponins were negative. Cardiology was consulted. Nuclear stress test was ordered. The patient completed his rest images but when he arrived in lab to get injection for stress portion he was shaking. He was awake during that time rapid response was called. Many possible causes for his symptoms were considered including seizure hypoglycemia. Ultimately he was thought to most likely have a panic attack. It resolved without intervention but stress test canceled Cardiology suggested completing stress test as an outpatient-negative [facility] stress 2019 patient chest pain has resolved without intervention in the hospital Assessment & Plan (04/27/2019 1:47 PM EDT): Had nuclear stress test scheduled for 04/26 but had laryngospasm episode that morning requiring ativan and BiPap. Cancelled nuc. Consulted cards. Dr. Rosario found patient's records, had cath 10 years ago, nuc 3 years ago. Will have pharm nuc today Weds am 04/27. Called by staff that patient was tremulous but they were persisting with testing. Acute respiratory failure 04/22/2019 Respiratory distress 04/09/2019 025 Assessment & Plan (04/09/2019 5:52 AM EDT): - episode of vocal cord dysfunction seems most likely given the hx,cont supportive care with budesonide, xopenex, ipratropium as Dr. Bone recommended, will need f/u with Dr. Huber (his pulmologist) - would hold off on further steroids for now as feel unlikely this is asthma exacerbation - hold off on abx for now - f/u final CXR read, if develops cough get sputum - monitor closely off CPAP, if mental status change repeat abg - currently not hypoxic - will request pulm consult Palpitations 04/04/2019 05/13/2025 Assessment & Plan (07/29/2022 2:34 PM EDT): Denies palpitations at this time. 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 I do not actually find any documentation that he had atrial fibrillation. No recent recurrence of palpitations. Follow-up 1 year. History of pulmonary embolism 04/04/2019 05/14/2025 Acute respiratory failure 04/03/2019 Acute respiratory failure with hypoxia 11/12/2018 11/16/2018 Assessment & Plan (11/15/2018 4:56 PM EST): - patient of Dr. Huber - - culture shows op radames - cont q4h Xopenex nebulizers - cont guaifenesin -Tamiflu 75 mg p.o. twice daily - cont morphine for dyspnea -Hypoxia has resolved still increased work of breathing Influenza A 11/12/2018 12/29/2019 Assessment & Plan (11/13/2018 7:36 PM EST): - cont Tamiflu 75mg po bid Acute renal failure 11/12/2018 11/16/19 Assessment & Plan (11/14/2018 5:15 PM EST): - off IVF now creatinine stable Other chest pain 05/04/2018 05/05/2018 Assessment & Plan (05/04/2018 3:15 AM EDT): Given the patient's history, he will be admitted for chest pain rule out. While the differential diagnosis for his chest pain is broad, the 2 primary reasons would be related to his cardiac history or related to his pulmonary history. The pleuritic nature of the patient's chest pain makes me think that it is less likely related to cardiac and may be more related to pleurisy. He has recently been on a taper of steroids for an upper respiratory infection and it is a possibility that the taper occurred too quickly resulting in pulmonary pleuritic chest discomfort. Either way, the patient will be admitted to telemetry with the following plan. We will perform an EKG in the morning. Will obtain cardiology consultation. Serial troponins will be obtained. Lipid testing as well as echocardiogram will be deferred at this time. The patient has an allergy to aspirin and therefore this will be held as well at this time. We will continue with the patient's propranolol and other cardiac medications tomorrow based off of cardiology recommendations. Given the fact that the patient has no changes on his EKG, and no laboratory evidence of myocardial injury, I will hold off on any kind of heparinization. Pneumonia 04/12/2018 05/04/2018 Assessment & Plan (04/14/2018 12:31 PM EDT): Patient feels much improved today. No air hunger, no panic attacks, no shortness of breath. Remains afebrile. Still has slight tremors which she attributes to the updrafts which were changed last night to levalbuterol. We will DC IV ceftriaxone, continue only on Zithromax by mouth. No more steroids, DC bronchodilators. Monitor overnight. Possible discharge tomorrow if continued clinically stable Seizure 12/09/2017 05/13/2025 Encounters Date Type Department Care Team Description 06/27/2025 Telephone [facility] at [address] [address] Mary Willard, DOUGHNUT MACHINE OPERATOR HELPER 06/27/2025 [facility] [address] [address] Aleja Trujillo, DOUGHNUT MACHINE OPERATOR HELPER Medication Refill 06/23/2025 6:49 PM EDT - 06/24/2025 2:01 AM EDT Emergency [facility] [address] [place] [phone] Ly Cho MD Discharge Disposition: Home or Self Care 06/23/2025 10:30 AM EDT Office Visit [facility] [address] [place] [address] [address] Floor, [address] [place] [address] Gene Oreilly CNP Atrial fibrillation (Primary Dx); Paroxysmal atrial fibrillation; Chest pain, unspecified type; 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 06/23/2025 Procedure [facility] Scan [address] [address] 06/23/[address] [address] 06/23/2025 Telephone [facility]monary, Allergy [facility] Critical Care Medicine [address] [place] [address] [place] [address] Manpreet Huber MD 06/14/2025 1:30 AM EDT Home Care Visit [facility] [address] [place] [phone] Trina Plummer, MARCELINA SN OASIS DISCHARGE VISIT 06/10/2025 2:23 AM EDT - 06/10/2025 5:26 AM EDT Emergency [facility] Emergency [address] [place] [phone] Marlon Rabago MD Discharge Disposition: Home or Self Care 06/06/2025 1:30 AM EDT Home Care Visit [facility] [address] [place] [address] Trina Plummer, MARCELINA SN HOME VISIT 05/30/2025 8:45 AM EDT Home Care Visit [facility] [address] [place] [address] Estrella Grayson, MARCELINA SN HOME VISIT 05/23/2025 10:30 AM EDT Home Care Visit [facility] [address] [place] [address] Kim Larsen, MARCELINA SN OASIS RESUMPTION OF CARE ([place]) 05/20/2025 Procedure Pass [facility] [address] [place] [address] 05/19/2025 7:08 AM EDT - 05/21/2025 2:32 PM EDT Hospital Encounter [facility] [address] [place], [place] [phone] Ivis Carey MD Arepally, Sandeep, MD Vela Parada, Xu Harris MD Discharge Disposition: Home-Health Care Svc 05/19/2025 Home Care Visit [facility] [address] [place] [address] Emily Estevez RN CASE COMMUNICATION 05/18/2025 Home Care Visit [facility] [address] [place] [address] Emily Estevez RN TELEPHONE ENCOUNTER 05/16/2025 Episode Documentation Update [facility] [address] [place] [address] Salma Camargo 05/16/2025 Home Care Visit [facility] [address] [place] [address] Courtney Raygoza, MARCELINA SN OASIS TRANSFER 05/16/2025 Home Health Resumption of Care Planning [facility] [address] [place] [address] Megan Simmons RN 05/13/2025 4:24 PM EDT - 05/16/2025 2:00 PM EDT Hospital Encounter [facility] [address] [place] [phone] Manuel Villegas MD Ansa, Francis B, MD Oliveira, Paulo J, MD Discharge Disposition: Home or Self Care 05/11/2025 9:30 AM EDT Home Care Visit [facility] [address] [place] [phone] Sourav Adler, PT PT HOME VISIT 05/10/2025 11:30 AM EDT Home Care Visit [facility] [address] [place] [phone] Estrella Grayson RN SN HOME VISIT 05/09/2025 12:16 PM EDT - 05/09/2025 5:33 PM EDT Emergency [facility] [address] [place] [id number] Guerrero Sanders MD Discharge Disposition: Home or Self Care 05/09/2025 9:30 AM EDT Home Care Visit [facility] [address] [place] [phone] Sourav Adler, PT PT HOME VISIT 05/09/2025 Transcribe Orders [facility] Neurology [address] [place] [address] Venus Wang MA Anesthesia of skin (Primary Dx); Paresthesia of skin 05/05/2025 11:24 AM EDT - 05/05/2025 11:59 PM EDT Hospital Encounter [facility], X-Ray - [facility] [address] [place] [phone] Fredrick Barkley DO Discharge Disposition: Home or Self Care 05/05/2025 Transcribe Orders Virtual Department [address] [place] [phone] Bigda, Fredrick A, DO Cervicalgia (Primary Dx) 05/05/2025 Transcribe Orders Virtual Department [address] [place] [phone] Bigda, Fredrick A, DO Anesthesia of skin (Primary Dx); Paresthesia of skin 05/05/2025 Ancillary Orders Virtual Department [address] [place] [phone] Bigda, Fredrick A, DO Pain (Primary Dx) 05/05/2025 Ancillary Orders [facility], X-Ray - [facility] [address] [place] [phone] Bigda, Fredrick A, DO Pain (Primary Dx) 05/05/2025 Ancillary Orders [facility] Department [address] [place] [phone] Bigda, Fredrick A, DO Anesthesia of skin (Primary Dx); Paresthesia of skin 05/04/2025 3:00 PM EDT [facility] [address] [place] [address] Sourav Adler, PT PT HOME VISIT 05/03/2025 1:30 AM EDT Home Care Visit [facility] [address] [place] [address] Estrella Grayson, MARCELINA SN HOME VISIT 05/03/2025 Transcribe Orders Virtual Department [address] [place] [phone] MariluzdaFredrick A, DO Anesthesia of skin (Primary Dx); Paresthesia of skin 05/02/2025 9:30 AM EDT [facility] [address] [place] [address] Sourav Adler, PT PT HOME VISIT 04/27/2025 1:30 PM EDT [facility] [address] [place] [address] Morris Romero, MARCELINA SN HOME VISIT 04/27/2025 10:00 AM EDT [facility] [address] [place] [address] Sourav Adler, PT PT HOME VISIT 04/27/2025 Telephone [facility] [address], [address] [place] [address] Jesus Malhotra DO 04/25/2025 3:30 PM EDT Home [facility] Visit [facility] [address] [place] [phone] Sourav Adler, PT PT HOME VISIT 04/24/2025 12:30 PM EDT [facility] [address] [place] [phone] Estrella Grayson, MARCELINA SN HOME VISIT 04/20/2025 12:30 PM EDT Home Care Visit [facility] [address] [place] [phone] Sandra Soto LPN SEGMENT[employer] INST[employer]ER HOME VISIT 04/19/2025 10:00 AM EDT Home Care Visit [facility] [address] [place] [phone] Jody Reyes, PT PT EVALUATION 04/19/2025 Refill [facility] [address] Floor, [address] [place] [address] Jesus Malhotra, DO Medication Refill 04/17/2025 Plan of Care Documentation [facility] [address] [place] [address] 04/16/2025 11:00 AM EDT [facility] Visit [facility] [address] [place] [address] Kim Larsen, RN SN OASIS START OF CARE (SOC) 04/15/2025 Home Care Visit [facility] [address] [place] [address] Mery Rush, RN CASE COMMUNICATION 04/13/2025 1:00 PM EDT Home Care Visit [facility] [address] [place] [address] Doreen Gomez, RN CASE COMMUNICATION 04/13/2025 Home Care Visit [facility] [address] [place] [address] Emily Estevez RN CASE COMMUNICATION 04/12/2025 Orders Only [facility] [address] [place] [address] Homehealth, Interface ProviderMD 04/04/2025 Telephone [facility] [place] at [address] [address] Alfonzo Luis, 03/31/2025 Telephone [facility] [address] [address] Alfonzo Luis, DO from Last 3 Months Immunizations Immunization Administration Dates Next Due COVID-19 (Pre-08/03) Moderna Vaccine, mRNA, PF 03/06/2021,02/06/2021 Influenza High-Dose Quadriva lent Preservative Free IM 07/16/2022,08/05/2021 Influenza High-Dose Trivalen t Preservative Free IM 08/23/2019,07/08/2017,06/23/2016 Influenza Quadrivalent w/ Preservative IM 2021,08/02/2021 Influenza Trivalent Adjuvant ed Preservative free IM 07/28/2018 Influenza, Unspecified Formulation 08/05/2021, Family History Medical History Relation Comments Alcohol abuse Father Breast cancer Mother Cancer Sibling 1 Diabetes mellitus Sibling 1 Relation Status Comments Father Mother Sibling 1 Sibling 2 Social History Tobacco Use Types Packs/Day Years [...] End Date retired, worked 34 yrs at [employer] Not on file Not on file Not on file Last Filed Vital Signs Vital Sign Reading Time Taken Comments Blood Pressure 123/56 06/24/2025 1:15 AM EDT Pulse 85 06/24/2025 1:15 AM EDT Temperature 36.7 C (98.1 F) 06/24/2025 1:15 AM EDT Respiratory Rate 17 06/24/2025 1:15 AM EDT Oxygen Saturation 96% 06/24/2025 1:15 AM EDT Inhaled Oxygen Concentration 21% 04/26/2019 7 :37 PM EDT Weight 105.7 kg (233 lb) 06/23/2025 10:58 PM EDT Height 177.8 cm (5' 10 ) 06/23/2025 10:58 PM EDT Body Mass Index 33.43 06/23/2025 10:58 PM EDT Plan of Treatment Upcoming Encounters Date Type Department Care Team (Late st Contact Info) Description 06/23/2025 Procedure Pass Event Monitor [address] [place] [address] 07/12/2025 8:30 AM EDT Appointment Non-Invasive Cardiology [address] [place] [address] Gene Oreilly, BOOTH OPERATOR [address] [place] [address] 07/21/2025 9:15 AM EDT Appointment Event Monitor [address] [place] [address] Gene Oreilly, BOOTH OPERATOR [address] [place] [phone] 09/05/2025 9:30 AM EST Office Visit [facility], Allergy [facility] Critical [facility] Medicine [address] [facility] [place] [address] Manpreet Huber MD [address] [facility] [address] [place] [address] 09/25/2025 11:00 AM EST Office Visit [facility] [address], [address] [place] [address] Gene Oreilly, BOOTH OPERATOR [address] [place] [phone] [email or web address] Maintenance Due Date Last Done Comments Adult Td,Tdap Booster 1950 HEPATITIS C SCREENING 1969 PNEUMOCOCCAL VACCINES (50+ years) (1 of 2 - PCV) 1970 ZOSTER VACCINES (1 of 2) 1970 COLOGUARD 02/27/1996 COLONOSCOPY 02/27/1996 COLORECTAL CANCER SCREENING 02/27/1996 FIT TEST 02/27/1996 FOBT 02/27/1996 SIGMOIDOSCOPY 02/27/1996 VIRTUAL COLONOSCOPY 02/27/1996 RSV VACCINE (1 - Risk 60-74 years 1-dose series) 2011 DIABETIC EYE EXAM 09/09/2017 DEPRESSION SCREENING 09/02/2023 09/02/2022 INFLUENZA VACCINE (#1) 2025 , 07/16/2022, 08/05/2021, Additional history exists COVID-19 VACCINE (2024- season) 2025 03/06/2021, 02/06/2021 HEMOGLOBIN A1C 11/20/2025 05/20/2025, 05/0 10/2023, 04/24/2019 BLOOD PRESSURE 12/21/2025 06/23/2025 CREATININE LEVEL 06/23/2026 06/23/2025, , 05/21/2025, Additional history exists POTASSIUM LEVEL 06/23/2026 06/23/2025, 05/14, 05/21/2025, Additional history exists SMOKING STATUS SCREENING (Once After 26 Yrs) Completed 06/23/2025 HEPATITIS A VACCINES Aged Out No long er eligible based on patient's age to complete this topic HIB VACCINES Aged Out No longer eligi ble based on patient's age to complete this topic MENINGOCOCCAL VACCINES (ACWY) Aged Out No longer eligible based on patient's age to complete this topic MENINGOCOCCAL VACCINES (B) Aged Out N o longer eligible based on patient's age to complete this topic Goals Goal Patient Goal Type Associated Problems [...] divorce Current Homecare: Patient is followed by [facility] [employer] Supervisor Nancy who is working to connect patient with home [employer] and services. On Arrival to ED: When [...] from ED: Send Case Management Consult in [facility] to follow up that homecare [...] the community. Plan SW to connect with MUD CAR WORKER to determine if appointment has been made [...] on 04/27/2019 with Ute alcantar CM , Carlos GARCIA, Romana Bernardo SW, Kelsie Musa CM Medical Devices Implanted Type Area Continuous Improvement Coach Device Identifier Shelf Expiration Date Model / Serial / Lot Spine Description:spinal fusion Procedures Procedure Name Priority Date/Time Associated Diagnosis Comments CT ANGIO ABDOMEN/PELVIS WITH AND WITHOUT CONTRAST Routine 06/23/2025 10:[address] ANGIO CHEST WITH AND WITHOUT CONTRAST Routine 06/23/2025 10:51 PM EDT ECG 12-LEAD STAT 06/23/2025 10:06 PM EDT XR CHEST PA AND LATERAL 2 VIEWS Routine 06/23/2025 9:28 PM EDT TROPONIN STAT 06/23/2025 5:03 PM EDT TROPONIN STAT 06/23/2025 3:58 PM EDT BASIC METABOLIC PANEL STAT 06/23/2025 3:58 PM EDT CBC AND DIFFERENTIAL STAT 06/23/2025 3:58 PM EDT ECG 12-LEAD STAT 06/23/2025 3:32 PM EDT TROPONIN STAT 06/10/2025 1:45 AM EDT TROPONIN STAT 06/10/2025 12:39 AM EDT BASIC METABOLIC PANEL STAT 06/10/2025 12:39 AM EDT CBC AND DIFFERENTIAL STAT 06/10/2025 12:39 AM EDT ECG 12-LEAD STAT 06/10/2025 12:08 AM EDT POCT GLUCOSE Routine 05/21/2025 12:17 PM EDT POCT GLUCOSE Routine 05/21/2025 8:09 AM EDT FOLATE Routine 05/21/2025 7:14 AM EDT VITAMIN B12 Routine 05/21/2025 7:14 AM EDT RETICULOCYTES Routine 05/21/2025 7:14 AM EDT HAPTOGLOBIN Routine 05/21/2025 7:14 AM EDT LDH Routine 05/21/2025 7:14 AM EDT MAGNESIUM Routine 05/21/2025 7:14 AM EDT BASIC METABOLIC PANEL Routine 05/21/2025 7:14 AM EDT CBC Routine 05/21/2025 7:14 AM EDT POCT GLUCOSE Routine 05/20/2025 7:46 PM EDT POCT GLUCOSE Routine 05/20/2025 4:44 PM EDT TTE COMPREHENSIVE W/ LVO CONTRAST Required for discharge 05/20/2025 2:10 PM EDT Heart failure, unspecified HF chronicity, unspecified heart failure type POCT GLUCOSE Routine 05/20/2025 11:48 AM EDT POCT GLUCOSE Routine 05/20/2025 7:47 AM EDT LIPID PANEL Routine 05/20/2025 7:37 AM EDT HEMOGLOBIN A1C Routine 05/20/2025 7:37 AM EDT FERRITIN Routine 05/20/2025 7:37 AM EDT IRON AND IRON BINDING CAPACITY Routine 05/20/2025 7:37 AM EDT TSH WITH REFLEX Routine 05/20/2025 7:37 AM EDT CBC AND DIFFERENTIAL Routine 05/20/2025 7:37 AM EDT PHOSPHORUS Routine 05/20/2025 7:37 AM EDT MAGNESIUM Routine 05/20/2025 7:37 AM EDT BASIC METABOLIC PANEL Routine 05/20/2025 7:37 AM EDT POCT GLUCOSE Routine 05/19/2025 7:54 PM EDT POCT GLUCOSE Routine 05/19/2025 4:56 PM EDT ECG 12-LEAD STAT 05/19/2025 10:12 AM EDT TROPONIN STAT 05/19/2025 10:04 AM EDT URINALYSIS W/REFLEX URINE CULTURE STAT 05/19/2025 9:47 AM EDT NT-PROBNP Routine 05/19/2025 8:30 AM EDT TROPONIN STAT 05/19/2025 8:30 AM EDT LACTIC ACID (LACTATE) STAT 05/19/2025 8:30 AM EDT MAGNESIUM STAT 05/19/2025 8:30 AM EDT LFTS (HEPATIC PANEL) STAT 05/19/2025 8:30 AM EDT BASIC METABOLIC PANEL STAT 05/19/2025 8:30 AM EDT CBC AND DIFFERENTIAL STAT 05/19/2025 8:30 AM EDT XR CHEST PORTABLE Routine 05/19/2025 8:2 8 AM EDT POCT GLUCOSE Routine 05/19/2025 7:29 AM EDT ECG 12-LEAD STAT 05/19/2025 7:09 AM EDT POCT GLUCOSE Routine 05/16/2025 11:26 AM EDT POCT GLUCOSE Routine 05/16/2025 7:51 AM EDT POCT GLUCOSE Routine 05/15/2025 9:06 PM EDT POCT GLUCOSE Routine 05/15/2025 4:19 PM EDT POCT GLUCOSE Routine 05/15/2025 8:21 AM EDT POCT GLUCOSE Routine 05/14/2025 8:14 PM EDT POCT GLUCOSE Routine 05/14/2025 5:34 PM EDT POCT GLUCOSE Routine 05/14/2025 12:11 PM EDT POCT GLUCOSE Routine 05/14/2025 8:13 AM EDT PROCALCITONIN Routine 05/14/2025 7:13 AM EDT PHOSPHORUS Routine 05/14/2025 7:13 AM EDT MAGNESIUM Routine 05/14/2025 7:13 AM EDT CBC AND DIFFERENTIAL Routine 05/14/2025 7:13 AM EDT BASIC METABOLIC PANEL Routine 05/14/2025 7:13 AM EDT POCT GLUCOSE Routine 05/14/2025 5:05 AM EDT POCT GLUCOSE Routine 05/14/2025 12:29 AM EDT MRSA PCR SCREEN Routine 05/13/2025 11:51 PM EDT POCT GLUCOSE Routine 05/13/2025 11:50 PM EDT TROPONIN STAT 05/13/2025 6:14 PM EDT SEDIMENTATION RATE (ESR) Routine 05/13/2025 5:04 PM EDT C-REACTIVE PROTEIN Routine 05/13/2025 5: 04 PM EDT VENOUS BLOOD GAS STAT 05/13/2025 5:04 PM EDT PT-INR STAT 05/13/2025 5:04 PM EDT LFTS (HEPATIC PANEL) STAT 05/13/2025 5:04 PM EDT NT-PROBNP STAT 05/13/2025 5:04 PM EDT TROPONIN STAT 05/13/2025 5:04 PM EDT BASIC METABOLIC PANEL STAT 05/13/2025 5:04 PM EDT CBC AND DIFFERENTIAL STAT 05/13/2025 5:04 PM EDT XR CHEST PORTABLE Routine 05/13/2025 4:4 9 PM EDT COVID PANDEMIC RESPIRATORY VIRAL ORDER (PRO) STAT 05/13/2025 4:46 PM EDT ECG 12-LEAD STAT 05/13/2025 4:38 PM EDT ECG 12-LEAD STAT 05/09/2025 3:31 PM EDT XR CERVICAL SPINE 2-3 VIEWS Routine 05/05/2025 11:36 AM EDT Pain from Last 3 Months Results * CT ANGIO ABDOMEN/PELVIS WITH AND [...] * ECG 12-LEAD (06/23/2025 10:06 PM EDT) Only the most recent of7 resultswithin the time period is included. Ventricular Rate EKG/MIN 74 BPM [facility] Atrial Rate 74 BPM [facility] GA Interval 222 ms [facility] QRS Duration 80 ms [facility] QT Interval 414 ms [facility] QTC Interval 459 ms [facility] P [place] 9 degrees [facility] R Wave [place] -13 degrees [facility] T Wave [place] 10 degrees [facility] 06/23/2025 10:0 6 PM EDT 06/24/2025 11:23 AM EDT Narrative [facility] - 06/24/2025 11:23 AM EDT Sinus rhythm with 1st degree A-V block Inferior infarct (cited on or before 02-Apr-2010) Abnormal ECG When compared with ECG of 23-Jun-2025 15:32, GA interval has increased Vent. rate has decreased [...] clinician's provided indication for this examination in [facility]: Pain COMPARISON: XR CHEST PORTABLE FINDINGS: Devices/Tubes/Lines: None. Lungs: No focal consolidation or pulmonary edema. Pleura: No pleural effusion or pneumothorax. Heart/Mediastinum: Normal heart and mediastinum. Bones/Soft Tissues: No significant abnormality. Procedure Note Jaylene Sarmiento MD - 06/23/2025 XR CHEST PA AND LATERAL 2 VIEWS Referring clinician's provided indication for this examination in [facility]:Pain COMPARISON: XR CHEST PORTABLE FINDINGS: Devices/Tubes/Lines: None. Lungs: No focal consolidation or pulmonary edema. Pleura: No pleural effusion or pneumothorax. Heart/Mediastinum: Normal heart and mediastinum. Bones/Soft Tissues: No significant abnormality. IMPRESSION: No acute abnormality. us Karen Pena PA-C IMG XR CHEST Final Result * Troponin (06/23/2025 5:03 PM EDT) Only the most recent of8 resultswithin the time period is included. Troponin-T, HS Gen5 13 0 - 14 ng/L [facility] Blood 06/23/2025 5:03 PM EDT 06/23/2025 5:25 PM EDT us Wilber Davis PA-C LAB BLOOD ORDERABLES Final Res ult [facility] [address] [place] [address] * (ABNORMAL) CBC and differential (06/23/2025 3:58 PM EDT) Only the most recent of6 resultswithin the time period is included. WBC 7.37 4.00 - 11.00 K/uL [facility] RBC 3.80(L) 4.50 - 5.90 M/uL [facility] HGB 11.1(L) 13.5 - 17.5 g/dL [facility] HCT 33.6(L) 41.0 - 53.0 % [facility] PLT 225 150 - 450 K/uL [facility] MCV 88.4 80.0 - 100.0 fL [facility] MCH 29.2 27.0 - 31.0 pg [facility] MCHC 33.0 32.0 - 36.0 g/dL [facility] RDW 12.6 11.5 - 14.5 % [facility] MPV 11.0 8.4 - 12.0 fL [facility] NRBC 0.00 0.00 /100 WBCs [facility] ABSOLUTE NRBC 0.00 0.00 K/uL [facility] DIFF METHOD Auto [facility] NEUTS 68.3 48.0 - 76.0 % [facility] LYMPHS 20.2 18.0 - 41.0 % [facility] MONOS 9.5 4.0 - 11.0 % [facility] EOS 1.1 0.0 - 5.0 % [facility] BASOS 0.5 0.0 - 1.5 % [facility] Granulocytes, immature (%) 0.4 0.0 - 0.9 % [facility] ABSOLUTE NEUTS 5.03 1.92 - 7.60 K/uL [facility] ABSOLUTE LYMPHS 1.49 0.72 - 4.10 K/uL [facility] ABSOLUTE MONOS 0.70 0.16 - 1.10 K/uL [facility] ABSOLUTE EOS 0.08 0.00 - 0.50 K/uL [facility] ABSOLUTE BASOS 0.04 0.00 - 0.15 K/uL [facility] Granulocytes, immature 0.03 0.00 - 0.09 K/uL [facility] Blood 06/23/2025 3:58 PM EDT 06/23/2025 4:10 PM EDT Wilber Davis PA-C LAB BLOOD ORDERABLES Final Res ult Performing Organization Address City/[facility]/ZIP Co de Phone Number [address] [address] * (ABNORMAL) Basic metabolic panel (06/23/2025 3:58 PM EDT) Only the most recent of7 resultswithin the time period is included. SODIUM 138 133 - 146 mmol/L [facility] CHLORIDE 101 96 - 108 mmol/L [facility] POTASSIUM 4.2 3.3 - 5.1 mmol/L [facility] CO2 23 21 - 35 mmol/L [facility] BUN 18 6 - 19 mg/dL [facility] CREATININE 1.10 0.5 - 1.5 mg/dL [facility] GLUCOSE 287(H) 70 - 99 mg/dL [facility] CALCIUM 9.7 8.4 - 10.3 mg/dL [facility] EGFR 70 >59 mL/min/1.7 3m2 [facility] Comment:Estimated glomerular filtration rate calculated using the CKD-EPI refit equation. ANION GAP 18 10 - 20 mmol/L [facility] Blood 06/23/2025 3:58 PM EDT 06/23/2025 4:10 PM EDT Wilber Davis PA-C LAB BLOOD ORDERABLES Final Res ult [address] [address] * (ABNORMAL) POCT Glucose (05/21/2025 12:17 PM EDT) Only the most recent of21 resultswithin the time period is included. Glucose, POCT 185(H) 70 - 100 mg/dL [facility] 05/21/2025 12:1 7 PM EDT 05/21/2025 12:19 PM EDT us Xu Morris MD POINT OF CARE LUCINA T ORDERABLES Final Result Performing Organization Address [facility] Co de Phone Number [address] [address] * (ABNORMAL) Reticulocytes (05/21/2025 7:14 AM EDT) [facility] RETIC (%) 2.3 0.7 - 2.5 % [facility] RETIC (ABSOLUTE) 0.0869 0.0260 - 0.0950 M/uL [facility] RETIC HGB EQUIV 32.60 31.5 - 36.0 pg [facility] Retics, immature(%) 15.6(H) 2.3 - 13.4 % [facility] Blood 05/21/2025 7:14 AM EDT 05/21/2025 7:51 AM EDT Sandie Hannah [employer] LAB BLOOD ORDERABLES Fin al Result Performing Organization Address [facility] Co de Phone Number [address] [address] * LDH (05/21/2025 7:14 AM EDT) [facility] LDH 231 118 - 273 U/L [facility] Blood 05/21/2025 7:14 AM EDT 05/21/2025 7:51 AM EDT Sandie Emily Hannah [employer] LAB BLOOD ORDERABLES Fin al Result Performing Organization Address [facility] Co de Phone Number [address] [address] * (ABNORMAL) CBC (05/21/2025 7:14 AM EDT) [facility] WBC 12.35(H) 4.00 - 11.00 K/uL [facility] RBC 3.78(L) 4.50 - 5.90 M/uL [facility] HGB 11.1(L) 13.5 - 17.5 g/dL [facility] HCT 33.6(L) 41.0 - 53.0 % [facility] PLT 214 150 - 450 K/uL [facility] MCV 88.9 80.0 - 100.0 fL [facility] MCH 29.4 27.0 - 31.0 pg [facility] MCHC 33.0 32.0 - 36.0 g/dL [facility] RDW 12.7 11.5 - 14.5 % [facility] MPV 11.2 8.4 - 12.0 fL [facility] NRBC 0.00 0.00 /100 WBCs [facility] ABSOLUTE NRBC 0.00 0.00 K/uL [facility] Blood 05/21/2025 7:14 AM EDT 05/21/2025 7:51 AM EDT Sandie Diaz [place] [employer] LAB BLOOD ORDERABLES Fin al Result Performing Organization Address City/[facility]/ZIP Co de Phone Number [address] [address] * Magnesium (05/21/2025 7:14 AM EDT) Only the most recent of4 resultswithin the time period is included. MAGNESIUM 1.8 1.6 - 2.6 mg/dL [facility] Blood 05/21/2025 7:14 AM EDT 05/21/2025 7:51 AM EDT Sandie Emily Hannah [employer] LAB BLOOD ORDERABLES Fin al Result [address] [address] * Haptoglobin (05/21/2025 7:14 AM EDT) HAPTOGLOBIN 146 30 - 200 mg/dL [facility] Blood 05/21/2025 7:14 AM EDT 05/21/2025 7:51 AM EDT Sandie Hannah [employer] LAB BLOOD ORDERABLES Fin al Result [facility] [address] [place] [address] * Folate (05/21/2025 7:14 AM EDT) FOLIC ACID 17.3 4.2 - 19.9 ng/mL [facility] Blood 05/21/2025 7:14 AM EDT 05/21/2025 7:51 AM EDT us Sandie Hannah [employer] LAB BLOOD ORDERABLES Fin al Result Performing Organization Address City/[facility]/ZIP Co de Phone Number [address] [address] * Vitamin B12 (05/21/2025 7:14 AM EDT) VITAMIN B12 442 232 - 1,245 pg/mL [facility] Blood 05/21/2025 7:14 AM EDT 05/21/2025 7:51 AM EDT Sandie Hannah [employer] LAB BLOOD ORDERABLES Fin al Result Performing Organization Address City/[facility] Co de Phone Number [address] [address] * TTE COMPREHENSIVE W/ LVO CONTRAST (05/20/2025 2:10 PM EDT) Left Atrium Dimension Anterior-Loss Prevention And Safety Manager ior 34 15 - 40 mm Ejection Fraction 72 50 - 75 % Anatomical Region Laterality Modality Heart Ultrasound Narrative 05/20/2025 5:58 PM EDT Images from the original result were not included. - Rhythm is sinus - Normal LV size and systolic function - EF is estimated at 72% - RV appears normal - Mild to moderate aortic valve calcification - Trace aortic valve regurgitation - No pericardial effusion present-IVC not well-visualized Multiple poor acoustic windows present affecting interpretation Left Ventricle The left ventricle is normal in size. There is LV hypertrophy with upper septal predominance. There is normal left ventricular systolic function. The LV ejection fraction is 72% (calculated via the single dimension method). LV diastolic function was not assessed. Right Ventricle The RV is suboptimally visualized. Left Atrium The left atrium is normal in size. There are normal flow patterns in the pulmonary vein. Right Atrium The right atrium is suboptimally visualized. The IVC is suboptimally visualized. Mitral Valve There is mitral valve thickening. There is mitral annular calcification. Tricuspid Valve The tricuspid valve appears normal. RV systolic pressure could not be estimated due to insufficient TR Doppler envelope. Aortic Valve The aortic valve is tricuspid. There is leaflet calcification. There is no aortic stenosis. There is trace aortic regurgitation. Pulmonic Valve The pulmonic valve is suboptimally visualized. Pericardium There is no pericardial effusion. General Findings The study was technically difficult (4). Meds reconciled and reviewed (see chart). An ultrasound enhancing agent was administered IV, per ASE guidelines ([place]). Comparison Findings Compared to prior TTE on 08/15/2024, No significant changes appear present compared to echo from August, IAS/IVS The interatrial septum is suboptimally visualized. Sandie Hannah [employer] [facility] ECHO ORDERABLES Final Result * TSH with reflex (05/20/2025 7:37 AM EDT) TSH 2.92 0.27 - 4.20 uIU/mL [facility] Blood 05/20/2025 7:37 AM EDT 05/20/2025 8:04 AM EDT Sandie Hannah SUBWAY GUARD LAB BLOOD ORDERABLES Fin al Result [facility] [address] [place] [address] * (ABNORMAL) Iron and iron binding capacity (05/20/2025 7:37 AM EDT) IRON 36(L) 45 - 160 ug/dL [facility] IRON BINDING CAPACITY 259 228 - 428 ug/dL [facility] TRANSFERRIN SATURAT. 14(L) 20 - 55 % [facility] Blood 05/20/2025 7:3 7 AM EDT 05/20/2025 8:04 AM EDT Sandie Hannah SUBWAY GUARD LAB BLOOD ORDERABLES Fin al Result Performing Organization Address [facility]/ZIP Co de Phone Number [address] [address] * Phosphorus (05/20/2025 7:37 AM EDT) Only the most recent of2 resultswithin the time period is included. PHOSPHORUS 3.8 2.7 - 4.5 mg/dL [facility] Blood 05/20/2025 7:37 AM EDT 05/20/2025 8:04 AM EDT Sandie Hannah SUBWAY GUARD LAB BLOOD ORDERABLES Fin al Result Performing Organization Address [facility] Co de Phone Number [address] [address] * (ABNORMAL) Hemoglobin A1c (05/20/2025 7:37 AM EDT) HEMOGLOBIN A1C 7.5(H) 4.3 - 5.8 % [facility] Blood 05/20/2025 7:37 AM EDT 05/20/2025 8:05 AM EDT Sandie Hannah SUBWAY GUARD LAB BLOOD ORDERABLES Fin al Result Performing Organization Address City/[facility]/ZIP Co de Phone Number [address] [address] * Ferritin (05/20/2025 7:37 AM EDT) FERRITIN 134 30 - 400 ug/L [facility] Blood 05/20/2025 7:37 AM EDT 05/20/2025 8:04 AM EDT Sandie Hannah SUBWAY GUARD LAB BLOOD ORDERABLES Fin al Result Performing Organization Address [facility]/ZIP Co de Phone Number [address] [address] * (ABNORMAL) Lipid panel (05/20/2025 7:37 AM EDT) HDL 32 mg/dL [facility] Comment: Interpretation <40 mg/dL: Low HDL cholesterol (major risk factor for CHD) Greater than or equal to 60 mg/dL: High HDL cholesterol ( negative risk factor for CHD) HDL - cholesterol is affected by a number of factors, e.g. smoking, excerise, hormones, sex and age. CHOLESTEROL 87 0 - 240 mg/dL [facility] TRIGLYCERIDES 134 30 - 160 mg/dL [facility] LDL 28(L) 50 - 129 mg/dL [facility] Comment: LDL levels in terms of risk for coronary heart disease: <100 mg/dL: Optimal 100-129 mg/dL: Near or above optimal 130-159 mg/dL: Borderline high 160-189 mg/dL: High >190 mg/dL: Very High CARDIAC RISK RATIO 2.7(L) 3.4 - 5.0 C [facility] 05/20/2025 7:37 AM EDT 05/20/2025 8:04 AM EDT us Sandie Hannah NP LAB BLOOD ORDERABLES Fin al Result Performing Organization Address [facility] Co de Phone Number [address] [address] * Urinalysis w/reflex Urine Culture (05/19/2025 9:47 AM EDT) COLOR Yellow Yellow [facility] CLARITY Clear [facility] GLUCOSE Negative Negative [facility] BILI Negative Negative [facility] KETONES Negative Negative [facility] SPECIFIC GRAVITY 1.020 1.005 - 1.030 [facility] BLOOD Negative Negative [facility] PH 5.5 5.0 - 8.0 [facility] Protein-UA Negative Negative [facility] NITRITE Negative Negative [facility] Leukocyte esterase, ur Negative Negative [facility] Urine (Urine) 05/19/2025 9:4 7 AM EDT 05/19/2025 10:06 AM EDT Ivis Rodriguez MD URINE ORDERABLES Final Resu lt Performing Organization Address [facility] de Phone Number [address] [address] * (ABNORMAL) LFTs (hepatic panel) (05/19/2025 8:30 AM EDT) Only the most recent of2 resultswithin the time period is included. ALKALINE PHOSPHATASE 65 39 - 117 U/L [facility] TOTAL BILIRUBIN 0.3 0.0 - 1.2 mg/dL [facility] DIRECT BILIRUBIN 0.1 0.0 - 0.2 mg/dL [facility] Bilirubin (Indirect) NOT CALCULATED 0 - 1.5 mg/dL [facility] AST 20 0 - 37 U/L [facility] ALT 14 0 - 40 U/L [facility] TOTAL PROTEIN 5.9(L) 6.5 - 8.0 g/dL [facility] ALBUMIN 3.7(L) 3.9 - 4.8 g/dL [facility] GLOBULIN 2.2 1 - 4.8 g/dL [facility] A/G Ratio 1.68 1.00 - 4.80 RATIO [facility] Blood 05/19/2025 8:30 AM EDT 05/19/2025 8:51 AM EDT Ivis Rodriguez MD LAB BLOOD ORDERABLES Final Result Performing Organization Address [facility] Co de Phone Number [address] [address] * (ABNORMAL) NT-proBNP (05/19/2025 8:30 AM EDT) Only the most recent of2 resultswithin the time period is included. NT-PROBNP 1,460(H) 0 - 450 pg/mL [facility] 05/19/2025 8:30 AM EDT 05/19/2025 8:51 AM EDT Ivis Rodriguez MD LAB BLOOD ORDERABLES Final Result Performing Organization Address City/[facility]/ZIP Co de Phone Number [address] [address] * Lactate (05/19/2025 8:30 AM EDT) LACTATE 1.89 0.50 - 2.20 mmol/L [facility] Blood 05/19/2025 8:30 AM EDT 05/19/2025 8:43 AM EDT Ivis Rodriguez MD LAB BLOOD ORDERABLES Final Result Performing Organization Address [facility] Co de Phone Number [address] [address] * XR Chest Portable (05/19/2025 8:28 AM EDT) Anatomical Region Laterality Modality Chest Computed Radiogr aphy 05/19/2025 8:57 AM EDT Impressions 05/19/2025 9:12 AM EDT No acute abnormality. ATTESTATION: I, Jaylene Pitts as teaching physician, have reviewed the images for this case and if necessary edited the report originally created by Travis Hughes. Narrative 05/19/2025 9:12 AM EDT XR CHEST PORTABLE Referring clinician's provided indication for this examination in Epic: Pain; bradycardia, R shoulder pain COMPARISON: XR CHEST PORTABLE FINDINGS: Devices/Tubes/Lines: External leads. Lungs: Low lung volumes. No focal consolidation or pulmonary edema. Pleura: No pleural effusion or pneumothorax. Heart/Mediastinum: Unchanged mild cardiomegaly and mediastinal contours. Bones/Soft Tissues: No significant abnormality. Procedure Note Jaylene Sarmiento MD - 05/19/2025 XR CHEST PORTABLE Referring clinician's provided indication for this examination in [facility]:Pain; bradycardia, R shoulder pain COMPARISON: XR CHEST PORTABLE FINDINGS: Devices/Tubes/Lines: External leads. Lungs: Low lung volumes. No focal consolidation or pulmonary edema. Pleura: No pleural effusion or pneumothorax. Heart/Mediastinum: Unchanged mild cardiomegaly and mediastinal contours. Bones/Soft Tissues: No significant abnormality. IMPRESSION: No acute abnormality. ATTESTATION: I, Jaylene Pitts as teaching physician, have reviewed theimages for this case and if necessary edited the report originally createdby Travis Hughes. us Ivis Rodriguez MD IMG XR CHEST Final Resul t * Procalcitonin (05/14/2025 7:13 AM EDT) [facility] Procalcitonin 0.04 0.00 - 0.25 ng/mL [facility] Comment: <=0.25 ng/mL: Bacterial pneumonia is unlikely. <0.5 ng/mL: Low likelihood of systemic bacterial infection / sepsis. Localized infection is possible. 0.5-2.0 ng/mL: Systemic bacterial infection / sepsis is possible, but other conditions can induce PCT levels in this range as well (e.g., pancreatitis,severe trauma, circulatory shock, surgery, garcia, inhalation injury.) >2.0 ng/mL: Systemic bacterial infection / sepsis is likely. Additional information can be found in the [employer] Procalcitonin Guidelines, available at http://handbook.mgb.org/3817/Content/4-138-251 Blood 05/14/2025 7:13 AM EDT 05/14/2025 7:19 AM EDT us Rajeev Euceda PA-C, MPH LAB BLOOD ORDERABLE S Final Result [address] [address] * MRSA PCR SCREEN (05/13/2025 11:51 PM EDT) [facility] MRSA PCR SCREEN Negative Negative [facility] Comment:The Xpert MRSA Assay is intended to aid in the prevention and control of MRSA infections in healthcare settings. The assay is not intended to diagnose nor to guide or monitor treatment for MRSA infections. Other (Nasal) 05/13/2025 11: 51 PM EDT 05/14/2025 1:12 AM EDT Rajeev Euceda PA-C, MPH NON CULTURE MICROBI OLOGY Final Result Performing Organization Address [facility]/ZIP Co de Phone Number [address] [address] * Sedimentation rate (ESR) (05/13/2025 5:04 PM EDT) ESR 4 0 - 20 mm/h [facility] 05/13/2025 5:04 PM EDT 05/13/2025 5:10 PM EDT David Winkler PA-C LAB BLOOD ORDERABLES Final Re sult Performing Organization Address [facility] de Phone Number [address] [address] * (ABNORMAL) PT-INR (05/13/2025 5:04 PM EDT) PT 16.5(H) 10.2 - 12.9 sec [facility] INR 1.3(H) 0.9 - 1.1 [facility] Comment:Therapeutic range fo r oral Vitamin K antagonists: 2.0-3.5 Blood 05/13/2025 5:04 PM EDT 05/13/2025 5:10 PM EDT David Winkler PA-C LAB BLOOD ORDERABLES Final Re sult Performing Organization Address [facility] Co de Phone Number [address] [address] * C-Reactive Protein (05/13/2025 5:04 PM EDT) C REACTIVE PROTEIN <3.0 0.0 - 4.0 mg/L [facility] 05/13/2025 5:04 PM EDT 05/13/2025 5:10 PM EDT David GARCIA-C LAB BLOOD ORDERABLES Final Re sult Performing Organization Address City/[facility]/ZIP Co de Phone Number [address] [address] * (ABNORMAL) Venous blood gas (05/13/2025 5:04 PM EDT) pH, Venous 7.35 7.31 - 7.41 [facility] PCO2, Venous 40.80(L) 41.00 - 51.00 mmHg [facility] PO2, Venous 72.00(H) 35.00 - 40.00 mmHg [facility] HCO3, Venous 22(L) 23 - 28 mmol/L [facility] BASE DEFICIT VENOUS 3.5(H) 0.0 - 2.0 mmol/L [facility] SO2, VENOUS 92.50(H) 60.00 - 80.00 % [facility] FO2HB, VENOUS 90.70(H) 71.00 - 74.00 % [facility] Carboxy Hgb 1.60(H) 0 - 1.50 % [facility] MetHgb % 0.30 0 - 1.50 % [facility] Blood 05/13/2025 5:04 PM EDT 05/13/2025 5:08 PM EDT David GARCIA-Juliano LAB BLOOD ORDERABLES Final Re sult [address] [address] * XR Chest Portable (05/13/2025 4:49 PM EDT) Anatomical Region Laterality Modality Chest Computed Radiogr aphy 05/13/2025 6:25 PM EDT Impressions 05/13/2025 6:28 PM EDT No acute abnormality. Narrative 05/13/2025 6:28 PM EDT XR CHEST PORTABLE Referring clinician's provided indication for this examination in [facility]: Dyspnea (Shortness of Breath) COMPARISON: XR CHEST PA AND LATERAL 2 VIEWS FINDINGS: Devices/Tubes/Lines: None. Lungs: No focal consolidation or pulmonary edema. Pleura: No pleural effusion or pneumothorax. Heart/Mediastinum: Normal heart and mediastinum. Bones/Soft Tissues: No significant abnormality. Procedure Note Long Bai MD - 05/13/2025 XR CHEST PORTABLE Referring clinician's provided indication for this examination in [facility]:Dyspnea (Shortness of Breath) COMPARISON: XR CHEST PA AND LATERAL 2 VIEWS FINDINGS: Devices/Tubes/Lines: None. Lungs: No focal consolidation or pulmonary edema. Pleura: No pleural effusion or pneumothorax. Heart/Mediastinum: Normal heart and mediastinum. Bones/Soft Tissues: No significant abnormality. IMPRESSION: No acute abnormality. David Winkler PA-C IMG XR CHEST Final Result * COVID Pandemic Respiratory Viral Order (PRO) (05/13/2025 4:46 PM EDT) Test Ordered Rapid COVID, Flu has been ordered [facility] Specimen Source/Descriptio n NASOPHARYNGEAL SWAB [facility] Influenza A PCR Not Detected Not Detected [facility] Influenza B PCR Not Detected Not Detected [facility] SARS-CoV 2 (COVID-19) PCR Not Detected Not Detected [facility] Comment: SARS-CoV-2 not detected Negative results do not preclude SARS-CoV-2 infection and should not be used as the sole basis for patient management decisions. Negative results must be combined with clinical observations, patient history, and epidemiological information. Other (Nasopharyngeal swab) 05/13/2025 4:46 PM EDT 05/13/2025 5:27 PM EDT Manuel Villegas MD BODY FLUIDS AND S TOOLS ORDERABLES Final Result [facility] [address] [place] [address] * XR CERVICAL SPINE 2-3 VIEWS (05/05/2025 11:36 AM EDT) Anatomical Region Laterality Modality C-spine Computed Radiogr aphy 05/05/2025 3:22 PM EDT Impressions 05/05/2025 3:24 PM EDT Degenerative changes. No acute osseous abnormality. Narrative 05/05/2025 3:24 PM EDT XR CERVICAL SPINE 2-3 VIEWS Referring clinician's provided indication for this examination in [facility]: Outside Radiology Order; Other Indication (Please use free text); numbness and tingling COMPARISON: None FINDINGS: C7 is obscured on the lateral view. No acute fracture or compression fracture. Multilevel disc height loss and uncovertebral hypertrophy greatest from C5 to C7. Severe multilevel facet osteoarthrosis. No significant listhesis. Procedure Note Brii Palacio MD - 05/05/2025 XR CERVICAL SPINE 2-3 VIEWS Referring clinician's provided indication for this examination in [facility]:Outside Radiology Order; Other Indication (Please use free text); numbnessand tingling COMPARISON: None FINDINGS: C7 is obscured on the lateral view. No acute fracture or compressionfracture. Multilevel disc height loss and uncovertebral hypertrophygreatest from C5 to C7. Severe multilevel facet osteoarthrosis. Nosignificant listhesis. IMPRESSION: Degenerative changes. No acute osseous abnormality. us Fredrick Barkley DO IMG XR SPINE Final Result from Last 3 Months Insurance MEDICARE PART A & B Member Subscriber Plan / Payer (Ef fective 2010-Present) Name:Jesus Zepeda Member ID:[id number] Relation to Subscriber:Self Name:Jesus Zepeda Subscriber ID:[id number] Payer ID:[id number] Group ID:Not on file Type:Medicare Address: [facility] [employer] [facility] [address] [place] [phone] [facility] MEDIC[facility] REPLACEMENT MEDICARE PART A & B [facility] MEDICARE REPLACEMENT MEDICARE PART A & B MEDICARE PART A & B MEDICARE PART A & B [facility] MEDICARE REPLACEMENT MEDICARE PART A & B [facility] MEDICARE REPLACEMENT MEDICARE PART A & B [facility] MEDICARE REPLACEMENT MEDICARE PART A & B MEDICARE PART A & B B [facility] MEDICARE REPLACEMENT Advance Directives For more information, please contact: [phone] (9AM - 5PM [facility], Thursday-Thursday) Documents on File Type Date Recorded Patient Car Repairer Expl anation Healthcare Proxy 05/17/2025 2:22 PM MOLST 05/15/2025 9:45 AM * Full Code (Latest Code Status on File) Date Activated Date Inactivated Comments 05/19/2025 1:05 PM Question Answer Comments Code Status Confirmed With: Patient * Full Code Date Activated Date Inactivated Comments 05/13/2025 9:46 PM 05/19/2025 1:05 PM Question Answer Comments Code Status Confirmed With: Patient * Full Code Date Activated Date Inactivated Comments 08/02/2021 2:36 PM 05/13/2025 9:46 PM Question Answer Comments Code Status Confirmed With: Patient * Full Code (Presumed) Date Activated Date Inactivated Comments 04/22/2019 6:39 AM 04/28/2019 9:19 PM * Full Code (Confirmed) Date Activated Date Inactivated Comments 04/09/2019 5:41 AM 04/10/2019 3:42 PM Question Answer Comments Code Status Confirmed With: Patient Care Teams Senior Energy Trader Relationship Specialty Start Date End Date Fredrick Barkley DO [address] [place] [address] PCP - General Internal Medicine 05/05/25 Manpreet Huber MD [address] [place] [id number] [email or web address] Intensive Care 02/24/19 Alfonzo Luis DO [address] [place] [address] [email or web address] Primary Oncologist Hematology and Oncology 09/03/20 Mary Willard FNP [address] [place] [id number] [email or web address] Registered Nurse Nurse Practitioner 12/01/24 Additional Source Comments The information contained in this document represents components of the legal health record. It is not the complete legal health record.[facility]
--- OUTSIDE RECORDS SUMMARY | 2025-06-28 18:57 | XMS_ITS ---
Author Organization [facility] Address [address] [place] [address] Phone Care Team Providers Care Route Relief Driver Name Role Phone Manpreet Huber MD Unavailable [phone] Alfonzo Luis DO Unavailable [phone] Mary Willard SENIOR ADULTS DIRECTOR Unavailable [phone] Fredrick Barkley DO Primary Care Provider [phone] Active Problems * This document contains information received from the source organization and may not represent a complete record from that organization. Patient Care Coordination No te Formatting of [...] See on CTA in late March at [facility]. CTA showed penetrating atherosclerotic ulcers measuring 0.3 cm in depth, roughly 0.4cm in width and 0.5cm in length. There is no associated aneurysm or dissection. This is to be followed up as outpatient with [facility] vascular surgery. If he were to [...] RCA and May 2024 who presents to [facility] on 04/10 with concerns of bilateral upper [...] chart review April 11 was seen at [facility] for bilateral upper extremity parathesias - MRI cervical spine: C4-C5 stenosis with T2 signal change. - Neurosurgery evaluated and planning for outpatient with [facility] Spine. - PT/OT consulted - Tylenol PRN, Gabapentin dose increased to 200 mg TID - Patient has not followed up with neurosurgery because he said he wanted to see his primary care provider first. Patient was advised that he should make an appointment to see neurosurgery as soon as possible. Assessment & Plan (05/19/2025 1:54 PM EDT): April 11 was seen at [facility] for bilateral upper extremity parathesias - MRI cervical spine: C4-C5 stenosis with T2 signal change. - Neurosurgery evaluated and planning for outpatient with [facility] Spine. - PT/OT consulted - Tylenol PRN, Gabapentin dose increased to 200 mg TID - Patient has not followed up with neurosurgery because he said he wanted to see his primary care provider first. Patient was advised that he should make an appointment to see neurosurgery as soon as possible. Assessment & Plan (05/13/2025 11:48 PM EDT): April 11 was seen at [facility] ED for evaluation of sudden onset [...] nuclear imaging Coronary artery disease invo lving solomon coronary artery of solomon heart 07/29/2022 Assessment & Plan (06/23/2025 11:10 [...] (06/24/2024 9:09 AM EDT): Recent non-ST elevation PR requiring a stent to the right coronary [...] was called and he was transferred to [facility] for evaluation. Currently he was brought to the [facility] on 07/16/2022, he was found to have [...] an ongoing issue for him at all dredge operator consulted who suggested symptoms could be [...] in the past including multiple ED visits 2019 for shortness of breath ultimately attributed to a psychiatric cause as noted in patient's acute care plan that was developed then. Past medical history in [facility] has listed PTSD pseudoseizures panic agoraphobia possible [...] appointment to establish care with a therapist. BALLROOM DANCE INSTRUCTOR to see to help the patient connect [...] PM EDT): Patient is on home glipizide. Qmhej-ct-[id number]'s will be checked. Insulin sliding scale. I [...] WRITTEN ON 05/13/2025 11:02 PM BY RAJEEV POPE PA-C, MPH Home glipizide. SSI for now [...] atrial fibrillation. I reviewed his records from [facility] as well. No anticoagulation. Mild intermittent asthma [...] to follow-up with sleep medicine services of [facility] to ensure other indications other than [...] Refer to GI (Gina) for likely EGD. Current Treatment and Therapy Plans [facility] ([facility] Plan Start Date:06/13/2020 Plan Provider:Alfonzo Luis DO Linked Problems Carcinoma of prostate Treatment Medications leuprolide (3 month) (ELIGAR D 3 MONTH) Past Treatment and Therapy Plans Oncology Therapy Plan Plan Name Start Date Discontinue Date Treatment Medications Discontinue Reason Plan Provider LEUPROLIDE ACETATE 3 MONTH (LUPRON DEPOT 3 MONTH) 03/12/2020 12/18/2020 leuprolide (LUPRON) e. Reapplying Amended Protocol / Plan Alfonzo Luis DO TREATMENT PLAN Plan Name Start Date Discontinue Date Treatment Medications Discontinue Reason Plan Provider Cycles ABIRATERONE 11/13/2022 04/16/2025 abiraterone (ZYTIGA) a. Therapy Complete Alfonzo Luis DO 2 of 4 cycles started Resolved Problems Problem Noted Date Diagnosed Date [...] chest pain has persisted since discharge from [facility]. He states that he is motivated to [...] suggested completing stress test as an outpatient-negative counts include 234 beds at the [facility] stress 2018 patient chest pain has resolved without intervention [...]
--- OUTSIDE RECORDS SUMMARY | 2025-06-28 18:57 | XMS_ITS | Encounter Summary ---
Author Organization [facility] Address [address] [place] [address] Phone Care Team Providers Care Home Appliance Installer Name Role Phone Manpreet Huber MD Unavailable [phone] Alfonzo Luis DO Unavailable [phone] Mary Willard ENERGY ECONOMIST Unavailable [phone] Fredrick Barkley DO Primary Care Provider Encounter Details Date Type Department Care Team (Late st Contact Info) Description 06/23/2025 Telephone CD Pulmonary, Allergy and Critical Care Medicine 10 [place] [address] Manpreet Huber MD [address] [facility] 2nd [place] [address] [email or web address] Social History Tobacco Use Types Packs/Day Years [...] End Date retired, worked [address] [employer] Not on file Not on file Not on file documented as of this encounter Functional Status * Calculated C-SSRS Risk Score (Lifetime/Recent) Answer Date of Assessment Author No Risk Indicated 06/23/2025 3:28 PM EDT Cheli Melchor RN * [place] Suicide Severity Rating Scale (Screener/Recent Self-Report) Question Answer Date of Assessment Author 1. Wish to be (Past 1 Month) No 06/23/2025 3:28 PM EDT Cheli Melchor RN 2. Non-Specific Active Suicidal Thoughts (Past 1 Month) No 06/23/2025 3:28 PM EDT Cheli Melchor RN 6. Suicidal Behavior (Lifetime) No 06/23/2025 3:28 PM EDT Cheli Melchor RN documented as of this encounter Progress Notes * Manpreet Huber MD - 06/28/2025 11:51 AM EDT sure * Manpreet Huber MD - 06/23/2025 3:35 PM EDT You can look for a cancellation (Thursday?) but it doesn't seem urgent. Thanks. * Le Diaz - 06/23/2025 12:08 PM EDT Patient came in to let Dr. Huber know that he was seen at [facility] and they want him to be seen sooner than his scheduled follow up in August-- I told him I would send Dr. Huber a message- Dr. Huber-please advise. Thanks documented in this encounter Plan of Treatment Upcoming Encounters Date Type Department Care Team (Late st Contact Info) Description 06/23/2025 Procedure Pass Event Monitor [address] [place] [address] 07/12/2025 8:30 AM EDT Appointment Non-Invasive Cardiology [address] [place] [address] Gene Oreilly, ELENI [address] [place] [address] 07/21/2025 9:15 AM EDT Appointment Event Monitor [address] [place] [address] Gene Oreilly, ELENI 50 [place] [address] 09/05/2025 9:30 AM EST Office [place] [facility] [place], Allergy and Critical Care Medicine 10 [facility] [place] [address] Manpreet Huber MD [address] [place] [address] 2nd [place] [address] 09/25/2025 11:00 AM EST Office Visit [facility] [address] [facility] 3rd Floor, [address] [place] [address] Gene Oreilly, ELENI 50 [place] [address] documented as of this encounter Goals Goal [...] divorce Current Homecare: Patient is followed by [facility] Insurance Donor Relations Associate Nancy who is working to connect patient with home RESEARCH PHYSICIST and BH services. On Arrival to ED: [...] from ED: Send Case Management Consult in [facility] to follow up that homecare services [...] the community. Plan SW to connect with DATABASE ADMINISTRATION MANAGER to determine if appointment has been made for outpatient mental health follow up and patient assigned a therapist.CM also will work with Clary MOSLEY to connect patient to SW/RN home services. SW will also discuss the possibility of FDC. Issues/Plan: High risk of respiratory distress. Plan [...] filedocumented in this encounter Additional Health Concerns Assessment Noted Time PHQ-9 Depression Total Score: 8 09/02/20 22 9:53 AM EST documented as of this encounter Care Teams Home Appliance Installer Relationship Specialty Start Date End Date Fredrick Barkley DO [address] [place] [address] [email or web address] PCP - General Internal Medicine 05/05/25 Manpreet Huber MD [address] [place] [address] [email or web address] Intensive Care 02/24/19 Alfonzo Luis DO [address] [place] [address] [email or web address] Primary Oncologist Hematology and Oncology 09/03/20 Mary Willard FNP 30 [place] [address] [email or web address] Registered Nurse Nurse Practitioner 12/01/24 documented as of this encounter Additional Source Comments The information contained in this document represents components of the legal health record. It is not the complete legal health record.[facility]
--- OUTSIDE RECORDS SUMMARY | 2025-06-28 18:57 | XMS_ITS | Encounter Summary ---
Author Organization [facility] Address [address] [place] [address] [place] [address] Phone Care Team Providers Care Ceo & Co Founder Name Role Phone Fredrick Barkley DO Primary Care Provider + Manpreet Huber MD Unavailable [phone] Alfonzo Luis DO Unavailable [phone] Mary Willard PARQUETRY FLOOR LAYER Unavailable [phone] Aysha Clark BARN HAND Unavailable [phone] Fredrick Barkley DO Primary Care Provider + Encounter Details Date Type Department Care Team (Late st Contact Info) Description 08/31/2023 Procedure Pass Echo Lab [address] [place], [place] [id number] Social History Tobacco Use Types Packs/Day Years [...] End Date retired, worked 34 yrs at [employer] Not on file Not on file Not on file documented as of this encounter Plan of Treatment Upcoming Encounters Date Type Department Care Team (Late st Contact Info) Description 06/23/2025 Procedure Pass Event Monitor [address] [place] [address] 07/12/2025 8:30 AM EDT Appointment Non-Invasive Cardiology [address] [place] [address] Gene Oreilly, ORTHOTIC/PROSTHETIC CLINICIAN [address] [place] [address] [email or web address] 07/21/2025 9:15 AM EDT Appointment Event Monitor [address] [place] [address] Gene Oreilly, ORTHOTIC/PROSTHETIC CLINICIAN [address] [place] [address] [email or web address] 09/05/2025 9:30 AM EST Office [place] [facility] [place]monary, Allergy and Critical Care Medicine 10 [facility] [place] [address] Manpreet Huber MD 10 [facility] 2nd [place] [address] 09/25/2025 11:00 AM EST Office Visit [facility] [address], [address] [place] [address] Gene Oreilly, ORTHOTIC/PROSTHETIC CLINICIAN [address] [place] [address] [email or web address] documented as of this encounter Goals Goal [...] divorce Current Homecare: Patient is followed by [facility] Insurance Nail Technician Nancy who is working to connect patient with home BARN HAND and services. On Arrival to ED: When [...] from ED: Send Case Management Consult in [facility] to follow up that homecare services [...] the community. Plan SW to connect with [facility] to determine if appointment has [...] documented as of this encounter Care Teams Ceo & Co Founder Relationship Specialty Start Date End Date Fredrick Barkley DO [email or web address] PCP - General Internal Medicine 08/17/17 05/04/25 Fredrick Barkley DO [address] [place] [address] [email or web address] PCP - General Internal Medicine 05/05/25 Manpreet Huber MD [address] [address] [email or web address] Intensive Care 02/24/19 Alfonzo Luis DO 30 [place] [address] [email or web address] Primary Oncologist Hematology and Oncology 09/03/20 Mary Willard FNP 30 [place] [address] [email or web address] Registered Nurse Nurse Practitioner 12/01/24 Aysha Clark NP [address] [place] [address] [email or web address] Nurse Practitioner Nurse Practitioner 12/14/24 12/22/24 documented as of this encounter Additional Source Comments The information contained in this document represents components of the legal health record. It is not the complete legal health record.[facility]
--- OUTSIDE RECORDS SUMMARY | 2025-06-28 18:58 | XMS_ITS | Encounter Summary ---
Author Organization [facility] Address [address] [place] [address] Phone Care Team Providers Care Investigation Manager Name Role Phone Fredrick Barkley DO Primary Care Provider [phone] Manpreet Huber MD Unavailable [phone] Alfonzo Luis DO Unavailable [phone] Mary Willard ASSEMBLY TECHNICIAN Unavailable [phone] Aysha Clark BRASS BOBBIN WINDER Unavailable [phone] Fredrick Barkley DO Primary Care Provider + Encounter Details Date Type Department Care Team (Latest Contact Info) Description 07/20/2018 Transcribe Orders [facility] Laboratory [address] [address] Wilber Lawrence MD [facility] [place], [place] [phone] [email or web address] Prostate cancer (Primary Dx) Social History Tobacco [...] Date retired, worked 34 yrs at [facility] Not on file Not on file Not on file documented as of this encounter Plan of Treatment Upcoming Encounters Date Type Department Care Team ([facility] st Contact Info) Description 06/23/2025 Procedure Pass Event Monitor [address] [place] [address] 07/12/2025 8:30 AM EDT Appointment Non-Invasive Cardiology [address] [place] [address] Gene Oreilly, BLOOD TESTER 50 [place] [address] 07/21/2025 9:15 AM EDT Appointment Event Monitor [address] [place] [address] Gene Oreilly, BLOOD TESTER [address] [place] [address] 09/05/2025 9:30 AM EST Office Visit CD Pulmonary, Allergy and Critical Care Medicine 10 [facility] [place], [place] [phone] Manpreet Huber MD 10 [facility] 2nd [place] [address] 09/25/2025 11:00 AM EST Office Visit [facility] [address]rd Floor, [address] [place] [address] Gene Oreilly, BLOOD TESTER [address] [place] [address] documented as of this encounter Results * PSA (screening) (07/20/2018 8:09 AM EDT) PSA 1.22 0 - 4.00 ng/mL [facility] Blood 07/20/2018 8:09 AM EDT 07/20/2018 8:13 AM EDT us Wilber Lawrence MD LAB BLOOD ORDERABLES Final Res ult [address] [address] documented in this encounter Visit Diagnoses Diagnosis Prostate cancer- Primary Malignant neoplasm of prostate documented in this encounter Additional Health Concerns Infection Onset Date Last Indicated Resolved Time CoV-Risk 05/14/2020 05/16/2020 05/30/2020 1:2 3 AM EDT CoV-Risk 06/11/2022 06/11/2022 06/22/2022 1:22 AM EDT CoV-Risk 06/04/2024 06/04/2024 06/15/2024 1:21 AM EDT CoV-Risk Comment:Per note documentation 05/13/2025 05/13/2025 11:51 PM EDT documented as of this encounter Care Teams Investigation Manager Relationship Specialty Start Date End Date Fredrick Barkley DO [email or web address] PCP - General Internal Medicine 08/17/17 05/04/25 Fredrick Barkley DO [address] [place] [address] PCP - General Internal Medicine 05/05/25 Manpreet Huber MD [address] [place] [address] [email or web address] Intensive Care 02/24/19 Alfonzo Luis DO 30 [place] [address] [email or web address] Primary Oncologist Hematology and Oncology 09/03/20 Mary Willard FNP 30 [place] [address] [email or web address] Registered Nurse Nurse Practitioner 12/01/24 Aysha Clark NP 30 [place] [address] [email or web address] Nurse Practitioner Nurse Practitioner 12/14/24 12/22/24 documented as of this encounter Additional Source Comments The information contained in this document represents components of the legal health record. It is not the complete legal health record.[facility]
--- OUTSIDE RECORDS SUMMARY | 2025-06-28 18:58 | XMS_ITS | Encounter Summary ---
Author Organization [facility] Address [address] [facility] [facility] [address] [place] [address] Phone Care Team Providers Care Manager Managed Backup Services Name Role Phone Fredrick Barkley DO Primary Care Provider [phone] Manpreet Huber MD Unavailable [phone] Alfonzo Luis DO Unavailable [phone] Mary Willard DATA INTEGRATION ANALYST Unavailable [phone] Aysha Clark SUPERVISOR ADULT EDUCATION Unavailable [phone] Fredrick Barkley DO Primary Care Provider + Encounter Details Date Type Department Care Team (Late st Contact Info) Description 08/02/[address] [facility] Echo Lab 30 [place] [address] Social History Tobacco Use Types Packs/Day Years [...] End Date retired, worked [address] [facility] Not on file Not on file Not on file documented as of this encounter Functional Status * Calculated C-SSRS Risk Score (Lifetime/Recent) Answer Date of Assessment Author No Risk Indicated 08/02/2021 1:28 AM EDT Cheli New RN * [place] Suicide Severity Rating Scale (Screener/Recent Self-Report) Question Answer Date of Assessment Author 1. Wish to be (Past 1 Month) No 08/02/2021 1:28 AM EDT Cheli New RN 2. Non-Specific Active Suici bryson Thoughts (Past 1 Month) No 08/02/2021 1:28 AM EDT Marquita New RN 6. Suicidal Behavior (Lifetime) No 1:28 AM EDT Cheli New RN documented as of this encounter Plan of Treatment Upcoming Encounters Date Type Department Care Team (Late st Contact Info) Description 06/23/2025 Procedure Pass Event Monitor [address] [place] [address] 07/12/2025 8:30 AM EDT Appointment Non-Invasive Cardiology [address] [place] [address] Gene Oreilly, CALCULATING MACHINE OPERATOR [address] [place] [address] [email or web address] 07/21/2025 9:15 AM EDT Appointment Event Monitor [address] [place] [address] Gene Oreilly, CALCULATING MACHINE OPERATOR [address] [place] [address] 09/05/2025 9:30 AM EST Office Visit [facility] Pulmonary, Allergy and Critical Care Medicine 10 [facility] [place] [address] Manpreet Huber MD 10 [facility] 2nd [place] [address] 09/25/2025 11:00 AM EST Office Visit [facility] [address] 3[address] Floor, [address] [place] [address] Gene Oreilly, CALCULATING MACHINE OPERATOR [address] [place] [address] documented as of this encounter Goals Goal [...] divorce Current Homecare: Patient is followed by [facility] Insurance Blueprint Duplicator Nancy who is working to connect patient with home SUPERVISOR ADULT EDUCATION and BH services. On Arrival to ED: [...] from ED: Send Case Management Consult in [facility] to follow up that homecare services [...] the community. Plan SW to connect with CHIEF CONSOLE OPERATOR to determine if appointment has been made for outpatient mental health follow up and patient assigned a therapist.CM also will work with Clary MOSLEY to connect patient to SW/RN home services. SW will also discuss the possibility of INTERMEDIATE. Issues/Plan: High risk of respiratory distress. Plan [...] documented as of this encounter Care Teams Manager Managed Backup Services Relationship Specialty Start Date End Date Fredrick Barkley DO [email or web address] PCP - General Internal Medicine 08/17/17 05/04/25 Fredrick Barkley DO [address] [place] [address] PCP - General Internal Medicine 05/05/25 Manpreet Huber MD [address] [place] [address] [email or web address] Intensive Care 02/24/19 Alfonzo Luis DO 30 [place] [address] [email or web address] Primary Oncologist Hematology and Oncology 09/03/20 Mary Willard FNP [address] [place] [address] [email or web address] Registered Nurse Nurse Practitioner 12/01/24 Aysha Clark NP [address] [place] [address] [email or web address] Nurse Practitioner Nurse Practitioner 12/14/24 12/22/24 documented as of this encounter Additional Source Comments The information contained in this document represents components of the legal health record. It is not the complete legal health record.[facility]
--- OUTSIDE RECORDS SUMMARY | 2025-06-28 18:58 | XMS_ITS | Encounter Summary ---
Author Organization [facility] Address [address] [facility] [address] [place] [address] Phone Care Team Providers Care Clockmaker Apprentice Name Role Phone Fredrick Barkley DO Primary Care Provider [phone] Manpreet Huber MD Unavailable [phone] Alfonzo Luis DO Unavailable [phone] Mary Willard FOOT CUTTER Unavailable [phone] Aysha Clark NP Unavailable [phone] Fredrick Barkley DO Primary Care Provider [phone] Encounter Details Date Type Department Care Team (Latest Contact Info) Description 09/01/2019 Transcribe Orders [facility] 30 [place] [address] Alfonzo Luis DO 30 [place] [address] [email or web address] Screening for unspecified condition (Primary Dx) Social History Tobacco Use Types [...] End Date retired, worked 34 yrs at [employer] Not on file Not on file Not on file documented as of this encounter Plan of Treatment Upcoming Encounters Date Type Department Care Team (Late st Contact Info) Description 06/23/2025 Procedure Pass Event Monitor [address] [place] [address] 07/12/2025 8:30 AM EDT Appointment Non-Invasive Cardiology [address] [place] [address] Gene Oreilly, LEAD SHOP OPERATOR [address] [place] [address] 07/21/2025 9:15 AM EDT Appointment Event Monitor [address] [place] [address] Gene Oreilly, LEAD SHOP OPERATOR [address] [place] [address] 09/05/2025 9:30 AM EST Office [place] [facility] [place], Allergy and Critical Care Medicine 10 [facility] [place] [address] Manpreet Huber MD 10 [facility] 2nd [place] [address] 09/25/2025 11:00 AM EST Office Visit [facility] [address], [address] [place] [address] Gene Oreilly, LEAD SHOP OPERATOR [address] [place] [address] documented as of this encounter Goals Goal Patient Goal Type Associated Problems Recent Progress Patient-Stated? Author Acute Care Plan Acute Care Plan Cheli Pal, RN Note: Current Management Plans: Clinical: Jesus [...] increase respiratory distress. Psychosocial updates include: early chcf, loss of financial stability, psychological and physical limitations, and most recently separation and planned divorce Current Homecare: Patient is followed by [facility] Insurance Tread Cutter Nancy who is working to connect patient with home SAP PAYROLL CONSULTANT and BH services. On Arrival to ED: [...] from ED: Send Case Management Consult in [facility] to follow up that homecare services [...] the community. Plan SW to connect with EVISCERATOR to determine if appointment has been made for outpatient mental health follow up and patient assigned a therapist. also will work with Clary MOSLEY to connect patient to / home services. SW will also discuss the [...] as of this encounter Visit Diagnoses Diagnosis Screening for unspecified condition- Primary documented in this encounter Additional Health Concerns Infection Onset Date Last Indicated Resolved Time CoV-Risk 05/14/2020 05/16/2020 05/30/2020 1:23 AM EDT CoV-Risk 06/11/2022 06/11/2022 06/22/2022 1:22 AM EDT CoV-Risk 06/04/2024 06/04/2024 06/15/2024 1:21 AM EDT CoV-Risk Comment:Per note documentation 05/13/2025 05/13/2025 11:51 PM EDT documented as of this encounter Care Teams Clockmaker Apprentice Relationship Specialty Start Date End Date Fredrick Barkley DO [email or web address] PCP - General Internal Medicine 08/17/17 05/04/25 Fredrick Barkley DO [address] [place] [address] PCP - General Internal Medicine 05/05/25 Manpreet Huber MD [address] [address] [email or web address] Intensive Care 02/24/19 Alfonzo Luis DO 30 [place] [address] [email or web address] Primary Oncologist Hematology and Oncology 09/03/20 Mary Willard FNP [address] [place] [address] [email or web address] Registered Nurse Nurse Practitioner 12/01/24 Aysha Clark NP [address] [place] [address] [email or web address] Nurse Practitioner Nurse Practitioner 12/14/24 12/22/24 documented as of this encounter Additional Source Comments The information contained in this document represents components of the legal health record. It is not the complete legal health record.[facility]
--- OUTSIDE RECORDS SUMMARY | 2025-06-28 18:58 | XMS_ITS | Encounter Summary ---
Author Organization [facility] Address [address] [place] [address] Phone Care Team Providers Care Marine Diesel Mechanic Name Role Phone Fredrick Barkley DO Primary Care Provider [phone] Manpreet Huber MD Unavailable [phone] Alfonzo Luis DO Unavailable [phone] Mary Willard PUTTIER Unavailable [phone] Aysha Clark LINE MANAGER Unavailable [phone] Fredrick Barkley DO Primary Care Provider [phone] Encounter Details Date Type Department Care Team (Late st Contact Info) Description 09/16/2018 Ancillary Orders Virtual Department [address] [place], [place] [id number] Malik Gomez MD [address] [place] [address], [address] [place] [address] [email or web address] Memory loss; Seizure; Tremor; TIA (transient ischemic attack) Social History Tobacco Use Types Packs/Day Years [...] End Date retired, worked 34 yrs at [employer] Not on file Not on file Not on file documented as of this encounter Plan of Treatment Upcoming Encounters Date Type Department Care Team (Late st Contact Info) Description 06/23/2025 Procedure Pass Event Monitor [address] [place] [address] 07/12/2025 8:30 AM EDT Appointment Non-Invasive Cardiology [address] [place] [address] Gene Oreilly, PHYSICS DEPARTMENT CHAIR [address] [place] [address] 07/21/2025 9:15 AM EDT Appointment Event Monitor [address] [place] [address] Gene Oreilly, PHYSICS DEPARTMENT CHAIR [address] [place] [address] 09/05/2025 9:30 AM EST Office Visit [facility], Allergy and Critical Care Medicine 10 [facility] [place] [address] [place] [address] Manpreet Huber MD 10 [facility] 2nd [place] [address] 09/25/2025 11:00 AM EST Office Visit [facility] [address], [address] [place] [address] Gene Oreilly, PHYSICS DEPARTMENT CHAIR [address] [place] [address] documented as of this encounter Results * EEG (09/29/2018 11:11 AM EST) Anatomical Region Laterality Modality EEG Narrative 09/30/2018 10:32 AM EST [facility] ELECTROENCEPHAL[facility]APHY (EEG) LAB INTRODUCTION: The patient is a 68 year old man referred for a question of seizures. MEDICATIONS: Not listed. CONDITION OF RECORDING: Digitally recorded EEG with the patient awake, drowsy and asleep with no instructions for sleep deprivation. All electrodes were applied in accordance with the International 10-20 System. A single channel EKG lead was recorded to help identify artifact. No major cardiac dysthymia was appreciated. SPECIAL PROCEDURES: None. EEG DESCRIPTION: Cerebral electrical activity with the patient awake was characterized by a well organized background with an 8-9 Hz, 20-30 uV posterior maximum reactive alpha rhythm. Intermittent arrhythmic 10-30 uV theta and delta activity was admixed. Stage I sleep was characterized by an increase in slow eye movements and a fragmentation of the alpha rhythm. Stage II sleep was characterized by synchronous and symmetric sleep spindles, vertex waves and K complexes. Photic stimulation was not performed. Hyperventilation was performed and did not reveal any abnormality. INTERPRETATION: This routine EEG, obtained with the patient awake, drowsy, and asleep, is within normal limits. No epileptiform activity or persistent focal asymmetries occurred. COMMENT: If an epileptic seizure disorder is still suspected, more prolonged EEG recording such as 24 hour AEEG or VEEG monitoring may be useful. Yann Craven MD [facility] Neurology Malik Gomez MD NEUROLOGY ORDERABLES Final R esult documented in this encounter Visit Diagnoses Diagnosis Memory loss Seizure Other convulsions Tremor Abnormal involuntary movements TIA (transient ischemic attack) Unspecified transient cerebral ischemia Memory loss Seizure Other convulsions Tremor Abnormal involuntary movements TIA (transient ischemic attack) Unspecified transient cerebral ischemia documented in this encounter Additional Health Concerns Infection Onset Date Last Indicated Resolved Time CoV-Risk 05/14/2020 05/16/2020 05/30/2020 1:23 AM EDT CoV-Risk 06/11/2022 06/11/2022 06/22/2022 1:22 AM EDT CoV-Risk 06/04/2024 06/04/2024 06/15/2024 1:21 AM EDT CoV-Risk Comment:Per note documentation 05/13/2025 05/13/2025 11:51 PM EDT documented as of this encounter Care Teams Marine Diesel Mechanic Relationship Specialty Start Date End Date Fredrick Barkley DO [email or web address] PCP - General Internal Medicine 08/17/17 05/04/25 Fredrick Barkley DO [address] [place] [address] PCP - General Internal Medicine 05/05/25 Manpreet Huber MD [address] [place] [address] [email or web address] Intensive Care 02/24/19 Alfonzo Luis DO [address] [place] [address] [email or web address] Primary Oncologist Hematology and Oncology 09/03/20 Mary Willard FNP [address] [place] [address] [email or web address] Registered Nurse Nurse Practitioner 12/01/24 Aysha Clark, ANDRÉS [address] [place] [address] [email or web address] Nurse Practitioner Nurse Practitioner 12/14/24 12/22/24 documented as of this encounter Additional Source Comments The information contained in this document represents components of the legal health record. It is not the complete legal health record.[facility]
--- OUTSIDE RECORDS SUMMARY | 2025-06-28 18:58 | XMS_ITS | Encounter Summary ---
Author Organization [facility] Address [address] [place] [address] Phone Care Team Providers Care Textile Clothing And Footwear Mechanic Name Role Phone Manpreet Huber MD Unavailable Alfonzo Luis DO Unavailable [phone] Mary Willard ASSISTANT BUYER Unavailable [phone] Fredrick Barkley DO Primary Care Provider [phone] Encounter Details Date Type Department Care Team (Late st Contact Info) Description 06/23/2025 Procedure Pass [facility], Ct Scan - [address] [address] Social History Tobacco Use Types Packs/Day Years [...] your housing situation today? I have indra zamora 06/23/2025 How many times have you move [...] at [facility] Not on file Not on file Not on file documented as of this encounter Functional Status * Calculated C-SSRS Risk Score (Lifetime/Recent) Answer Date of Assessment Author No Risk Indicated 06/23/2025 3:28 PM EDT Cheli Melchor RN * [place] Suicide Severity Rating Scale (Screener/Recent Self-Report) Question Answer Date of Assessment Author 1. Wish to be (Past 1 Month) No 06/23/2025 3:28 PM EDT Cheli Melchor, MARCELINA 2. Non-Specific Active Suicidal Thoughts (Past 1 Month) No 06/23/2025 3:28 PM EDT Cheli Melchor, MARCELINA 6. Suicidal Behavior (Lifetime) No 06/23/2025 3:28 PM EDT Cheli Melchor, MARCELINA documented as of this encounter Plan of Treatment Upcoming Encounters Date Type Department Care Team (Late st Contact Info) Description 06/23/2025 Procedure Pass Event Monitor [address] [place] [address] 07/12/2025 8:30 AM EDT Appointment Non-Invasive Cardiology [address] [place] [address] Gene Oreilly, HOME CARE CONSULTANT [address] [place] [address] 07/21/2025 9:15 AM EDT Appointment Event Monitor [address] [place] [address] Gene Oreilly, HOME CARE CONSULTANT [address] [place] [address] 09/05/2025 9:30 AM EST Office Visit [facility] Pulmonary, Allergy and Critical Care Medicine 10 [facility] [place] [address] Manpreet Huber MD 10 [facility] 2nd [place] [address] 09/25/2025 11:00 AM EST Office Visit [facility] [address]rd Floor, [address] [place] [address] Gene Oreilly, HOME CARE CONSULTANT [address] [place] [address] documented as of this encounter Goals Goal [...] increase respiratory distress. Psychosocial updates include: early detention, loss of financial stability, psychological and physical limitations, and most recently separation and planned divorce Current Homecare: Patient is followed by [facility] Insurance Brim Stiffener Nancy who is working to connect patient with home CROSSING TENDER and BH services. On Arrival to ED: [...] the community. Plan SW to connect with SIGN WIRER to determine if appointment has been made [...] documented as of this encounter Care Teams Textile Clothing And Footwear Mechanic Relationship Specialty Start Date End Date Fredrick Barkley DO [address] [place] [address] [email or web address] PCP - General Internal Medicine 05/05/25 Manpreet Huber MD [address] [place] [address] [email or web address] Intensive Care 02/24/19 Alfonzo Luis DO [address] [place] [address] [email or web address] Primary Oncologist Hematology and Oncology 09/03/20 Mary Willard FNP [address] [place] [address] [email or web address] Registered Nurse Nurse Practitioner 12/01/24 documented as of this encounter Additional Source Comments The information contained in this document represents components of the legal health record. It is not the complete legal health record.[facility]
--- OUTSIDE RECORDS SUMMARY | 2025-06-28 18:58 | XMS_ITS | Encounter Summary ---
Author Organization [facility] Address [address] [place] [address] Phone Care Team Providers Care Accounts Payable Manager Name Role Phone Manpreet Huber MD Unavailable [phone] Alfonzo Luis DO Unavailable Mary Willard SIGN HANGER SUPERVISOR Unavailable Fredrick Barkley DO Primary Care Provider [phone] Encounter Details Date Type Department Care Team (Late st Contact Info) Description 05/05/2025 Ancillary Orders Virtual Department 30 [place] [address] Fredrick Barkley DO [address] [facility] [place] [address] Pain (Primary Dx) Social History Tobacco Use Types Packs/Day Years Used Date Smoking Tobacco: Never Smokeless Tobacco: Never Alcohol Use Standard Drinks/Week Comments Yes 0 (1 standard drink = 0.6 oz pur e alcohol) Occ Home Health Assessment: Transportation Answer Date Recorded Lack of Transportation (Medical) No 04/16/2025 Lack of Transportation (Non-Medical) No 04/16/2025 Patient Unable or Declines to Respond No 04/16/2025 Education Answer Date Recorded Are you interested in more education? Not on carlos alberto e 02/05/2023 Are you concerned about learning? Not on file 02/05/2023 No 02/05/2023 No 02/05/2023 Digital Access Answer Date Recorded No 03/08/2023 No 03/08/2023 Reliable internet access at home? Not on file 03/08/2023 Device with a working camera? Not on file Intimate Partner Violence Answer Date R ecorded Are you denied basic needs s uch as food, clothing, or medical care? No 07/29/2024 In the past 12 months have y ou been in a relationship with a person who hurts, threatens, or tries to control you? No 07/29/2024 Are you denied basic needs s uch as food, clothing, or medical care? No 07/29/2024 In the past 12 months have y ou been in a relationship with a person who hurts, threatens, or tries to control you? No 07/29/2024 Sex and Gender Information Value Date Recorded Sex Assigned at Male 04/12/2018 10:53 AM EDT Legal Sex Male 5:57 PM EST Gender Identity Male 04/12/2018 10:53 AM EDT Sexual Orientation Straight 10/19/2017 9: 43 AM EST Occupation Industry Job Start Date Job End Date retired, worked 34 yrs at [employer] Not on file Not on file Not on file documented as of this encounter Plan of Treatment Upcoming Encounters Date Type Department Care Team ([facility] Contact Info) Description 06/23/2025 Procedure Pass Event Monitor [address] [place] [address] 07/12/2025 8:30 AM EDT Appointment Non-Invasive Cardiology [address] [place] [address] Gene Oreilly, ELENI [address] [place] [address] 07/21/2025 9:15 AM EDT Appointment Event Monitor [address] [place] [address] Gene Oreilly, ELENI [address] [place] [address] 09/05/2025 9:30 AM EST Office Visit [facility] Pulmonary, Allergy and Critical Care Medicine [address] [place] [address] [place] [address] Manpreet Huber MD [address] [facility] [address] 2nd [place] [address] [email or web address] 09/25/2025 11:00 AM EST Office Visit [facility] [address] [facility] 3rd Floor, [address] [place] [address] Gene Oreilly, LIEUTENANT/DEPUTY [address] [place] [address] [email or web address] documented as of this encounter [...] divorce Current Homecare: Patient is followed by [facility] Insurance Library Supervisor Nancy who is working to connect patient with home FACILITY ATTENDANT and BH services. On Arrival to ED: [...] from ED: Send Case Management Consult in [facility] to follow up that homecare [...] the community. Plan SW to connect with SCREEN CLEANER to determine if appointment has been made for outpatient mental health follow up and patient assigned a therapist.CM also will work with Clary MOSLEY to connect patient to SW/RN home services. SW will also discuss the possibility of CORRECTION. Issues/Plan: High risk of respiratory distress. Plan [...] documented as of this encounter Results * XR CERVICAL SPINE 2-3 VIEWS (05/05/2025 11:36 AM EDT) Anatomical Region Laterality Modality C-spine Computed Radiogr aphy 05/05/2025 3:22 PM EDT Impressions 05/05/2025 3:24 PM EDT Degenerative changes. No acute osseous abnormality. Narrative 05/05/2025 3:24 PM EDT XR CERVICAL SPINE 2-3 VIEWS Referring clinician's provided indication for this examination in Epic: Outside Radiology Order; Other Indication (Please use [...] clinician's provided indication for this examination in [facility]:Outside Radiology Order; Other Indication (Please use free text); numbnessand tingling COMPARISON: None FINDINGS: C7 is obscured on the lateral view. No acute fracture or compressionfracture. Multilevel disc height loss and uncovertebral hypertrophygreatest from C5 to C7. Severe multilevel facet osteoarthrosis. Nosignificant listhesis. IMPRESSION: Degenerative changes. No acute osseous abnormality. us Fredrick Barkley DO IMG XR SPINE Final Result documented in this encounter Visit Diagnoses Diagnosis Anesthesia of skin Disturbance of skin sensation Paresthesia of skin Pain Generalized pain Pain- Primary Generalized pain documented in this encounter Additional Health Concerns Infection Onset Date Last Indicated Resolved Time CoV-Risk Comment:Per note documentation 05/13/2025 05/13/2025 11:51 PM EDT Assessment Noted Time PHQ-9 Depression Total Score: 8 09/02/20 22 9:53 AM EST documented as of this encounter Care Teams Accounts Payable Manager Relationship Specialty Start Date End Date Fredrick Barkley DO [address] [place] [address] [email or web address] PCP - General Internal Medicine 05/05/25 Manpreet Huber MD [address] [address] [email or web address] Intensive Care 02/24/19 Alfonzo Luis DO 30 [place] [address] [email or web address] Primary Oncologist Hematology and Oncology 09/03/20 Mary Willard FNP [address] [place] [address] [email or web address] Registered Nurse Nurse Practitioner 12/01/24 documented as of this encounter Additional Source Comments The information contained in this document represents components of the legal health record. It is not the complete legal health record.[facility]
--- OUTSIDE RECORDS SUMMARY | 2025-06-28 18:58 | XMS_ITS | Encounter Summary ---
Author Organization [facility] Address [address] [facility] [address] [place] [address] Phone Care Team Providers Care Watcher Automat Long Goods Name Role Phone Fredrick Barkley DO Primary Care Provider [phone] Manpreet Huber MD Unavailable [phone] Alfonzo Luis DO Unavailable [phone] Mary Willard BLACK TOP ROLLER Unavailable [phone] Aysha Clark ESTABLISHMENT GUIDE Unavailable [phone] Fredrick Barkley DO Primary Care Provider [phone] Encounter Details Date Type Department Care Team (Late st Contact Info) Description 02/13/2023 Procedure Pass [facility], Ct Scan - [address] [id number] Social History Tobacco Use Types Packs/Day Years Used Date Smoking Tobacco: Never Smokeless Tobacco: Never Alcohol Use Standard Drinks/Week Comments Yes 0 (1 standard drink = 0.6 oz pur e alcohol) Education Answer Date Recorded Are you interested in more education? Not on carlos alberto e 02/05/2023 Are you concerned about learning? Not on file 02/05/2023 No 02/05/2023 No 02/05/2023 Sex and Gender Information Value Date Recorded Sex Assigned at Male 04/12/2018 10:53 AM EDT Legal Sex Male 5:57 PM EST Gender Identity Male 04/12/2018 10:53 AM EDT Sexual Orientation Straight 10/19/2017 9: 43 AM EST Occupation Industry Job Start Date Job End Date retired, worked [address] [employer] Not on file Not on file Not on file documented as of this encounter Functional Status * Calculated C-SSRS Risk Score (Lifetime/Recent) Answer Date of Assessment Author No Risk Indicated 02/13/2023 3:35 PM EDT Sandy Cartagena RN * [place] Suicide Severity Rating Scale (Screener/Recent Self-Report) Question Answer Date of Assessment Author 1. Wish to be (Past 1 Month) No 023 3:35 PM EDT Sandy Cartagena RN 2. Non-Specific Active Suici bryson Thoughts (Past 1 Month) No 02/13/2023 3:35 PM EDT Petros Cartagena RN 6. Suicidal Behavior (Lifetime) No 3:35 PM EDT Sandy Cartagena RN documented as of this encounter Plan of Treatment Upcoming Encounters Date Type Department Care Team (Late st Contact Info) Description 06/23/2025 Procedure Pass Event Monitor [address] [place] [address] 07/12/2025 8:30 AM EDT Appointment Non-Invasive Cardiology [address] [place] [address] Gene Oreilly, C T TECH [address] [place] [address] 07/21/2025 9:15 AM EDT Appointment Event Monitor [address] [place] [address] Gene Oreilly, C T TECH [address] [place] [address] 09/05/2025 9:30 AM EST Office Visit [facility] Pulmonary, Allergy and Critical Care Medicine [address] [place] [address] Manperet Huber MD [address] [place] [address] 09/25/2025 11:00 AM EST Office Visit [facility] [address] Floor, [address] [place] [address] Gene Oreilly, C T TECH [address] [place] [address] [email or web address] documented as [...] followed by [facility] [employer] Culinary Internship Nancy who is working to connect patient with home ESTABLISHMENT GUIDE and services. On Arrival to ED: When [...] the community. Plan SW to connect with BALL WINDER to determine if appointment has been made [...] documented as of this encounter Care Teams Watcher Automat Long Goods Relationship Specialty Start Date End Date Fredrick Barkley DO PCP - General Internal Medicine 08/17/17 05/04/25 Fredrick Barkley DO [address] [place] [address] [email or web address] PCP - General Internal Medicine 05/05/25 Manpreet Huber MD [address] [place] [address] [email or web address] Intensive Care 02/24/19 Alfonzo Luis DO [address] [place] [address] [email or web address] Primary Oncologist Hematology and Oncology 09/03/20 Mary Willard FNP [address] [place] [address] [email or web address] Registered Nurse Nurse Practitioner 12/01/24 Aysha Clark NP [address] [place] [address] [email or web address] Nurse Practitioner Nurse Practitioner 12/14/24 12/22/24 documented as of this encounter Additional Source Comments The information contained in this document represents components of the legal health record. It is not the complete legal health record.[facility]
--- OUTSIDE RECORDS SUMMARY | 2025-06-28 18:58 | XMS_ITS | Encounter Summary ---
Author Organization [facility] Address [address] [place] [address] Phone Care Team Providers Care Textiles Printer Name Role Phone Manpreet Huber MD Unavailable [phone] Alfonzo Luis DO Unavailable [phone] Mary Willard MEAT PROCESS WORKER Unavailable [phone] Fredrick Barkley DO Primary Care Provider [phone] Encounter Details Date Type Department Care Team (Late st Contact Info) Description 06/23/2025 Procedure Pass , Ct Scan - [address] [address] Social History Tobacco Use Types Packs/Day Years [...] End Date retired, worked 34 yrs at [employer] Not on file Not on file Not on file documented as of this encounter Functional Status * Calculated C-SSRS Risk Score (Lifetime/Recent) Answer Date of Assessment Author No Risk Indicated 06/23/2025 3:28 PM EDT Cheli Melchor RN * [place] Suicide Severity Rating Scale (Screener/Recent Self-Report) Question [...] Description 06/23/2025 Procedure Pass Event Monitor [address] [place] [address] 07/12/2025 8:30 AM EDT Appointment Non-Invasive Cardiology [address] [place] [address] Gene Oreilly, MECHANICAL ARTIST [address] [place] [address] 07/21/2025 9:15 AM EDT Appointment Event Monitor [address] [place] [address] Gene Oreilly, MECHANICAL ARTIST [address] [place] [address] 09/05/2025 9:30 AM EST Office Visit [facility] Pulmonary, Allergy and Critical Care Medicine [address] [facility] [place] [address] Manpreet Huber MD 10 [facility] 2nd [place] [address] 09/25/2025 11:00 AM EST Office Visit [facility] [address]rd Floor, [address] [place] [address] Gene Oreilly, MECHANICAL ARTIST [address] [place] [address] documented as of this encounter Goals Goal [...] increase respiratory distress. Psychosocial updates include: early fpc, loss of financial stability, psychological and physical limitations, and most recently separation and planned divorce Current Homecare: Patient is followed by [facility] Insurance Citrus Fruit Packer Nancy who is working to connect patient with home DRILL FOREMAN and BH services. On Arrival to ED: [...] the community. Plan SW to connect with RIVER GUIDE to determine if appointment has been made for outpatient mental health follow up and patient assigned a therapist. also will work with Clary MOSLEY to connect patient to SW/RN home services. SW will also discuss the possibility of RETIREMENT. Issues/Plan: High risk of respiratory distress. Plan [...] documented as of this encounter Care Teams Textiles Printer Relationship Specialty Start Date End Date Fredrick Barkley DO [address] [place] [address] [email or web address] PCP - General Internal Medicine 05/05/25 Manpreet Huber MD [address] [place] [address] [email or web address] Intensive Care 02/24/19 Alfonzo Luis DO [address] [place] [address] [email or web address] Primary Oncologist Hematology and Oncology 09/03/20 Mary Willard FNP [address] [place] [address] [email or web address] Registered Nurse Nurse Practitioner 12/01/24 documented as of this encounter Additional Source Comments The information contained in this document represents components of the legal health record. It is not the complete legal health record.[facility]
--- OUTSIDE RECORDS SUMMARY | 2025-06-28 18:58 | XMS_ITS | Encounter Summary ---
Author Organization [facility] Address [address] [place] [address] Phone Care Team Providers Care Law Instructor Name Role Phone Manpreet Huber MD Unavailable [phone] Alfonzo Luis DO Unavailable [phone] Mary Willard HISTORY FACULTY MEMBER Unavailable [phone] Fredrick Barkley DO Primary Care Provider [phone] Encounter Details Date Type Department Care Team (Late st Contact Info) Description 06/27/2025 Telephone [facility] [address] [place] [address] Mary Willard HISTORY FACULTY MEMBER [address] [place] [address] [email or web address] Social History Tobacco Use Types Packs/Day [...] End Date retired, worked 34 yrs at [employer] Not on file Not on file Not on file documented as of this encounter Progress Notes * Mary Willard FNP - 06/27/2025 3:33 PM EDT This patient is due for follow up and Eligard. Please schedule accordingly. Thank you documented in this encounter Plan of Treatment Upcoming Encounters Date Type Department Care Team (Late st Contact Info) Description 06/23/2025 Procedure Pass Event Monitor [address] [place] [address] 07/12/2025 8:30 AM EDT Appointment Non-Invasive Cardiology [address] [place] [address] Gene Oreilly, TUBER MACHINE OPERATOR [address] [place] [address] [email or web address] 07/21/2025 9:15 AM EDT Appointment Event Monitor [address] [place] [address] Gene Oreilly, TUBER MACHINE OPERATOR [address] [place] [address] [email or web address] 09/05/2025 9:30 AM EST Office Visit [facility] Pulmonary, Allergy and Critical Care Medicine 10 [facility] [place] [address] Manpreet Huber MD 10 [facility] 2nd [place] [address] 09/25/2025 11:00 AM EST Office Visit [facility] [address] Floor, [address] [place] [address] Gene Oreilly, TUBER MACHINE OPERATOR [address] [place] [address] [email or web address] documented as of this encounter Goals Goal [...] increase respiratory distress. Psychosocial updates include: early halfway, loss of financial stability, psychological and physical limitations, and most recently separation and planned divorce Current Homecare: Patient is followed by [facility] Insurance Crimper Assembler Nancy who is working to connect patient with home JAVA USER INTERFACE DEVELOPER and BH services. On Arrival to ED: [...] from ED: Send Case Management Consult in [facility] to follow up that homecare services are in place and if additional services are needed this can then be coordinated If patient is to be admitted to Hospital: Consult should be made for and services upon admission [facility] and Psychosocial Considerations: Anxiety and Depression and recent separation and pending divorce Issues/Plan: Lack of connection to therapist in the community. Plan to connect with WEIGHTS AND MEASURES INSPECTOR to determine if appointment has been [...] alcantar CM , Ava Bland PA, Romana RUGGIERO, Kelsie Musa CM documented as of this encounter Visit Diagnoses Not on filedocumented in this encounter Additional Health Concerns Assessment Noted Time PHQ-9 Depression Total Score: 8 09/02/20 22 9:53 AM EST documented as of this encounter Care Teams Law Instructor Relationship Specialty Start Date End Date Fredrick Barkley DO [address] [place] [address] [email or web address] PCP - General Internal Medicine 05/05/25 Manpreet Huber MD [address] [place] [address] [email or web address] Intensive Care 02/24/19 Alfonzo Luis DO 30 [place] [address] [email or web address] Primary Oncologist Hematology and Oncology 09/03/20 Mary Willard FNP [address] [place] [address] [email or web address] Registered Nurse Nurse Practitioner 12/01/24 documented as of this encounter Additional Source Comments The information contained in this document represents components of the legal health record. It is not the complete legal health record.[facility]
--- OUTSIDE RECORDS SUMMARY | 2025-06-28 18:58 | XMS_ITS | Encounter Summary ---
Author Organization [facility] Address [address] [facility] [address] [place] [address] Phone Care Team Providers Care Top Flavor Attendant Name Role Phone Manpreet Huber MD Unavailable [phone] Alfonzo Luis DO Unavailable [phone] Mary Willard LITIGATION SPECIALIST Unavailable [phone] Fredrick Barkley DO Primary Care Provider [phone] Encounter Details Date Type Department Care Team (Late st Contact Info) Description 05/16/2025 Home Health Resumption of Care Planning Means [facility] [address] [place] [address] Megan Simmons RN [address] [place] [address] [email or web address] Social History [...] got money to buy more. Never True 05/19/2025 Within the past 6 months the food we bought just didn't last and we didn't have enough money to get more. Never True Residential Stability Answer Date Recor ded What is your housing situation today? I have indra sing 05/19/2025 How many times have you move d in the past 12 months? Zero (I did not move) 05/19/2025 Paying for Meds Answer Date Recorded Do you have trouble paying for medicines? No 05/19/2025 Paying Utility Bills Answer Date Record ed Do you have trouble paying your heating or elect ricity bill? No 05/19/2025 Transportation Answer Date Recorded Has the lack of transportati on kept you from medical appointments or from getting medications? No 05/19/2025 Digital Access Answer Date Recorded Yes 05/19/2025 Yes 05/19/2025 Do you have reliable internet access at home? No 05/19/2025 Do you have a device (e.g., phone, tablet, computer) with a working camera? Yes 05/19/2025 Intimate Partner Violence Answer Date R ecorded Are you denied basic needs s uch as food, clothing, or medical care? No 05/19/2025 In the past 12 months have y ou been in a relationship with a person who hurts, threatens, or tries to control you? No 05/19/2025 Are you denied basic needs s uch as food, clothing, or medical care? No 05/19/2025 In the past 12 months have y ou been in a relationship with a person who hurts, threatens, or tries to control you? No 05/19/2025 Sex and Gender Information Value Date Recorded Sex Assigned at Male 04/12/2018 10:53 AM EDT Legal Sex Male 5:57 PM EST Gender Identity Male 04/12/2018 10:53 AM EDT Sexual Orientation Straight 10/19/2017 9: 43 AM EST Occupation Industry Job Start Date Job End Date retired, worked 34 yrs at [employer] Not on file Not on file Not on file documented as of this encounter Functional Status * Calculated C-SSRS Risk Score (Lifetime/Recent) Answer Date of Assessment Author No Risk Indicated 05/19/2025 7:27 AM EDT Shameka Zarate RN * [place] Suicide Severity Rating Scale (Screener/Recent Self-Report) Question Answer Date of Assessment Author 1. Wish to be (Past 1 Month) No 05/19/2025 7:27 AM EDT Shameka Zarate, MARCELINA 2. Non-Specific Active Suici bryson Thoughts (Past 1 Month) No 05/19/2025 7:27 AM EDT Shameka Zarate, MARCELINA 6. Suicidal Behavior (Lifetime) No 7:27 AM EDT Shameka Zarate, MARCELINA documented as of this encounter Plan of Treatment Upcoming Encounters Date Type Department Care Team (Late st Contact Info) Description 06/23/2025 Procedure Pass Event Monitor [address] [place] [address] 07/12/2025 8:30 AM EDT Appointment Non-Invasive Cardiology [address] [place] [address] Gene Oreilly, RESIDENCE SUPERVISOR [address] [place] [address] 07/21/2025 9:15 AM EDT Appointment Event Monitor [address] [place] [address] Gene Oreilly, RESIDENCE SUPERVISOR [address] [place] [address] 09/05/2025 9:30 AM EST Office Visit [facility] Pulmonary, Allergy and Critical Care Medicine [address] [facility] [place] [address] Manpreet Huber MD 10 [facility] 2nd [place] [address] 09/25/2025 11:00 AM EST Office Visit [facility] [address], [address] [place] [address] Gene Oreilly, RESIDENCE SUPERVISOR [address] [place] [address] [email or web address] documented as of this encounter Goals Goal [...] divorce Current Homecare: Patient is followed by [facility] Insurance Laboratory Cureman Nancy who is working to connect patient with home MANAGER EMERGENCY DEPARTMENT and BH services. On Arrival to ED: [...] from ED: Send Case Management Consult in [facility] to follow up that [...] the community. Plan SW to connect with COST CONTROL SUPERVISOR to determine if appointment has been [...] documented as of this encounter Care Teams Top Flavor Attendant Relationship Specialty Start Date End Date Fredrick Barkley DO [address] [place] [address] [email or web address] PCP - General Internal Medicine 05/05/25 Manpreet Huber MD [address] [place] [address] [email or web address] Intensive Care 02/24/19 Alfonzo Luis DO 30 [place] [address] [email or web address] Primary Oncologist Hematology and Oncology 09/03/20 Mary Willard FNP [address] [place] [address] Registered Nurse Nurse Practitioner 12/01/24 documented as of this encounter Additional Source Comments The information contained in this document represents components of the legal health record. It is not the complete legal health record.[facility]
--- OUTSIDE RECORDS SUMMARY | 2025-06-28 18:58 | XMS_ITS | Encounter Summary ---
Author Organization [facility] Address [address] [facility] [address] [place] [address] Phone Care Team Providers Care Roofing Subcontractor Name Role Phone Manpreet Huber MD Unavailable [phone] Alfonzo Luis DO Unavailable [phone] Mary Willard MOBILE SALES CONSULTANT Unavailable [phone] Fredrick Barkley DO Primary Care Provider [phone] Encounter Details Date Type Department Care Team (Late st Contact Info) Description 05/05/2025 Ancillary Orders [facility], [facility] - [facility] [address] [place] [address] Fredrick Barkley DO [address] [facility] [address] [place], [place] [id number] [email or web address] Pain (Primary Dx) Social History Tobacco Use [...] End Date retired, worked 34 yrs at [employer] Not on file Not on file Not on file documented as of this encounter Plan of Treatment Upcoming Encounters Date Type Department Care Team (Late st Contact Info) Description 06/23/2025 Procedure Pass Event Monitor [address] [place] [address] 07/12/2025 8:30 AM EDT Appointment Non-Invasive [place] [address] Gene Oreilly, ELENI [address] [place] [address] 07/21/2025 9:15 AM EDT Appointment Event Monitor [address] [place] [address] Gene Oreilly, ELENI [address] [place] [address] 09/05/2025 9:30 AM EST Office Visit [facility] Pulmonary, Allergy and Critical Care Medicine 10 [facility] [place] [address] Manpreet Huber MD 10 [facility] 2nd [place] [address] 09/25/2025 11:00 AM EST Office Visit [facility] [address] [facility] [address] [facility], [address] [place] [address] Gene Oreilly, ADJUNCT INSTRUCTOR OF WOMEN'S STUDIES [address] [place] [address] documented as of this encounter Goals Goal [...] increase respiratory distress. Psychosocial updates include: early fci, loss of financial stability, psychological and physical limitations, and most recently separation and planned divorce Current Homecare: Patient is followed by [facility] Insurance Glove Factory Sewer Nancy who is working to connect patient with home SECOND MATE and services. On Arrival to ED: When [...] from ED: Send Case Management Consult in [facility] to follow up that homecare services [...] the community. Plan SW to connect with CLAIMS SUPPORT SPECIALIST to determine if appointment has been made [...] as of this encounter Visit Diagnoses Diagnosis Pain- Primary Generalized pain documented in this encounter Additional Health Concerns Infection Onset Date Last Indicated Resolved Time CoV-Risk Comment:Per note documentation 05/13/2025 05/13/2025 5 11:51 PM EDT Assessment Noted Time PHQ-9 Depression Total Score: 8 09/02/20 22 9:53 AM EST documented as of this encounter Care Teams Roofing Subcontractor Relationship Specialty Start Date End Date Fredrick Barkley DO [address] [place] [address] PCP - General Internal Medicine 05/05/25 Manpreet Huber MD [address] [place] [address] [email or web address] Intensive Care 02/24/19 Alfonzo Luis DO [address] [place] [address] [email or web address] Primary Oncologist Hematology and Oncology 09/03/20 Mary Willard FNP [address] [place] [address] [email or web address] Registered Nurse Nurse Practitioner 12/01/24 documented as of this encounter Additional Source Comments The information contained in this document represents components of the legal health record. It is not the complete legal health record.[facility]
--- OUTSIDE RECORDS SUMMARY | 2025-06-28 18:58 | XMS_ITS | Encounter Summary ---
Author Organization [facility] Address [address] [facility] [address] [place] [address] Phone Care Team Providers Care Boilers And Pressure Vessels Inspector Name Role Phone Fredrick Barkley DO Primary Care Provider [phone] Manpreet Huber MD Unavailable [phone] Alfonzo Luis DO Unavailable [phone] Mary Willard PLANT OPERATIONS COORDINATOR Unavailable [phone] Aysha Clark PRODUCT MANAGEMENT MANAGER Unavailable [phone] Fredrick Barkley DO Primary Care Provider [phone] Encounter Details Date Type Department Care Team (Late st Contact Info) Description 09/27/2021 Procedure Pass [facility], Ct Scan - [address] [address] Social History Tobacco Use Types Packs/Day Years [...] End Date retired, worked 34 yrs at [employer] Not on file Not on file Not on file documented as of this encounter Plan of Treatment Upcoming Encounters Date Type Department Care Team (Late st Contact Info) Description 06/23/2025 Procedure Pass Event Monitor [address] [place] [address] 07/12/2025 8:30 AM EDT Appointment Non-Invasive Cardiology [address] [place] [address] Gene Oreilly, ELENI [address] [place] [address] 07/21/2025 9:15 AM EDT Appointment Event Monitor [address] [place] [address] Gene Oreilly, OUTSOLE SKIVER [address] [place] [address] 09/05/2025 9:30 AM EST Office Visit [facility] [place] Pulmonary, Allergy and Critical Care Medicine [address] [facility] [place] [address] Manpreet Huber MD 10 [facility] 2nd [place] [address] 09/25/2025 11:00 AM EST Office Visit [facility] 22 [facility] 3rd Floor, [address] [place] [address] Gene Oreilly, ELENI [address] [place] [address] documented as of this encounter Goals Goal [...] increase respiratory distress. Psychosocial updates include: early usp, loss of financial stability, psychological and physical limitations, and most recently separation and planned divorce Current Homecare: Patient is followed by [facility] Insurance Emissions Testing Technician Nancy who is working to connect patient with home PRODUCT MANAGEMENT MANAGER and BH services. On Arrival to [...] from ED: Send Case Management Consult in [facility] to follow up that homecare [...] the community. Plan SW to connect with BALLET DANCER to determine if appointment has been made [...] documented as of this encounter Care Teams Boilers And Pressure Vessels Inspector Relationship Specialty Start Date End Date Fredrick Barkley DO [email or web address] PCP - General Internal Medicine 08/17/17 05/04/25 Fredrick Barkley DO [address] [place] [address] [email or web address] PCP - General Internal Medicine 05/05/25 Manpreet Huber MD [address] [place] [address] [email or web address] Intensive Care 02/24/19 Alfonzo Luis DO [address] [place] [address] [email or web address] Primary Oncologist Hematology and Oncology 09/03/20 Mary Willard FNP [address] [place] [address] [email or web address] Registered Nurse Nurse Practitioner 12/01/24 Aysha Clark, PRODUCT MANAGEMENT MANAGER [address] [place] [address] [email or web address] Nurse Practitioner Nurse Practitioner 12/14/24 12/22/24 documented as of this encounter Additional Source Comments The information contained in this document represents components of the legal health record. It is not the complete legal health record.[facility]
--- OUTSIDE RECORDS SUMMARY | 2025-06-28 18:58 | XMS_ITS | Encounter Summary ---
Author Organization [facility] Address [address] [place] [address] Phone Care Team Providers Care Control Clerk Subassembly Name Role Phone Manpreet Huber MD Unavailable [phone] Alfonzo Luis DO Unavailable [phone] Mary Willard PROFESSOR OF OCEANOGRAPHY Unavailable [phone] Fredrick Barkley DO Primary Care Provider [phone] Encounter Details Date Type Department Care Team (Late st Contact Info) Description 05/20/2025 Procedure Pass [facility] [address] [place] [address] Social History Tobacco Use Types Packs/Day Years Used Date Smoking Tobacco: Never Smokeless Tobacco: Never Alcohol Use Standard Drinks/Week Comments Not Currently 0 (1 standard drink = 0.6 oz pur e alcohol) Occ Home Health Assessment: Transportation Answer Date Recorded Lack of Transportation (Medical) No 05/23/2025 Lack of Transportation (Non-Medical) No 05/23/2025 Patient Unable or Declines to Respond No 05/23/2025 Education Answer Date Recorded Are you interested [...] housing situation today? I have indra zamora 05/19/2025 How many times have you move [...] End Date retired, worked 34 yrs at [employer] Not on file Not on file Not on file documented as of this encounter Plan of Treatment Upcoming Encounters Date Type Department Care Team (Late st Contact Info) Description 06/23/2025 Procedure Pass Event Monitor [address] [place] [address] 07/12/2025 8:30 AM EDT Appointment Non-Invasive Cardiology [address] [place] [address] Gene Oreilly, ELENI [address] [place] [address] [email or web address] 07/21/2025 9:15 AM EDT Appointment Event Monitor [address] [place] [address] Gene Oreilly, ELENI [address] [place] [address] [email or web address] 09/05/2025 9:30 AM EST Office Visit [facility] Allergy and Critical Care Medicine 10 [facility] [place] [address] Manpreet Huber MD 10 [facility] 2nd [place] [address] 09/25/2025 11:00 AM EST Office Visit [facility] [address] [facility] 3rd Floor, [address] [place] [address] Gene Oreilly CNP [address] [place] [address] documented as of this encounter Goals Goal [...] Current Homecare: Patient is followed by [facility] Manager Nancy who is working to connect patient with home STREET LIGHT SERVICER and BH services. On Arrival to ED: [...] from ED: Send [facility] to follow up that homecare [...] the community. Plan SW to connect with GEOPHYSICAL PARTY CHIEF to determine if appointment has been made for outpatient mental health follow up and patient assigned a therapist.CM also will work with Clary MOSLEY to connect patient to SW/RN home services. SW will also discuss the possibility of LONG-TERM. Issues/Plan: High risk of respiratory distress. Plan [...] documented as of this encounter Care Teams Control Clerk Subassembly Relationship Specialty Start Date End Date Fredrick Barkley DO [address] [place] [address] [email or web address] PCP - General Internal Medicine 05/05/25 Manpreet Huber MD [address] [place] [address] [email or web address] Intensive Care 02/24/19 Alfonzo Luis DO 30 [place] [address] [email or web address] Primary Oncologist Hematology and Oncology 09/03/20 Mary Willard FNP 30 [place] [address] [email or web address] Registered Nurse Nurse Practitioner 12/01/24 documented as of this encounter Additional Source Comments The information contained in this document represents components of the legal health record. It is not the complete legal health record.[facility]
--- OUTSIDE RECORDS SUMMARY | 2025-06-28 18:58 | XMS_ITS | Encounter Summary ---
Author Organization [facility] Address [address] [place] [address] Phone Care Team Providers Care Environmental Test Technician Name Role Phone Manpreet Huber MD Unavailable [phone] Alfonzo Luis DO Unavailable [phone] Mary Willard SOA INTEGRATION DEVELOPER Unavailable [phone] Fredrick Barkley DO Primary Care Provider [phone] Reason for Visit * Reason Comments Medication Refill Encounter Details Date Type Department Care Team (Late st Contact Info) Description 06/27/2025 Refill [facility] 30 [place] [address] Aleja Trujillo, [place] [facility] 30 [place] [address] [email or web address] Medication Refill Social History Tobacco Use Types Packs/Day Years [...] End Date retired, worked 34 yrs at [employer] Not on file Not on file Not on file documented as of this encounter Progress Notes * Richard Gonzalezriella Mable - 06/27/2025 12:41 PM EDT NIRU:CHANCE documented in this encounter Plan of Treatment Upcoming Encounters Date Type Department Care Team (Late st Contact Info) Description 06/23/2025 Procedure Pass Event Monitor [address] [place] [address] 07/12/2025 8:30 AM EDT Appointment Non-Invasive Cardiology [address] [place] [address] Gene Oreilly, ENROBING MACHINE OPERATOR [address] [place] [address] [email or web address] 07/21/2025 9:15 AM EDT Appointment Event Monitor [address] [place] [address] Gene Oreilly, ENROBING MACHINE OPERATOR [address] [place] [address] [email or web address] 09/05/2025 9:30 AM EST Office Visit [facility] Pulmonary, Allergy and Critical Care Medicine 10 [facility] [place] [address] Manpreet Huber MD 10 [facility] 2nd [place] [address] 09/25/2025 11:00 AM EST Office Visit [facility] [address] Floor, [address] [place] [address] Gene Oreilly, ENROBING MACHINE OPERATOR [address] [place] [address] [email or web address] documented as of this encounter Goals Goal [...] is followed by [facility] Insurance Welt Beater Nancy who is working to connect patient with home WOODWORK SALVAGE INSPECTOR and services. On Arrival to ED: When [...] from ED: Send Case Management Consult in [facility] to follow up that homecare services are [...] the community. Plan SW to connect with DERRICK BOAT LEVERMAN to determine if appointment has been made [...] documented as of this encounter Care Teams Environmental Test Technician Relationship Specialty Start Date End Date Fredrick Barkley DO [address] [place] [address] [email or web address] PCP - General Internal Medicine 05/05/25 Manpreet Huber MD [address] [place] [address] [email or web address] Intensive Care 02/24/19 Alfonzo Luis DO [address] [place] [address] [email or web address] Primary Oncologist Hematology and Oncology 09/03/20 Mary Willard FNP 30 [place] [address] [email or web address] Registered Nurse Nurse Practitioner 12/01/24 documented as of this encounter Additional Source Comments The information contained in this document represents components of the legal health record. It is not the complete legal health record.[facility]
--- OUTSIDE RECORDS SUMMARY | 2025-06-28 18:58 | XMS_ITS | Encounter Summary ---
Author Organization [facility] Address [address] [place] [address] Phone Care Team Providers Care Mold Puller Name Role Phone Fredrick Barkley DO Primary Care Provider [phone] Manpreet Huber MD Unavailable [phone] Alfonzo Luis DO Unavailable [phone] Mary Willard SAS DEVELOPER ANALYST Unavailable [phone] Fredrick Barkley DO Primary Care Provider [phone] Reason for Visit * Reason Comments Medication Refill Encounter Details Date Type Department Care Team (Late st Contact Info) Description 04/19/2025 Refill [facility] [address] [facility] 3rd Floor, [address] [place], [place] [phone] Jesus Malhotra DO 22 [facility] [address] [place] [phone] [email or web address] Medication Refill Social History [...] Description 06/23/2025 Procedure Pass Event Monitor [address] [place] [address] 07/12/2025 8:30 AM EDT Appointment Non-[place] [address] Gene Oreilly, ELENI [address] [place] [address] 07/21/2025 9:15 AM EDT Appointment Event Monitor [address] [place] [address] Gene Oreilly, ELENI [address] [place] [address] [email or web address] 09/05/2025 9:30 AM EST Office Visit [facility] Pulmonary, Allergy and Critical Care Medicine 10 [facility] [place] [address] Manpreet Huber MD 10 [facility] 2nd [place] [address] [email or web address] 09/25/2025 11:00 AM EST Office Visit [facility] 3[address], [address] [place] [address] Gene Oreilly, MIDDLE SCHOOL DIRECTOR 50 [place] [address] [email or web address] documented as of this [...] Current Homecare: Patient is followed by [facility] Insurance Harbor Police Lieutenant Nancy who is working to connect patient with home PROJECTION CAMERA OPERATOR and BH services. On Arrival to [...] from ED: Send Case Management Consult in [facility] to follow up that homecare services [...] the community. Plan SW to connect with STUDIO ARTIST to determine if appointment has been made [...] documented as of this encounter Care Teams Mold Puller Relationship Specialty Start Date End Date Fredrick Barkley DO PCP - General Internal Medicine 08/17/17 05/04/25 Fredrick Barkley DO [address] [place] [address] [email or web address] PCP - General Internal Medicine 05/05/25 Manpreet Huber MD [address] [place] [address] [email or web address] Intensive Care 02/24/19 Alfonzo Luis DO 30 [place] [address] [email or web address] Primary Oncologist Hematology and Oncology 09/03/20 Mary Willard FNP [address] [place] [address] [email or web address] Registered Nurse Nurse Practitioner 12/01/24 documented as of this encounter Additional Source Comments The information contained in this document represents components of the legal health record. It is not the complete legal health record.[facility]
--- OUTSIDE RECORDS SUMMARY | 2025-06-28 18:58 | XMS_ITS | Encounter Summary ---
Author Organization [facility] Address [address] [place] [address] Phone Care Team Providers Care Primary Mill Roller Name Role Phone Fredrick Barkley DO Primary Care Provider [phone] Manpreet Huber MD Unavailable [phone] Alfonzo Luis DO Unavailable [phone] Mary Willard CLERK SECRETARY Unavailable [phone] Fredrick Barkley DO Primary Care Provider [phone] Encounter Details Date Type Department Care Team (Late st Contact Info) Description 05/03/2025 Transcribe Orders Virtual Department 30 [place] [address] Fredrick Barkley DO [address] [facility] [place] [address] [email or web address] Anesthesia of skin (Primary Dx); Paresthesia of skin Social History Tobacco Use Types Packs/Day Years [...] End Date retired, worked 34 yrs at [employer] Not on file Not on file Not on file documented as of this encounter Plan of Treatment Upcoming Encounters Date Type Department Care Team (Late st Contact Info) Description 06/23/2025 Procedure Pass Event Monitor [address] [place] [address] 07/12/2025 8:30 AM EDT Appointment Non-Invasive Cardiology [address] [place] [address] Gene Oreilly, CERTIFICATION TECHNICIAN [address] [place] [address] 07/21/2025 9:15 AM EDT Appointment Event Monitor [address] [place] [address] Gene Oreilly, CERTIFICATION TECHNICIAN [address] [place] [address] 09/05/2025 9:30 AM EST Office [place] [facility] [place], Allergy and Critical Care Medicine 10 [facility] [place] [address] Manpreet Huber MD 10 [facility] 2nd [place] [address] 09/25/2025 11:00 AM EST Office Visit [facility] [address], [address] [place] [address] Gene Oreilly, CERTIFICATION TECHNICIAN 50 [place] [address] [email or web address] documented as of this encounter [...] divorce Current Homecare: Patient is followed by [facility] Insurance Assembly Line Upholsterer Nancy who is working to connect patient with home HEAVY DUTY PRESS OPERATOR and BH services. On Arrival to [...] from ED: Send Case Management Consult in [facility] to follow up that homecare [...] the community. Plan SW to connect with HEAT TREAT INSPECTOR to determine if appointment has been [...] as of this encounter Visit Diagnoses Diagnosis Anesthesia of skin- Primary Disturbance of skin sensation Paresthesia of skin documented in this encounter Additional Health Concerns Infection Onset Date Last Indicated Resolved Time CoV-Risk Comment:Per note documentation 05/13/2025 05/13/2025 11:51 PM EDT Assessment Noted Time PHQ-9 Depression Total Score: 8 09/02/20 22 9:53 AM EST documented as of this encounter Care Teams Primary Mill Roller Relationship Specialty Start Date End Date Fredrick Barkley DO PCP - General Internal Medicine 08/17/17 05/04/25 Fredrick Barkley DO [address] [place] [address] [email or web address] PCP - General Internal Medicine 05/05/25 Manpreet Huber MD [address] [place] [address] [email or web address] Intensive Care 02/24/19 Alfonzo Luis DO 30 [place] [address] [email or web address] Primary Oncologist Hematology and Oncology 09/03/20 Mary Willard FNP 30 [place] [address] [email or web address] Registered Nurse Nurse Practitioner 12/01/24 documented as of this encounter Additional Source Comments The information contained in this document represents components of the legal health record. It is not the complete legal health record.[facility]
--- OUTSIDE RECORDS SUMMARY | 2025-06-28 18:58 | XMS_ITS | Encounter Summary ---
Author Organization [facility] Address [address] [place] [address] Phone Care Team Providers Care Business Services Analyst Name Role Phone Manpreet Huber MD Unavailable [phone] Alfonzo Luis DO Unavailable Mary Willard LINE TENDER FLAKEBOARD Unavailable Fredrick Barkley DO Primary Care Provider [phone] Encounter Details Date Type Department Care Team (Late st Contact Info) Description 05/05/2025 Ancillary Orders Virtual Department 30 [place] [address] Fredrick Barkley DO 179 [facility] [place] [address] [email or web address] Anesthesia of skin (Primary Dx); Paresthesia of [...] Date retired, worked 34 yrs at [employer] Not on file Not on file Not on file documented as of this encounter Plan of Treatment Upcoming Encounters Date Type Department Care Team (Late st Contact Info) Description 06/23/2025 Procedure Pass Event Monitor [address] [place] [address] 07/12/2025 8:30 AM EDT Appointment Non-Invasive Cardiology [address] [place] [address] Gene Oreilly, ELENI [address] [place] [address] 07/21/2025 9:15 AM EDT Appointment Event Monitor [address] [place] [address] Gene Oreilly, ELENI [address] [place] [address] 09/05/2025 9:30 AM EST Office Visit [facility] Pulmonary, Allergy and Critical Care Medicine 10 [facility] [place] [address] Manpreet Huber MD [address] [facility] [address] 2nd [place] [address] 09/25/2025 11:00 AM EST Office Visit [facility] [address] [facility] [address], [address] [place] [address] Gene Oreilly, OIM CONSULTANT 50 [place] [address] documented as of this encounter Goals Goal [...] divorce Current Homecare: Patient is followed by [facility] Insurance Negative Notcher Nancy who is working to connect patient with home LINEN ROOM ATTENDANT and services. On Arrival to ED: When [...] from ED: Send Case Management Consult in [facility] to follow up that homecare services are [...] the community. Plan SW to connect with INFORMATION TECHNOLOGY ASSISTANT to determine if appointment has been made [...] Ava GARCIA, Romana Bernardo SW, Kelsie Musa documented as of this encounter [...] as of this encounter Care Teams Business Services Analyst Relationship Specialty Start Date End Date Fredrick Barkley DO [address] [place] [address] PCP - General Internal Medicine 05/05/25 Manpreet Huber MD [address] [place] [address] [email or web address] Intensive Care 02/24/19 Alfonzo Luis DO [address] [place] [address] [email or web address] Primary Oncologist Hematology and Oncology 09/03/20 Mary Willard FNP [address] [place] [address] [email or web address] Registered Nurse Nurse Practitioner 12/01/24 documented as of this encounter Additional Source Comments The information contained in this document represents components of the legal health record. It is not the complete legal health record.[facility]
--- OUTSIDE RECORDS SUMMARY | 2025-06-28 18:58 | XMS_ITS | Encounter Summary ---
Author Organization [facility] Address [address] [facility] [facility] [address] [place] [address] Phone Care Team Providers Care Tree Feller Name Role Phone Fredrick Barkley DO Primary Care Provider [phone] Manpreet Huber MD Unavailable [phone] Alfonzo Luis DO Unavailable [phone] Mary Willard MACHINE LACER Unavailable [phone] Aysha Clark HARMONIC ANALYST Unavailable [phone] Fredrick Barkley DO Primary Care Provider [phone] Encounter Details Date Type Department Care Team (Late st Contact Info) Description 08/02/2021 Procedure Pass [facility], Ct Scan - [address] [address] Social History Tobacco Use Types Packs/Day Years [...] End Date retired, worked 34 yrs at [employer] Not on file Not on file Not on file documented as of this encounter Functional Status * Calculated C-SSRS Risk Score (Lifetime/Recent) Answer Date of Assessment Author No Risk Indicated 08/02/2021 1:28 AM EDT Cheli New, MARCELINA * [place] Suicide Severity Rating Scale (Screener/Recent Self-Report) Question Answer Date of Assessment Author 1. Wish to be (Past 1 Month) No 08/02/2021 1:28 AM EDT Cheli New, MARCELINA 2. Non-Specific Active Suici bryson Thoughts (Past 1 Month) No 08/02/2021 1:28 AM EDT Marquita New RN 6. Suicidal Behavior (Lifetime) No 1:28 AM EDT Cheli New RN documented as of this encounter Plan of Treatment Upcoming Encounters Date Type Department Care Team (Late st Contact Info) Description 06/23/2025 Procedure Pass Event Monitor [address] [place] [address] 07/12/2025 8:30 AM EDT Appointment Non-Invasive Cardiology [address] [place] [address] Gene Oreilly, TUGBOAT DISPATCHER 50 [place] [address] [email or web address] 07/21/2025 9:15 AM EDT Appointment Event Monitor [address] [place] [address] Gene Oreilly, TUGBOAT DISPATCHER [address] [place] [address] 09/05/2025 9:30 AM EST Office Visit [facility] Pulmonary, Allergy and Critical Care Medicine 10 [place] [address] Manpreet Huber MD [address] [address] 09/25/2025 11:00 AM EST Office Visit [facility] [address] Floor, [address] [place] [address] Gene Oreilly, TUGBOAT DISPATCHER 50 [place] [address] [email or web address] documented as of this encounter Goals Goal [...] divorce Current Homecare: Patient is followed by [facility] Insurance Laboratory Helper Nancy who is working to connect patient with home HARMONIC ANALYST and BH services. On Arrival to [...] from ED: Send Case Management Consult in [facility] to follow up that homecare services [...] the community. Plan SW to connect with STORE ASSISTANT to determine if appointment has been [...] documented as of this encounter Care Teams Tree Feller Relationship Specialty Start Date End Date Fredrick Barkley DO PCP - General Internal Medicine 08/17/17 05/04/25 Fredrick Barkley DO [address] [place] [address] PCP - General Internal Medicine 05/05/25 Manpreet Huber MD [address] [place] [address] [email or web address] Intensive Care 02/24/19 Alfonzo Luis DO [address] [place] [address] [email or web address] Primary Oncologist Hematology and Oncology 09/03/20 Mary Willard FNP [address] [place] [address] [email or web address] Registered Nurse Nurse Practitioner 12/01/24 Aysha Clark NP [address] [place] [address] [email or web address] Nurse Practitioner Nurse Practitioner 12/14/24 12/22/24 documented as of this encounter Additional Source Comments The information contained in this document represents components of the legal health record. It is not the complete legal health record.[facility]
--- OUTSIDE RECORDS SUMMARY | 2025-06-28 18:58 | XMS_ITS | Encounter Summary ---
Author Organization [facility] Address [address] [facility] [address] [place] [address] Phone Care Team Providers Care Shipping Technician Name Role Phone Fredrick Barkley DO Primary Care Provider [phone] Manpreet Huber MD Unavailable [phone] Alfonzo Luis DO Unavailable [phone] Mary Willard DISPATCHER RADIO Unavailable [phone] Aysha Clark KAIWHAKAHAERE Unavailable [phone] Fredrick Barkley DO Primary Care Provider [phone] Encounter Details Date Type Department Care Team (Late st Contact Info) Description 09/13/2018 Ancillary Orders Virtual Department [address] [place], [place] [id number] Malik Gomez MD [address] [place] [address], [address] [place] [address] [email or web address] TIA (transient ischemic attack) Social History Tobacco [...] End Date retired, worked 34 yrs at [employer] Not on file Not on file Not on file documented as of this encounter Plan of Treatment Upcoming Encounters Date Type Department Care Team (Late st Contact Info) Description 06/23/2025 Procedure Pass Event Monitor [address] [place] [address] 07/12/2025 8:30 AM EDT Appointment Non-Invasive Cardiology [address] [place] [address] Gene Oreilly, CONSTRUCTION JOB TITLES [address] [place] [address] 07/21/2025 9:15 AM EDT Appointment Event Monitor [address] [place] [address] Gene Oreilly, CONSTRUCTION JOB TITLES [address] [place] [address] 09/05/2025 9:30 AM EST Office Visit [facility] Pulmonary, Allergy and Critical Care Medicine 10 [facility] [address] [place] [address] Manpreet Huber MD 10 [facility] 2nd [place] [address] 09/25/2025 11:00 AM EST Office Visit [facility] [address], [address] [place] [address] Gene Oreilly, CONSTRUCTION JOB TITLES [address] [place] [address] documented as of this encounter Results * US Carotid Duplex (Bilateral) (09/22/2018 1:35 PM EST) Anatomical Region Laterality Modality Heart, Thoracic Vasculature, Neck Ultrasound 09/22/2018 1:41 PM EST Impressions 09/22/2018 2:01 PM EST 1. Moderate left internal carotid artery stenosis corresponding to 50-69% stenosis which is on the lower end of the range with a decrease in velocity since the prior exam. Progressive moderate mixed plaque in the right bifurcation. No hemodynamically significant right internal carotid artery stenosis. Decrease in right ICA velocities since the prior exam. 2. Bilateral antegrade vertebral artery flow. POS - [id number] Narrative 09/22/2018 2:01 PM EST COMPARISON:05/15/2015. CAROTID ULTRASOUND FINDINGS: RIGHT: Peak external carotid artery: 181 cm/sec Peak vertebral: 41 cm/sec and antegrade Carotid artery morphology: Progressive mixed plaque in the bifurcation. Peak common carotid artery: 92/17 cm/sec Peak internal carotid artery: 114/34 cm/sec Normal peak systolic ratio. LEFT: Peak external carotid artery: 172 cm/sec Peak vertebral: 29 cm/sec and antegrade Carotid artery morphology: Stable moderate mixed plaque in the bifurcation. Peak common carotid artery: 117/30 cm/sec Peak internal carotid artery: 140/44 cm/sec Normal peak systolic ratio. Any stenosis measurement is relative to the distal ICA diameters. Procedure Note Ciara Segura MD - 09/22/2018 COMPARISON:05/15/2015. CAROTID ULTRASOUND FINDINGS: RIGHT: Peak external carotid artery: 181 cm/sec Peak vertebral: 41 cm/sec and antegrade Carotid artery morphology: Progressive mixed plaque in the bifurcation. Peak common carotid artery: 92/17 cm/sec Peak internal carotid artery: 114/34 cm/sec Normal peak systolic ratio. LEFT: Peak external carotid artery: 172 cm/sec Peak vertebral: 29 cm/sec and antegrade Carotid artery morphology: Stable moderate mixed plaque in thebifurcation. Peak common carotid artery: 117/30 cm/sec Peak internal carotid artery: 140/44 cm/sec Normal peak systolic ratio. Any stenosis measurement is relative to the distal ICA diameters. IMPRESSION: 1. Moderate left internal carotid artery stenosis corresponding to 50- 69%stenosis which is on the lower end of the range with a decrease invelocity since the prior exam. Progressive moderate mixed plaque in theright bifurcation. No hemodynamically significant right internal carotidartery stenosis. Decrease in right ICA velocities since the prior exam. 2. Bilateral antegrade vertebral artery flow. POS - [id number] Malik Gomez MD CV US NEUROVASCULAR Final Re sult documented in this encounter Visit Diagnoses Diagnosis TIA (transient ischemic attack) Unspecified transient cerebral ischemia TIA (transient ischemic attack) Unspecified transient cerebral ischemia documented in this encounter Additional Health Concerns Infection Onset Date Last Indicated Resolved Time CoV-Risk 05/14/2020 05/16/2020 05/30/2020 1:23 AM EDT CoV-Risk 06/11/2022 06/11/2022 06/22/2022 1:22 AM EDT CoV-Risk 06/04/2024 06/04/2024 06/15/2024 1:21 AM EDT CoV-Risk Comment:Per note documentation 05/13/2025 05/13/2025 11:51 PM EDT documented as of this encounter Care Teams Shipping Technician Relationship Specialty Start Date End Date Fredrick Barkley DO PCP - General Internal Medicine 08/17/17 05/04/25 Fredrick Barkley DO [address] [place] [address] PCP - General Internal Medicine 05/05/25 Manpreet Huber MD [address] [place] [address] Intensive Care 02/24/19 Alfonzo Luis DO 30 [place] [address] [email or web address] Primary Oncologist Hematology and Oncology 09/03/20 Mary Willard FNP [address] [place] [address] [email or web address] Registered Nurse Nurse Practitioner 12/01/24 Aysha Clark NP [address] [place] [address] [email or web address] Nurse Practitioner Nurse Practitioner 12/14/24 12/22/24 documented as of this encounter Additional Source Comments The information contained in this document represents components of the legal health record. It is not the complete legal health record.[facility]
--- OUTSIDE RECORDS SUMMARY | 2025-06-28 18:59 | XMS_ITS | Encounter Summary ---
Author Organization [facility] Address [address] [place] [address] [place] [address] Phone Care Team Providers Care Delivery Table Operator Name Role Phone Fredrick Barkley DO Primary Care Provider [phone] Manpreet Huber MD Unavailable [phone] Alfonzo Luis DO Unavailable [phone] Mary Willard MARKETING ADMINISTRATIVE ASSISTANT Unavailable [phone] Aysha Clark FORMING AND ASSEMBLING SUPERVISOR Unavailable [phone] Fredrick Barkley DO Primary Care Provider [phone] Encounter Details Date Type Department Care Team (Late st Contact Info) Description 05/04/2018 Procedure Pass [facility], [address] [address] Social History Tobacco Use Types Packs/Day Years [...] End Date retired, worked 34 yrs at [employer] Not on file Not on file Not on file documented as of this encounter Plan of Treatment Upcoming Encounters Date Type Department Care Team (Late st Contact Info) Description 06/23/2025 Procedure Pass Event Monitor [address] [place] [address] 07/12/2025 8:30 AM EDT Appointment Non-Invasive Cardiology [address] [place] [address] Gene Oreilly, IS CONSULTANT [address] [place] [address] 07/21/2025 9:15 AM EDT Appointment Event Monitor [address] [place] [address] Gene Oreilly, IS CONSULTANT [address] [place] [address] 09/05/2025 9:30 AM EST Office Visit [facility] Pulmonary, Allergy and Critical Care Medicine 10 [facility] [place] [address] Manpreet Huber MD 10 [facility] 2nd [place] [address] 09/25/2025 11:00 AM EST Office Visit [facility] 22 [facility] 3rd Floor, [address] [place] [address] Gene Oreilly, IS CONSULTANT [address] [place] [address] documented as of this encounter Visit Diagnoses Not on filedocumented in this encounter Additional Health Concerns Infection Onset Date Last Indicated Resolved Time CoV-Risk 05/14/2020 05/16/2020 05/30/2020 1:23 AM EDT CoV-Risk 06/11/2022 06/11/2022 06/22/2022 1:22 AM EDT CoV-Risk 06/04/2024 06/04/2024 06/15/2024 1:21 AM EDT CoV-Risk Comment:Per note documentation 05/13/2025 05/13/2025 11:51 PM EDT documented as of this encounter Care Teams Delivery Table Operator Relationship Specialty Start Date End Date Fredrick Barkley DO PCP - General Internal Medicine 08/17/17 05/04/25 Fredrick Barkley DO [address] [place] [address] PCP - General Internal Medicine 05/05/25 Manpreet Huber MD [address] [place] [address] Intensive Care 02/24/19 Alfonzo Luis DO [address] [place] [address] [email or web address] Primary Oncologist Hematology and Oncology 09/03/20 Mary Willard FNP 30 [place] [address] Registered Nurse Nurse Practitioner 12/01/24 Aysha Clark NP 30 [place] [address] [email or web address] Nurse Practitioner Nurse Practitioner 12/14/24 12/22/24 documented as of this encounter Additional Source Comments The information contained in this document represents components of the legal health record. It is not the complete legal health record.[facility]
--- OUTSIDE RECORDS SUMMARY | 2025-06-28 18:59 | XMS_ITS | Encounter Summary ---
Author Organization [facility] Address [address] [facility] [address] [place] [address] Phone Care Team Providers Care Bowl Topper Name Role Phone Fredrick Barkley DO Primary Care Provider + Fredrick Barkley DO Primary Care Provider + Manpreet Huber MD Unavailable [phone] Alfonzo Luis DO Unavailable [phone] Mary Willard SIZE TESTER Unavailable [phone] Aysha Clark ACCOUNTING FILE CLERK Unavailable [phone] BigFredrick thornton DO Primary Care Provider + Encounter Details Date Type Department Care Team (Late st Contact Info) Description 12/02/2016 Procedure Pass [facility] Imaging [address] [place] [address] Social History Tobacco Use Types Packs/Day Years Used Date Smoking Tobacco: Never Smokeless Tobacco: Never Alcohol Use Standard Drinks/Week Comments Not Currently 0 (1 standard drink = 0.6 oz pur e alcohol) Occ Sex and Gender Information Value Date Recorded Sex Assigned at Male 04/12/2018 10:53 AM EDT Legal Sex Male 5:57 PM EST Gender Identity Male 04/12/2018 10:53 AM EDT Sexual Orientation Straight 10/19/2017 9: 43 AM EST Occupation Industry Job Start Date Job End Date retired, worked 34 yrs at [employer] Not on file Not on file Not on file documented as of this encounter Plan of Treatment Upcoming Encounters Date Type Department Care Team (Late st Contact Info) Description 06/23/2025 Procedure Pass Event Monitor [address] [place] [address] 07/12/2025 8:30 AM EDT Appointment Non-Invasive Cardiology [address] [place] [address] Gene Oreilly, CHANNELER INSOLE [address] [place] [address] 07/21/2025 9:15 AM EDT Appointment Event Monitor [address] [place] [address] Gene Oreilly, CHANNELER INSOLE [address] [place] [address] 09/05/2025 9:30 AM EST Office Visit [facility] Pulmonary, Allergy and Critical Care Medicine 10 [facility] [place] [address] Manpreet Huber MD 10 [facility] 2nd [place] [address] 09/25/2025 11:00 AM EST Office Visit [facility] 22 [facility] 3rd Floor, [address] [place] [address] Gene Oreilly, CHANNELER INSOLE [address] [place] [address] documented as of this encounter Visit Diagnoses Not on filedocumented in this encounter Additional Health Concerns Infection Onset Date Last Indicated Resolved Time CoV-Risk 05/14/2020 05/16/2020 05/30/2020 1:23 AM EDT CoV-Risk 06/11/2022 06/11/2022 06/22/2022 1:22 AM EDT CoV-Risk 06/04/2024 06/04/2024 06/15/2024 1:21 AM EDT CoV-Risk Comment:Per note documentation 05/13/2025 05/13/2025 11:51 PM EDT documented as of this encounter Care Teams Bowl Topper Relationship Specialty Start Date End Date Filippo Fredrick RsosDO [address] [place] [address] [email or web address] PCP - General 04/11/14 08/16/17 Fredrick Barkley DO [address] [place] [address] [email or web address] PCP - General Internal Medicine 08/17/17 05/04/25 Fredrick Barkley DO [address] [place] [address] [email or web address] PCP - General Internal Medicine 05/05/25 Manpreet Huber MD [address] [place] [address] [email or web address] Intensive Care 02/24/19 Alfonzo Luis DO 30 [place] [address] [email or web address] Primary Oncologist Hematology and Oncology 09/03/20 Mary Willard FNP [address] [place] [address] [email or web address] Registered Nurse Nurse Practitioner 12/01/24 Aysha [place], ANDRÉS [address] [place] [address] [email or web address] Nurse Practitioner Nurse Practitioner 12/14/24 12/22/24 documented as of this encounter Additional Source Comments The information contained in this document represents components of the legal health record. It is not the complete legal health record.[facility]
--- OUTSIDE RECORDS SUMMARY | 2025-06-28 18:59 | XMS_ITS | Encounter Summary ---
Author Organization [facility] Address [address] [facility] [address] [place] [address] Phone Care Team Providers Care Laborer Syrup Machine Name Role Phone Fredrick Barkley DO Primary Care Provider [phone] Manpreet Huber MD Unavailable [phone] Alfonzo Luis DO Unavailable [phone] Mary Willard MANAGER PROGRAMS Unavailable [phone] Aysha Clark GAS METER PROVER Unavailable [phone] Fredrick Barkley DO Primary Care Provider + Encounter Details Date Type Department Care Team (Latest Contact Info) Description 12/16/2017 Transcribe Orders [facility] Laboratory [address] 2nd Floor [place], [place] [phone] Cristiane Jean PA Malignant neoplasm of prostate (Primary Dx) Social [...] Orientation Straight 10/19/2017 9: 43 AM EST documented as of this encounter Plan of Treatment Upcoming Encounters Date Type Department Care Team (Late st Contact Info) Description 06/23/2025 Procedure Pass Event Monitor [address] [place] [address] 07/12/2025 8:30 AM EDT Appointment Non-Invasive Cardiology [address] [place] [address] Gene Oreilly, VAULT MECHANIC [address] [place] [address] 07/21/2025 9:15 AM EDT Appointment Event Monitor [address] [place] [address] Gene Oreilly, VAULT MECHANIC [address] [place] [address] 09/05/2025 9:30 AM EST Office [facility], Allergy and Critical Care Medicine 10 [facility] [place] [address] Manpreet Huber MD [address] [place] [address] 2nd [place] [address] 09/25/2025 11:00 AM EST Office Visit [facility] 22 [facility] 3rd Floor, [address] [place] [address] Gene Oreilly, VAULT MECHANIC [address] [place] [address] documented as of this encounter Results * PSA (screening) (12/16/2017 10:53 AM EST) PSA 1.63 0 - 4.00 ng/mL [facility] Blood 12/16/2017 10:5 3 AM EST 12/16/2017 10:59 AM EST us Cristiane GARCIA LAB BLOOD ORDERABLES Final Re sult [facility] [address] [place] [address] documented in this encounter Visit Diagnoses Diagnosis Malignant neoplasm of prostate- Primary documented in this encounter Additional Health Concerns Infection Onset Date Last Indicated Resolved Time CoV-Risk 05/14/2020 05/16/2020 05/30/2020 1:23 AM EDT CoV-Risk 06/11/2022 06/11/2022 06/22/2022 1:22 AM EDT CoV-Risk 06/04/2024 06/04/2024 06/15/2024 1:21 AM EDT CoV-Risk Comment:Per note documentation 05/13/2025 05/13/2025 11:51 PM EDT documented as of this encounter Care Teams Laborer Syrup Machine Relationship Specialty Start Date End Date Fredrick Barkley DO [email or web address] PCP - General Internal Medicine 08/17/17 05/04/25 Fredrick Barkley DO [address] [place] [address] [email or web address] PCP - General Internal Medicine 05/05/25 Manpreet Huber MD [address] [place] [address] [email or web address] Intensive Care 02/24/19 Alfonzo Luis DO 30 [place] [address] [email or web address] Primary Oncologist Hematology and Oncology 09/03/20 Mary Willard FNP 30 [place] [address] [email or web address] Registered Nurse Nurse Practitioner 12/01/24 Aysha [place] NP [address] [place] [address] [email or web address] Nurse Practitioner Nurse Practitioner 12/14/24 12/22/24 documented as of this encounter Additional Source Comments The information contained in this document represents components of the legal health record. It is not the complete legal health record.[facility]
--- OUTSIDE RECORDS SUMMARY | 2025-06-28 18:59 | XMS_ITS | Encounter Summary ---
Author Organization [facility] Address [address] [facility] [address] [place] [address] Phone Care Team Providers Care Deputy Clerk Name Role Phone Fredrick Barkley DO Primary Care Provider [phone] BigFredrick thornton DO Primary Care Provider +[phone] Manpreet Huber MD Unavailable [phone] Alfonzo Luis DO Unavailable [phone] Mary Willard OPHTHALMIC MEDICAL ASSISTANT Unavailable [phone] Aysha Clark SENIOR GIS ANALYST Unavailable [phone] Bignorberto, Fredrick A DO Primary Care Provider + Encounter Details Date Type Department Care Team (Latest Contact Info) Description 08/03/2017 Transcribe Orders [facility] 30 [place] [address] Manpreet Huber MD [address] [place] [phone] [email or web address] Moderate persistent asthma without complication (Primary Dx); Vocal cord dysfunction Social History Tobacco Use Types Packs/Day Years Used Date Smoking Tobacco: Never Assessed Sex and Gender Information Value Date Recorded Sex Assigned at Male 04/12/2018 10:53 AM EDT Legal Sex Male 5:57 PM EST Gender Identity Male 04/12/2018 10:53 AM EDT Sexual Orientation Straight 10/19/2017 9: 43 AM EST documented as of this encounter Plan of Treatment Upcoming Encounters Date Type Department Care Team (Late st Contact Info) Description 06/23/2025 Procedure Pass Event Monitor [address] [place] [address] 07/12/2025 8:30 AM EDT Appointment Non-Invasive Cardiology [address] [place] [address] Gene Oreilly CNP [address] [place] [address] 07/21/2025 9:15 AM EDT Appointment Event Monitor [address] [place] [address] Gene Oreilly, ELENI [address] [place] [address] 09/05/2025 9:30 AM EST Office Visit [facility] Pulmonary, Allergy and Critical Care Medicine 10 [facility] [place] [address] Manpreet Huber MD 10 [facility] 2nd [place] [address] 09/25/2025 11:00 AM EST Office Visit [facility] 22 [facility] 3rd Floor, [address] [place] [address] Gene Oreilly CNP [address] [place] [address] documented as of this encounter Results * Pulmonary Function Test (10/13/2017 11:12 AM EST) FEV1 2.99 liters FVC 3.54 liters FEV1/FVC 85 % TLC 5.13 liters DLCO 18.7 ml/mmHg sec Anatomical Region Laterality Modality Other Impressions 10/13/2017 11:12 AM EST PULMONARY FUNCTION STUDIES Full pulmonary function studies were performed on this 67 y.o. year-old male for evaluation of moderate persistent asthma and vocal cord dysfunction. Reviewed of the medical record reveals that the patient is a never smoker. Prior pulmonary function studies are available for comparison. SPIROMETRY: The FEV1 is normal at 2.99 L or 98 % predicted. The FVC is normal at 3.54 L or 79 % predicted. The FEV1/FVC ratio is normal at 85 %. Bronchodilator agent was not administered due to prior history of inducing laryngospasm. FLOW-VOLUME LOOPS: Evaluation of the flow-volume loops reveals normal morphology of both the inspiratory and expiratory limbs with no significant difference when comparing the tracings performed pre- and post-bronchodilator. LUNG VOLUME MEASUREMENTS BY NITROGEN WASHOUT: The total lung capacity is mildly impaired at 5.13 L or 78 % predicted. The functional residual capacity is mildly impaired at 2.00 L or 61 % predicted. Of note, the ERV is markedly impaired, likely representing the imprint of body habitus, DIFFUSION CAPACITY: The diffusion capacity is mildly impaired at 18.7 mL/mmHg sec or 72 % predicted. COMPARISON TO PRIOR STUDIES: When comparing to prior studies, last available from November 2010, spirometry and lung volumes are unchanged but diffusion capacity has mildly diminished. Resting oxygen saturation is 94 % on room air. IMPRESSION: Mildly abnormal pulmonary function studies with relatively normal spirometry, mild restriction primarily on the basis of the patient's body habitus with mild reduction diffusion capacity. Compared to priors, diffusion capacity decreases new. Clinical and radiographic correlation advised. Manpreet Huber MD PFT ORDERABLES Final Result documented in this encounter Visit Diagnoses Diagnosis Moderate persistent asthma without complication- Primary Vocal cord dysfunction Other diseases of vocal cords Vocal cord dysfunction Other diseases of vocal cords Moderate persistent asthma without complication documented in this encounter Additional Health Concerns Infection Onset Date Last Indicated Resolved Time CoV-Risk 05/14/2020 05/16/2020 05/30/2020 1:23 AM EDT CoV-Risk 06/11/2022 06/11/2022 06/22/2022 1:22 AM EDT CoV-Risk 06/04/2024 06/04/2024 06/15/2024 1:21 AM EDT CoV-Risk Comment:Per note documentation 05/13/2025 05/13/2025 11:51 PM EDT documented as of this encounter Care Teams Deputy Clerk Relationship Specialty Start Date End Date Fredrick Barkley DO [address] [place] [address] [email or web address] PCP - General 04/11/14 08/16/17 Fredrick Barkley DO [address] [place] [address] [email or web address] PCP - General Internal Medicine 08/17/17 05/04/25 Fredrick Barkley DO [address] [place] [address] [email or web address] PCP - General Internal Medicine 05/05/25 Manpreet Huber MD [address] [place] [address] [email or web address] Intensive Care 02/24/19 Alfonzo Luis DO [address] [place] [address] [email or web address] Primary Oncologist Hematology and Oncology 09/03/20 Mary Willard FNP [address] [place] [address] [email or web address] Registered Nurse Nurse Practitioner 12/01/24 Aysha Clark NP [address] [place] [address] [email or web address] Nurse Practitioner Nurse Practitioner 12/14/24 12/22/24 documented as of this encounter Additional Source Comments The information contained in this document represents components of the legal health record. It is not the complete legal health record.[facility]
--- OUTSIDE RECORDS SUMMARY | 2025-06-28 18:59 | XMS_ITS | Encounter Summary ---
Author Organization [facility] Address [address] [place] [address] [place] [phone] Phone Care Team Providers Care Enterprise Systems Manager Name Role Phone Fredrick Barkley DO Primary Care Provider [phone] Manpreet Huber MD Unavailable [phone] Alfonzo Luis DO Unavailable [phone] Mary Willard [employer] Unavailable [phone] Aysha Clark FIELD MARKETING LEAD Unavailable [phone] Fredrick Barkley DO Primary Care Provider + Encounter Details Date Type Department Care Team (Late st Contact Info) Description 12/17/2017 Procedure Pass [facility] Endoscopy Admitting Dept Virtual Department [address] [place] [address] Social History Tobacco Use Types Packs/Day Years [...] Description 06/23/2025 Procedure Pass Event Monitor [address] [place] [address] 07/12/2025 8:30 AM EDT Appointment Non-Invasive Cardiology [address] [place] [address] Gene Oreilly, SENIOR TECHNICAL SPECIALIST [address] [place] [address] 07/21/2025 9:15 AM EDT Appointment Event Monitor [address] [place] [address] Gene Oreilly, SENIOR TECHNICAL SPECIALIST [address] [place] [phone] 09/05/2025 9:30 AM EST Office Visit [facility] Pulmonary, Allergy and Critical Care Medicine [address] [facility] [place] [address] Manpreet Huber MD [address] [place] [address] [address] [place] [address] 09/25/2025 11:00 AM EST Office Visit [facility] [address], [address] [place] [address] Gene Oreilly, ELENI [address] [place] [phone] documented as of this encounter Visit Diagnoses Not on filedocumented in this encounter Additional Health Concerns Infection Onset Date Last Indicated Resolved Time CoV-Risk 05/14/2020 05/16/2020 05/30/2020 1:23 AM EDT CoV-Risk 06/11/2022 06/11/2022 06/22/2022 1:22 AM EDT CoV-Risk 06/04/2024 06/04/2024 06/15/2024 1:21 AM EDT CoV-Risk Comment:Per note documentation 05/13/2025 05/13/2025 11:51 PM EDT documented as of this encounter Care Teams Enterprise Systems Manager Relationship Specialty Start Date End Date Fredrick Barkley DO [email or web address] PCP - General Internal Medicine 08/17/17 05/04/25 Fredrick Barkley CodyDO [address] [place] [address] PCP - General Internal Medicine 05/05/25 Manpreet Huber MD [address] [place] [id number] [email or web address] Intensive Care 02/24/19 Alfonzo Luis DO [address] [place] [address] [email or web address] Primary Oncologist Hematology and Oncology 09/03/20 Mary Willard FNP [address] [place] [address] [email or web address] Registered Nurse Nurse Practitioner 12/01/24 Aysha Clark NP [address] [place] [phone] [email or web address] Nurse Practitioner Nurse Practitioner 12/14/24 12/22/24 documented as of this encounter Additional Source Comments The information contained in this document represents components of the legal health record. It is not the complete legal health record.[facility]
== END 2025-06-28 15:37 | disposition home or self-care (01) ==
LOC: HO.MANLDS 15:36
PROVIDERS: Visit Provider Internal Medicine
DX: E11.9 Type 2 diabetes mellitus without complications (principal)
CPT/HCPCS: 36415; 83036